=== PATIENT | female | born 1945 | race Caucasian/White ===

== ENCOUNTER 2022-12-07 10:30 | Outpatient (RCR) | payer MEDICARE, BC, SELFPAY ==
--- NOTE | 2022-09-18 11:49 | HP.PTEVAL_ITS ---
Patient's Visit Information BURT FERNANDEZ is a 77 year old F referred to Physical Therapy by Dr. Reggie Vela MD with a diagnosis of L reverse TSA. Date of Evaluation: 09/18/22 Physical Therapist: Rob Cruz PT, ATC - Visit Plan Frequency: 2-3x /Week Duration: 4-6 Weeks Plan: Follow protocol in Chart. PROM for first 3 weeks, then AAROM for weeks 4- 6. Progress to strengthening at week 6 to focus on rotator cuff and scapular strengthening ex's - Subjective DOS: 09/11/22. Pt reports she had a lot of pain with specific movements prior to having a L reverse TSA. Pt reports she was in a mopad injury a couple of years ago and believes this may have been what caused her shoulder to degenerate. Pt reports she has only taken 2 oxicodons since her surgery. Pt is able to manage most of her pain through the use of icing. Pt is R hand dominant. Pt reports no sleep difficulty at this time secondary to pain. Pt denies L UE radiculopathy at this time. Pt reports she likes to quilt and looks forward to being able to do that again. Pt also notes she likes to work in her flower beds. Pt also notes she is unable to perform house cleaning chores which she would like to get back to. 1/10 pain while pt is sitting here in the clinic, 6/10 pain at worst - Pain L shoulder Pain Intensity (Out of 10): 1 Pain Intensity Range: 6 - Objective Neuro: B UE sensation is WNL to light touch. ROM: R shoulder AROM flex= 105, abd= 100, ER= 25, IR WFL; L shoulder PROM flex= 45, scap = 45 degrees. MMT: R shoulder flex= 10, abd= 17, ER= ,12 IR= 13#F; L shoulder not tested this date but rated at 1/5 due to having minimal AROM - Balance/Special Test Scores Quick DASH Score: 34.0900 - Goals Goal 1:: Decrease L shoulder pain x 50% to aid with IADL's Goal Time Frame: 4-6 Weeks Goal 2:: Increase L shoulder flex and abd ROM x 40 degrees to aid with overhead lifting Goal Time Frame: 4-6 Weeks Goal 3:: Increase L shoulder strength to within 90% of R shoulder strength to aid with IADL's Goal Time Frame: 4-6 Weeks Goal 4:: I with HEP Goal Time Frame: 4-6 Weeks - Rehabilitation Potential Physical Therapy Diagnosis: L shoulder pain, weakness, and limited ROM secondary to reverse L TSA Rehabilitation Potential: Good - Anticipated Interventions Patient/Client Instruction: Educate patient on: Condition, Plan of Care For the Purpose of:: To improve self management Therapeutic Exercise to Include: Strength training, Endurance training, Flexibilty training, Passive ROM, Active ROM, Scapular Strength/Stabilization For the Purpose of:: To decrease pain, To increase ROM, To improve muscle performance and motor function Cryotherapy (ice pack, ice massage): Yes For the Purpose of:: To decrease pain Thank you for the opportunity to evaluate your patient. For Medicare and Medicare HMO plans, please review the plan of care and approve it. It will need to be FAXED BACK to us at [phone] for Medicare purposes. For Medicare only, by signing this I certify the plan of care. Please let me know if there are questions or concerns regarding this plan of care. Physician Signature: Date:
--- NOTE | 2022-10-18 07:32 | HP.PTREVAL ---
Dr. Reggie Vela MD, It has been my pleasure to treat BURT FERNANDEZ over the last 9 visits for L reverse TSA 09/11/22. Please see the progress note below for an update on the physical therapy plan of care! Subjective: I feel like I am ready to be done. My pain is the worst at night. Objective/Function: L shoulder pain ranges from 2-4/10. L shoulder ROM: flex= 80, abd= 75 degrees. L shoulder MMT: flex= 5.3, abd= 10, ER= 6.3, IR= 10 #F. Pt is progressing well toward Rx goals Plan Plan: Cont 2 times per week for 2 weeks. Issue and instruct pt on HEP of rotator cuff strengthening Balance/Gait/Functional tests - Balance/Special Test Scores Quick DASH Score: 50.0000 Goals Goal 1:: Decrease L shoulder pain x 50% to aid with IADL's Goal Time Frame: 4-6 Weeks Goal Progress: Progressing Goal 2:: Increase L shoulder flex and abd ROM x 40 degrees to aid with overhead lifting Goal Time Frame: 4-6 Weeks Goal Progress: Progressing Goal 3:: Increase L shoulder strength to within 90% of R shoulder strength to aid with IADL's Goal Time Frame: 4-6 Weeks Goal Progress: Progressing Goal 4:: I with HEP Goal Time Frame: 4-6 Weeks Goal Progress: Progressing Anticipated Interventions Patient/Client Instruction: Educate patient on: Condition, Plan of Care For the Purpose of:: To improve self management Therapeutic Exercise to Include: Strength training, Endurance training, Flexibilty training, Passive ROM, Active ROM, Scapular Strength/Stabilization For the Purpose of:: To decrease pain, To increase ROM, To improve muscle performance and motor function Cryotherapy (ice pack, ice massage): Yes For the Purpose of:: To decrease pain Please do not hesitate to contact me at [phone] by phone or if you have questions or concerns regarding this new plan of care! Sincerely, Rob Cruz, PT, ATC
--- NOTE | 2022-11-08 08:58 | HP.PTREVAL ---
Dr. Reggie Vela MD, It has been my pleasure to treat BURT FERNANDEZ over the last 14 visits for L reverse TSA 09/11/22. Please see the progress note below for an update on the physical therapy plan of care! Subjective: Pt reports she saw the PA yesterday, and they want her to continue with focus on ROM Objective/Function: L shoulder pain 0/10. L shoulder MMT: flex= 8, abd= 15, ER= 8, IR= 13 #F. L shoulder ROM: flex= 90, abd= 75, ER= 10. Pt is progressing well toward Rx goals Plan Plan: Continue with POC with primary focus on ROM and strengthening above shoulder level Balance/Gait/Functional tests - Balance/Special Test Scores Quick DASH Score: 27.2720 Goals Goal 1:: Decrease L shoulder pain x 50% to aid with IADL's Goal Time Frame: 4-6 Weeks Goal Progress: Progressing Goal 2:: Increase L shoulder flex and abd ROM x 40 degrees to aid with overhead lifting Goal Time Frame: 4-6 Weeks Goal Progress: Progressing Goal 3:: Increase L shoulder strength to within 90% of R shoulder strength to aid with IADL's Goal Time Frame: 4-6 Weeks Goal Progress: Progressing Goal 4:: I with HEP Goal Time Frame: 4-6 Weeks Goal Progress: Progressing Anticipated Interventions Patient/Client Instruction: Educate patient on: Condition, Plan of Care For the Purpose of:: To improve self management Therapeutic Exercise to Include: Strength training, Endurance training, Flexibilty training, Passive ROM, Active ROM, Scapular Strength/Stabilization For the Purpose of:: To decrease pain, To increase ROM, To improve muscle performance and motor function Cryotherapy (ice pack, ice massage): Yes For the Purpose of:: To decrease pain Please do not hesitate to contact me at [phone] by phone or if you have questions or concerns regarding this new plan of care! Sincerely, Rob Cruz, PT, ATC
--- NOTE | 2022-12-07 11:05 | HP.PTDCSUM ---
It has been my pleasure to treat BURT FERNANDEZ referred by Dr. Reggie Vela MD, with the diagnosis of L reverse TSA 09/11/22 for a total of 22 visit(s). Discharge Date: Please see the following information for a summary of their discharge status. Subjective: I think I am ready to be done now L shoulder Pain Intensity (Out of 10): 0 % Improvement: 90 Objective/Function: L shoulder pain is 0/10. Pt is I with HEP. MMT: L shoulder flex= 8, abd= 15, ER= 11, IR= 12; R shoulder flex= 7, abd= 16, ER= 12, IR= 12 #F. L shoulder ROM: flex= 95, abd= 90 degrees. Rx goals achieved Goal 1:: Decrease L shoulder pain x 50% to aid with IADL's Goal Progress: Goal Met Goal 2:: Increase L shoulder flex and abd ROM x 40 degrees to aid with overhead lifting Goal Progress: Progressing Goal 3:: Increase L shoulder strength to within 90% of R shoulder strength to aid with IADL's Goal Progress: Progressing Goal 4:: I with HEP Goal Progress: Goal Met Plan: Discharge If there are questions or concerns regarding this patient's physical therapy, please feel free to call me at [phone]. Thank you for the referral of this patient. Sincerely, Rob Cruz, PT, ATC Balance/Gait/Functional tests - Balance/Special Test Scores Quick DASH Score: 20.4547
== END 2022-12-07 12:41 | disposition home or self-care (01) ==
LOC: PT 10:30
PROVIDERS: PCP Internal Medicine; Referring Provider Orthopaedic Surgery; Visit Provider Orthopaedic Surgery
DX: M19.012 Primary osteoarthritis, left shoulder (principal)
CPT/HCPCS: 97110; 97140; 97161; 97164

== ENCOUNTER 2023-07-01 16:56 | Emergency (ER) | payer MEDICARE, BC, SELFPAY ==
[2023-07-01] VITALS (11 sets, daily range): BP systolic 150–227; BP diastolic 8–89; PULSE 61–69; RESP 14–18; TEMP 36.4; O2SAT 95–98; BMI 32.7
--- NOTE | 2023-07-01 17:30 | CT_ITS ---
STUDY: CT BRAIN WITHOUT CONTRAST REASON FOR EXAM: Female, 77 years old. Syncope RADIATION DOSAGE (If Supplied By Facility): CTDIvol = ( 44.99 ) mGy, DLP = ( 829.85 ) mGycm TECHNIQUE: Transaxial CT imaging of the brain was performed without administration of intravenous contrast material. Individualized dose optimization techniques were used for this CT. COMPARISON: No relevant priors. FINDINGS: Normal soft tissue structures. Normal calvarium. There is mild cerebral atrophy with widening of the extra-axial spaces and ventricular dilatation. There are areas of decreased attenuation within the white matter tracts of the supratentorial brain, consistent with microvascular disease changes. There is no intracranial hemorrhage. There are no findings of an acute ischemic infarction. Fluid level in the left maxillary sinus. CT/Brain/Head without Contrast IMPRESSION: Acute left maxillary sinusitis. Mild microvascular ischemic changes. Atrophy. Electronically Signed: Radha Mac MD at 18:39 EDT Reading Location ID and State: [id number] / Tel , Service support ,
[2023-07-01] MEDS: Labetalol (Prefilled) 20 MG/4 ML IV (17:36)
[2023-07-01 17:39] LABS: Bedside Glucose 90 mg/dL (74-106)
--- NOTE | 2023-07-01 17:45 | EKG12_ITS ---
Test Reason : syncope Blood Pressure : / mmHG Vent. Rate : 065 BPM Atrial Rate : 065 BPM P-R Int : 140 ms QRS Dur : 114 ms QT Int : 436 ms P-R-T Axes : 039 -14 098 degrees QTc Int : 453 ms Normal sinus rhythm Incomplete left bundle branch block Left ventricular hypertrophy with repolarization abnormality ( R in aVL , Walker product ) Abnormal ECG Confirmed by TACO MARIE ([id number]), editorial director SHRUTHI HOPKINS ([id number]) on 07/09/2023 2:02:41 PM Referred By: Awa Confirmed By:TACO MARIE
[2023-07-01 17:51] LABS: Absolute Lymphocyte Count 2.27 X10^3/uL (0.83-4.51); Absolute Neutrophil Count 2.7 X10^3/uL (2.0-7.7); Basophil# 0.04 X10^3/uL; Basophil% 0.7 % (0-1); Eosinophil# 0.13 X10^3/uL; Eosinophils% 2.4 % (0-5); Hematocrit 45.8 % (37-47); Hemoglobin 14.8 g/dL (12.0-15.0); Lymphocyte # 2.27 X10^3/ul (0.83-4.51); Lymphocyte % 41.2 % (19-41); Mean Corp Hgb Conc 32.3 g/dL (32-36); Mean Platelet Vol. 10.1 fl (6.2-12.0); Monocyte# 0.39 X10^3/uL; Monocyte% 7.1 % (0-10); NRBC Flagged by Analyzer 0 % (0-5); Neutrophil # 2.67 X10^3/uL (2.7-7.7); Neutrophil % 48.4 % (47-70); Platelet Count 246 K/mm3 (150-450); RBC Distribution Width CV 13.2 % (11.6-14.6); RBC Distribution Width SD 47.1 fl (35.1-43.9); Red Blood Count 4.77 M/mm3 (4.2-5.4); White Blood Count 5.5 K/mm3 (4.4-11.0)
[2023-07-01 17:59] LABS: International Normalized Ratio 0.9; Prothrombin Time (Protime)PT. 12.2 SECONDS (11.7-14.9)
[2023-07-01 18:00] LABS: Partial Thromboplast Time 24.3 Seconds (24.1-36.2)
[2023-07-01 18:15] LABS: Bacteria 0 SEEN /hpf (None Seen); Mucous, Urine 0 SEEN /hpf (<or=2+)
[2023-07-01 18:16] LABS: Color, Urine Yellow (Yellow); Glucose, Dipstick Normal (Normal); Ketone-Dipstick Negative (Negative); Leukocyte Esterase-Dipstick 25 /ul (Negative); Nitrite-Dipstick Negative (Negative); Occult Blood-Urine 50 /ul (Negative); Protein-Dipstick Negative (Negative); Urine Bilirubin Dipstick Negative (Negative); Urine Urobilinogen Normal (Normal)
[2023-07-01 18:17] LABS: Anion Gap 7 (5-15); BUN 20 mg/dL (7-18); BUN/Creat Ratio 24.7 RATIO (10-20); Calcium,Total 9.7 mg/dL (8.5-10.1); Chloride 104 mmol/L (98-107); Creatinine, Serum 0.81 mg/dL (0.55-1.02); EST Glomerular Filtration Rate 72 mL/min (>60); Est Glom Filt Rate - Afr Amer 87 mL/min (>60); Estimated Creatinine Clearance 46.59 ml/min; Glucose 91 mg/dL (74-106); Potassium 4.1 mmol/L (3.5-5.1); Sodium Level 139 mmol/L (136-145); Troponin-I HS (w/2H Reflex) 6 pg/mL (3.0-54.0)
[2023-07-01 18:23] LABS: Red Blood Cells-Urine 0-5 SEEN /hpf (0-5); Squamous Epithelial Cells - UA 0-5 SEEN /hpf (5-10); Urine Clarity Sl Cldy (Clear); White Blood Cells 0-5 SEEN /hpf (0-5)
--- NOTE | 2023-07-01 18:37 | EDS_ITS ---
HPI History of Present Illness Chief Complaint: Syncope Informant: patient Onset/Context/Timing Onset: Today Context: Sudden Onset Timing: Continuous Quality: Lightheaded Location: Generalized Worsened by: Nothing Relieved by: Nothing Narrative Narrative: Patient presents with a near syncopal episode that occurred today. Patient states it came on rather suddenly. Patient states she felt lightheaded while she was washing dishes. Patient states she was able to go and sit down. Patient did not lose consciousness. Patient states she still feels somewhat lightheaded. Patient states nothing makes it worse and nothing makes it better. Patient denies any chest pain or shortness of breath. Patient denies any nausea or vomiting. Patient denies any diaphoresis. Patient is on verapamil for her high blood pressure. Patient states she took that today. [facility] Medical History Hypertension Hyperthyroidism Overactive bladder Home Medications aspirin 81 mg capsule 81 mg PO DAILY 07/01/23 [History Last Taken Unknown] levothyroxine 25 mcg tablet 25 mcg PO DAILY 07/01/23 [History Last Taken Unknown] lisinopril 10 mg tablet 10 mg PO DAILY #30 tabs 07/01/23 [Rx Last Taken Unknown] tolterodine 2 mg tablet 2 mg PO DAILY 07/01/23 [History Last Taken Unknown] verapamil 240 mg tablet,extended release 240 mg PO DAILY 07/01/23 [History Last Taken Unknown] Allergy/AdvReac Type Severity Reaction Status Date / Time Sulfa (Sulfonamide Allergy Unknown PT UNSURE Verified 07/01/23 16:59 Antibiotics) OF REACTION Surgical History H/O shoulder replacement Hx of tonsillectomy Social History Smoking Status: Never smoker ROS ROS ED Constitutional Constitutional ED: Denies chills or fever(s) Eyes Eyes: Denies blurry vision or change in vision ENT ENT ED: Denies rhinorrhea or sore throat Cardiovascular Cardiovascular: Denies chest pain or palpitations Respiratory/Chest Respiratory/Chest: Denies cough or dyspnea Gastrointestinal Gastrointestinal: Denies nausea or vomiting Genitourinary Genitourinary ED: Denies dysuria or hematuria Musculoskeletal Musculoskeletal: Denies back pain or neck pain Integumentary Denies abscess or rash Neurologic Neurologic: Reports weakness; Denies headache(s) Allergic/Immunologic Allergic/Immunologic ED: Denies mouth swelling or urticaria EXAM Physical Exam Const Vital Signs: 07/01/23 16:59 07/01/23 17:06 07/01/23 17:11 Temperature 97.5 F L Temperature Source Temporal Pulse Rate 64 69 Pulse Rate [Lying] Pulse Rate [Sitting (for 1 minute prior to obtaining)] Pulse Rate [Standing (for 1 minute prior to obtaining)] Respiratory Rate 18 17 Respiratory Effort Normal Non-Labored Respiratory Pattern Normal Blood Pressure 197/73 H 227/77 H Blood Pressure [Lying] Blood Pressure [Sitting (for 1 minute prior to obtaining)] Blood Pressure [Standing (for 1 minute prior to obtaining)] Blood Pressure Mean 114 127 Blood Pressure Mean [Lying] Blood Pressure Mean [Sitting (for 1 minute prior to obtaining)] Blood Pressure Mean [Standing (for 1 minute prior to obtaining)] Pulse Ox 97 98 Oxygen Delivery Method Room Air Room Air 07/01/23 17:16 07/01/23 17:30 07/01/23 18:00 Temperature Temperature Source Pulse Rate 61 Pulse Rate [Lying] Pulse Rate [Sitting (for 1 minute prior to obtaining)] Pulse Rate [Standing (for 1 minute prior to obtaining)] Respiratory Rate 16 Respiratory Effort Respiratory Pattern Blood Pressure 204/89 H 192/72 H 166/89 H Blood Pressure [Lying] Blood Pressure [Sitting (for 1 minute prior to obtaining)] Blood Pressure [Standing (for 1 minute prior to obtaining)] Blood Pressure Mean 127 112 114 Blood Pressure Mean [Lying] Blood Pressure Mean [Sitting (for 1 minute prior to obtaining)] Blood Pressure Mean [Standing (for 1 minute prior to obtaining)] Pulse Ox 97 Oxygen Delivery Method Room Air 07/01/23 18:31 07/01/23 18:48 07/01/23 18:48 Temperature Temperature Source Pulse Rate Pulse Rate [Lying] 64 Pulse Rate [Sitting (for 1 minute prior to obtaining)] 64 Pulse Rate [Standing (for 1 minute prior to obtaining)] 63 Respiratory Rate Respiratory Effort Respiratory Pattern Blood Pressure 158/63 H 154/88 H Blood Pressure [Lying] 168/64 H Blood Pressure [Sitting (for 1 minute prior to obtaining)] 170/71 H Blood Pressure [Standing (for 1 minute prior to obtaining)] 180/8 H Blood Pressure Mean 94 110 Blood Pressure Mean [Lying] 98 Blood Pressure Mean [Sitting (for 1 minute prior to obtaining)] 104 Blood Pressure Mean [Standing (for 1 minute prior to obtaining)] 65 Pulse Ox Oxygen Delivery Method 07/01/23 19:00 07/01/23 20:00 Temperature Temperature Source Pulse Rate 63 66 Pulse Rate [Lying] Pulse Rate [Sitting (for 1 minute prior to obtaining)] Pulse Rate [Standing (for 1 minute prior to obtaining)] Respiratory Rate 14 16 Respiratory Effort Respiratory Pattern Blood Pressure 175/67 H 182/74 H Blood Pressure [Lying] Blood Pressure [Sitting (for 1 minute prior to obtaining)] Blood Pressure [Standing (for 1 minute prior to obtaining)] Blood Pressure Mean 103 110 Blood Pressure Mean [Lying] Blood Pressure Mean [Sitting (for 1 minute prior to obtaining)] Blood Pressure Mean [Standing (for 1 minute prior to obtaining)] Pulse Ox 95 95 Oxygen Delivery Method Room Air Room Air Positive well nourished and well developed General Appearance ED: well developed and NAD HEENT Reports moist mucous membranes Neck supple and no JVD Resp normal respiratory effort and clear to auscultation bilaterally Cardio regular rate and regular rhythm GI normal to inspection, nondistended, normoactive bowel sounds and non-tender Palpation: soft Extremity normal to inspection General Extremety ED: Yes edema; Negative for tenderness General Extremity: edema right lower extremity Neuro oriented x3, CN's II-XII intact bilaterally and no sensory deficits noted Sensorium / Orientation: alert Motor Exam: strength 5/5 throughout Psych mental status grossly normal Skin no rashes or lesions noted MDM MDM MDM Narrative Medical decision making narrative: Differential diagnosis includes dehydration, electrolyte abnormality, cardiac dysrhythmia, cardiac ischemia, stroke, hypertensive urgency, urinary tract infection, and hyperthyroidism. CT scan of the brain will be obtained to assess for intracranial bleeding and stroke. EKG will be obtained to assess for cardiac dysrhythmia and cardiac ischemia. CBC will be obtained to assess for leukocytosis and anemia. Basic metabolic profile will be obtained to assess for electrolyte abnormality and renal function. PT with INR and PTT will be obtained to assess for coagulopathy. Urinalysis will be obtained to assess for urinary tract infection and hematuria. High-sensitivity troponin will be obtained to assess for cardiac ischemia. Lab Data Attestation: I reviewed the patient's lab results. Lab results narrative: CBC was reviewed and was within normal limits. PT with INR and PTT were reviewed and were within normal limits. Basic metabolic profile was reviewed and was within normal limits. High-sensitivity troponin was reviewed and was normal at 6. Urinalysis was reviewed. There is no evidence of urinary tract infection or hematuria. 2-hour repeat high-sensitivity troponin was reviewed and was normal at 6. TSH was reviewed and was slightly elevated at 4.84. Labs: Laboratory Results - last 24 hr 07/01/23 07/01/23 07/01/23 17:21 17:39 18:11 WBC 5.5 RBC 4.77 Hgb 14.8 Hct 45.8 MCV 96.0 MCH 31.0 MCHC 32.3 RDW Std Deviation 47.1 H RDW Coeff of Deepika 13.2 Plt Count 246 MPV 10.1 Immature Gran % (Auto) 0.200 Neut % (Auto) 48.4 Lymph % (Auto) 41.2 H [place] % (Auto) 7.1 Eos % (Auto) 2.4 Baso % (Auto) 0.7 Absolute Neuts (auto) 2.7 Absolute Lymphs (auto) 2.27 Nucleated RBC % 0 PT 12.2 INR 0.9 APTT 24.3 Sodium 139 Potassium 4.1 Chloride 104 Carbon Dioxide 28.0 Anion Gap 7 BUN 20 H Creatinine 0.81 Estim Creat Clear Calc 46.59 Est GFR (MDRD) Af Amer 87 Est GFR (MDRD) Non-Af 72 BUN/Creatinine Ratio 24.7 H Glucose 91 Calcium 9.7 Troponin I High Sens 6 TSH Urine Color Yellow Urine Clarity Sl Cldy Urine pH 7.0 Ur Specific [place] 1.010 Urine Protein Negative Urine Glucose (UA) Normal Urine Ketones Negative Urine Occult Blood 50 H Urine Nitrite Negative Urine Bilirubin Negative Urine Urobilinogen Normal Ur Leukocyte Esterase 25 H Urine RBC 0-5 SEEN Urine WBC 0-5 SEEN Ur Squamous Epith Cells 0-5 SEEN Urine Bacteria 0 SEEN Urine Mucus 0 SEEN POC Glucose 90 07/01/23 19:38 WBC RBC Hgb Hct MCV MCH MCHC RDW Std Deviation RDW Coeff of Deepika Plt Count MPV Immature Gran % (Auto) Neut % (Auto) Lymph % (Auto) [place] % (Auto) Eos % (Auto) Baso % (Auto) Absolute Neuts (auto) Absolute Lymphs (auto) Nucleated RBC % PT INR APTT Sodium Potassium Chloride Carbon Dioxide Anion Gap BUN Creatinine Estim Creat Clear Calc Est GFR (MDRD) Af Amer Est GFR (MDRD) Non-Af BUN/Creatinine Ratio Glucose Calcium Troponin I High Sens 6 TSH 4.84 H Urine Color Urine Clarity Urine pH Ur Specific [place] Urine Protein Urine Glucose (UA) Urine Ketones Urine Occult Blood Urine Nitrite Urine Bilirubin Urine Urobilinogen Ur Leukocyte Esterase Urine RBC Urine WBC Ur Squamous Epith Cells Urine Bacteria Urine Mucus POC Glucose Radiography Diagnostic Testing: Clinical Impression(s) from Imaging Studies Brain CT 07/01/23 17:30 IMPRESSION: Acute left maxillary sinusitis. Mild microvascular ischemic changes. Atrophy. Electronically Signed: Radha Mac MD at 18:39 EDT Reading Location ID and State: [id number] / Tel , Service support , CT scan of the brain was obtained. There is no acute intracranial abnormality. This was interpreted by the radiologist and was also independently reviewed by myself. EKG Initial EKG: Attestation: I personally reviewed and interpreted this EKG as follows: Interpretation: Sinus Rhythm (65), No Acute Injury Pattern, LBBB (Incomplete) and Non-Specific ST Changes Comments: EKG was obtained. On my independent interpretation, it showed a normal sinus rhythm with a rate of 65. TN interval, QRS interval, and QTc intervals were all normal. Girard was normal. There is left ventricular hypertrophy noted. There are nonspecific ST-T wave changes. There is an incomplete left bundle branch block pattern noted. Prior EKG tracings: not available for review Prior: No Prior Management Discussion w/another healthcare provider: Supervisor [employer] Treatment and Re-Evaluation :: Patient was given a dose of labetalol for her blood pressure. Patient's blood pressure improved to 158/63. Patient was feeling better after this. Patient was advised of her findings. Case was discussed with Dr. Philip. He recommended starting the patient on lisinopril for her blood pressure. He also stated that the patient may need a 30-day event monitor. Patient was instructed to continue to monitor her blood pressures at home. Patient was instructed to follow-up with her primary care physician in 3 to 5 days for further evaluation. Patient and family understood and were agreeable with the plan. All questions were answered. Discharge Plan Triage Chief Complaint: Syncope ED Provider: Enrique Bedolla Dx/Rx/DC Orders Clinical Impression: Near syncope, Hypertension Instructions: ED Hypertension, Established, ED Near-Fainting, Uncertain Cause Prescriptions: New lisinopril 10 mg tablet 10 mg PO DAILY Qty: 30 0RF No Action verapamil 240 mg tablet extended release 240 mg PO DAILY Patient Comments: TAKE 1 TABLET BY MOUTH EVERY DAY levothyroxine 25 mcg tablet 25 mcg PO DAILY Patient Comments: TAKE 1 TABLET BY MOUTH ONCE DAILY. TAKE ON EMPTY STOMACH. FOR THYROID. aspirin 81 mg capsule 81 mg PO DAILY tolterodine 2 mg tablet 2 mg PO DAILY Primary Care Provider: Heather Desouza Referrals: Heather Desouza MD [Primary Care Provider] - 3-5 Days Disposition Disposition: Home, Self Care
[2023-07-01 19:48] LABS: Reflex Troponin-HS? (from REC) Y
[2023-07-01 20:10] LABS: Thyroid Stim Hormone (TSH) 4.84 uIU/mL (0.358-3.74)
[2023-07-01 20:12] LABS: Troponin-I HS 6 pg/mL (3.0-54.0)
== END 2023-07-01 21:41 | disposition home or self-care (01) ==
PROVIDERS: Emergency Provider Emergency Medicine; PCP Internal Medicine; Visit Provider Emergency Medicine
DX: R55 Syncope and collapse (principal); I10 Essential (primary) hypertension; E05.90 Thyrotoxicosis, unspecified without thyrotoxic crisis or storm; Z79.899 Other long term (current) drug therapy; Z79.82 Long term (current) use of aspirin; Z96.619 Presence of unspecified artificial shoulder joint
CPT/HCPCS: 70450; 80048; 81001; 82962; 84443; 84484; 85025; 85610; 85730; 93005; 96374; 99285; A4216

== ENCOUNTER → 2023-09-05 | Outpatient (CLI) | payer MEDICARE, BC, SELFPAY ==
--- NOTE | 2023-09-05 17:41 | STRESSREP_ITS ---
Stress Test Report Exercise myocardial perfusion stress test. 78-year-old lady with a history of syncope Stress protocol: Resting EKG demonstrates normal sinus rhythm with a rate of 66 bpm resting blood pressure is 162/80 mmHg. The patient exercised according to the regular Gilmer protocol for a total duration of 4 minutes attaining a maximum heart rate of 148 bpm which was 105% of maximum predicted heart rate; the maximum workload was 7 metabolic equivalents. At rest there were no ST or T wave changes noted to suggest ischemia and at peak exercise upsloping ST changes only were noted which did not meet the criteria for ischemia. During recovery there were ST changes noted in lead V1 and V2 only without any reciprocal changes. No clinical angina was noted the test was terminated due to the target heart rate being achieved/fatigue. The patient became mildly presyncopal post exercise. The peak blood pressure was 218/82 mmHg. Rate-pressure product was 28,100. Myocardial perfusion protocol. 12.0 mCi of technetium 99m sestamibi was injected at rest. The patient exercised according to regular Gilmer protocol for total duration of 4 minutes an d at peak exercise 34.7 mCi of technetium 99m sestamibi was injected stress images were obtained stress and rest images were reconstructed in comparing the short axis vertical long and horizontal long axis. Gated images were also obtained. Perfusion SPECT analysis: Review of the stress images demonstrate normal uptake of tracer noted in all areas of the myocardium. The resting images similarly demonstrate normal uptake of tracer noted in all areas of the myocardium. No areas of reversibility are noted to suggest ischemia no previous infarct was noted. Gated SPECT analysis: The gated ejection fraction is 60%. Conclusion: Normal exercise myocardial perfusion stress test at a moderate workload EKG changes noted in lead V1 and V2 concerning for ischemia Preserved ejection fraction.
== END | disposition home or self-care (01) ==
LOC: CVS 07:07
PROVIDERS: PCP Internal Medicine; Referring Provider Internal Medicine Cardiovascular Disease; Visit Provider Internal Medicine Cardiovascular Disease
DX: R94.31 Abnormal electrocardiogram [ECG] [EKG] (principal)
CPT/HCPCS: 78452; 93017; A9500; A4216

== ENCOUNTER 2023-09-14 06:47 | Day surgery (SDC) | payer MEDICARE, BC, SELFPAY ==
--- NOTE | 2023-09-11 07:06 | RAD_ITS ---
STUDY: X-RAY CHEST REASON FOR EXAM: Female, 78 years old. pre-operative: [facility] -- -- no current chest complaints per pt, pre heart cath TECHNIQUE: PA and lateral views of the chest. COMPARISON: None. FINDINGS: The lungs are clear and expanded. There is no demonstrated pleural abnormality. Normal size heart. Normal mediastinum and chayito. Normal visualized pulmonary arteries. Normal visualized aortic arch and descending thoracic aorta. Normal visualized thoracic spine. Status post left shoulder reverse arthroplasty. There is no demonstrated abnormality of the visualized soft tissue structures of the upper abdomen. RAD/Chest PA and Lateral IMPRESSION: No active disease. Electronically Signed: Colin Denson MD at 18:13 EDT ,
[2023-09-11 07:31] LABS: Absolute Lymphocyte Count 1.64 X10^3/uL (0.83-4.51); Absolute Neutrophil Count 1.9 X10^3/uL (2.0-7.7); Basophil# 0.03 X10^3/uL; Basophil% 0.7 % (0-1); Eosinophil# 0.16 X10^3/uL; Eosinophils% 3.9 % (0-5); Hematocrit 43.4 % (37-47); Hemoglobin 14.2 g/dL (12.0-15.0); Lymphocyte # 1.64 X10^3/ul (0.83-4.51); Lymphocyte % 40.4 % (19-41); Mean Corp Hgb Conc 32.7 g/dL (32-36); Mean Corpuscular Hgb 31.6 pg (27.0-32.0); Mean Corpuscular Volume 96.7 fL (81-99); Mean Platelet Vol. 9.9 fl (6.2-12.0); Monocyte# 0.37 X10^3/uL; Monocyte% 9.1 % (0-10); NRBC Flagged by Analyzer 0 % (0-5); Neutrophil # 1.85 X10^3/uL (2.7-7.7); Neutrophil % 45.7 % (47-70); Platelet Count 261 K/mm3 (150-450); RBC Distribution Width CV 13.2 % (11.6-14.6); RBC Distribution Width SD 47.1 fl (35.1-43.9); Red Blood Count 4.49 M/mm3 (4.2-5.4); White Blood Count 4.1 K/mm3 (4.4-11.0)
[2023-09-11 07:42] LABS: International Normalized Ratio 0.9; Partial Thromboplast Time 27.7 Seconds (24.1-36.2); Prothrombin Time (Protime)PT. 12.6 SECONDS (11.7-14.9)
[2023-09-11 08:26] LABS: Anion Gap 3 (5-15); BUN 20 mg/dL (7-18); BUN/Creat Ratio 23.4 RATIO (10-20); Calcium,Total 9.1 mg/dL (8.5-10.1); Chloride 108 mmol/L (98-107); Creatinine, Serum 0.86 mg/dL (0.55-1.02); EST Glomerular Filtration Rate 68 mL/min (>60); Est Glom Filt Rate - Afr Amer 82 mL/min (>60); Glucose 98 mg/dL (74-106); Potassium 4.3 mmol/L (3.5-5.1); Sodium Level 141 mmol/L (136-145)
--- NOTE | 2023-09-11 08:56 | PCM.HP.BLA ---
History and Physical Date of Admission: 09/14/23 This is a pleasant 78-year-old lady who presents for a cardiac catheterization, following an abnormal stress test. She is an active lady who presented to the office for evaluation of syncope. She did have a previous cardiac evaluation here in 2008 with an angiogram which demonstrated no obstructive coronary disease. She subsequently moved to [place] in [place]. She came back recently. Interestingly while she was in [place] in 2010 she had presented with a presyncopal episode was worked up with a stress test and there was no evidence of ischemia. Her ejection fraction was noted to be normal. She has maintained a normal sinus rhythm with an incomplete left bundle branch block. During her recent visit to the emergency room in June of this year blood work was noted to be normal EKG was unremarkable and blood pressure was elevated. An echocardiogram was performed post admission which demonstrated preserved left ventricular systolic function with an estimated ejection fraction of 56%. No wall motion abnormalities were noted. She tells me that she is doing quite well. Her physical exam here today is unremarkable. Intake Vital Signs See EMR Allergies See EMR Medications See EMR REPLACED BY [facility] Medical History Diverticulosis Essential hypertension Hypothyroidism Migraine Obesity Osteoarthritis Overactive bladder SCC (squamous cell carcinoma) Syncope Surgical History H/O shoulder replacement History of colonoscopy History of left heart catheterization (04/05/09) History of tubal ligation Hx of tonsillectomy Family History Sister CAD (coronary artery disease) Diabetes Brain tumorBrother Diabetes Heart diseaseMother Diabetes Heart diseaseFather Heart disease Social History Smoking Status: Never smoker alcohol intake: never substance use type: does not use caffeine: Yes Type: carbonated beverages ROS Const Const: Negative for fatigue, weakness, headache(s), daytime sleepiness or difficulty sleeping Eyes Eyes: Negative for change in vision ENT ENT: Negative for headache(s), dizziness or Nosebleed/epistaxis Cardio Chest Pain: No Palpitations: No Edema: Bilateral (trace) Resp Respiratory: Negative for SOB with activity, SOB at rest, SOB orthopnea\SOB lying down or Cough GI GI: Negative nausea, vomiting or heartburn Neuro Neuro: Negative for dizziness, lightheadedness, near syncope, headache(s) or weakness Endo Endo: Negative for fatigue Cardiology Exam Const Appearance: cooperative, healthy appearing, no acute distress, well developed and well groomed Nutritional Appearance: average body habitus and well nourished Orientation: alert, awake and oriented x3 Head Head: normal to inspection, normocephalic and atraumatic Ears: hearing grossly normal bilaterally and external ears normal Nose: external nose normal, nares normal, nasal mucous membranes and turbinates normal, septum normal and no nasal discharge Face and Sinus: face symmetric Mouth: oral mucosae normal, tongue normal, oropharynx normal and moist mucous membranes Teeth and gingiva: dentition normal Throat: posterior oropharynx normal, tonsils normal and uvula midline Eyes General: appearance normal, both eyes and all related structures Eyelids: eyelids normal Conjunctivae: conjunctivae normal Pupils: PERRL, normal by confrontation and accommodation normal EOM: EOM intact bilaterally Neck Neck: normal visual inspection, trachea midline and no JVD JVD: +5 Carotids: normal carotid upstroke and bounding pulses Chest Chest inspection: normal inspection of the chest, symmetric chest movement and normal respiratory effort Auscultation: Bilateral: Clear to Auscultation Cardio Palpation: normal PMI Rate: regular rate Rhythm: regular rhythm Heart sounds: S1 normal, S2 normal and normal, physiologic split S2; Negative rub, gallop or murmur GI GI: normal to inspection, soft, no hepatosplenomegaly and bowel sounds present Neuro General: patient alert, patient awake, patient oriented x3, gait normal, moves all extremities and no focal sensory deficit Skin Skin: no rashes or lesions noted Extremities Pulses: Normal: Right Femoral Pulse, Left Femoral Pulse, Right Dorsalis Pedis Pulse, Left Dorsalis Pedis Pulse, Right Posterior Tibial Pulse, Left Posterior Tibial Pulse, Right Radial Pulse and Left Radial Pulse Lower Extremity Edema: None: Bilateral Musculoskel Musculoskeletal: No joint tenderness Psych Psychological: normal affect Supplemental Info Supplemental Information Echocardiogram 07/06/2023 CONCLUSIONS: - Technically difficult exam due to body habitus. - Exam indication: Syncope - The left ventricle is normal in size. There is mild concentric left ventricular hypertrophy. Left ventricular systolic function is normal. EF = 56 ? 5% (2D 4-ch.) ?Indeterminate left ventricular diastolic dysfunction. - The right ventricle is normal in size. Right ventricular systolic function is normal. - The patient has not had a prior CC echocardiographic exam for comparison. Stress Test 08/13/2011 Interpretation Summary Normal nuclear stress test 1. No evidence for infarct or ischemia. 2. Normal systolic function, EF 73%. Stress test 09/05/2023: Exercise myocardial perfusion stress test. 78-year-old lady with a history of syncope Stress protocol: Resting EKG demonstrates normal sinus rhythm with a rate of 66 bpm resting blood pressure is 162/80 mmHg. The patient exercised according to the regular Gilmer protocol for a total duration of 4 minutes attaining a maximum heart rate of 148 bpm which was 105% of maximum predicted heart rate; the maximum workload was 7 metabolic equivalents. At rest there were no ST or T wave changes noted to suggest ischemia and at peak exercise upsloping ST changes only were noted which did not meet the criteria for ischemia. During recovery there were ST changes noted in lead V1 and V2 only without any reciprocal changes. No clinical angina was noted the test was terminated due to the target heart rate being achieved/fatigue. The patient became mildly presyncopal post exercise. The peak blood pressure was 218/82 mmHg. Rate-pressure product was 28,100. Myocardial perfusion protocol. 12.0 mCi of technetium 99m sestamibi was injected at rest. The patient exercised according to regular Gilmer protocol for total duration of 4 minutes and at peak exercise 34.7 mCi of technetium 99m sestamibi was injected stress images were obtained stress and rest images were reconstructed in comparing the short axis vertical long and horizontal long axis. Gated images were also obtained. Perfusion SPECT analysis: Review of the stress images demonstrate normal uptake of tracer noted in all areas of the myocardium. The resting images similarly demonstrate normal uptake of tracer noted in all areas of the myocardium. No areas of reversibility are noted to suggest ischemia no previous infarct was noted. Gated SPECT analysis: The gated ejection fraction is 60%. Conclusion: Normal exercise myocardial perfusion stress test at a moderate workload EKG changes noted in lead V1 and V2 concerning for ischemia Preserved ejection fraction. Assessment and Plan Assessment and Plan (1) Syncope: Status: Acute Qualifiers: Syncope type: unspecified Qualified Code(s): R55 - Syncope and collapse Plan: Resented to the emergency room with a near syncopal episode. The etiology was not apparent. Her stress test from 09/05/2023 demonstrated a normal exercise myocardial perfusion stress test at a moderate workload with EKG changes noted in lead V1 and V2 concerning for ischemia. Will proceed with a cardiac catheterization to further assess this. Depending on results, further recommendations will be made. (2) Abnormal Stress Test Patients stress test from 09/05/2023 demonstrated a normal exercise myocardial perfusion stress test at a moderate workload with EKG changes noted in lead V1 and V2 concerning for ischemia. Will proceed with a cardiac catheterization to further assess this. Depending on results, further recommendations will be made.
--- NOTE | 2023-09-14 09:22 | CL.D_ITS ---
Patient Name: BURT FERNANDEZ Study Date: 09/14/2023 Performing: Rich Thapa MD Ht: 63 inches 160.02 cm : 1945 Wt: lbs kg Age: 78 Gender: female BSA: PROCEDURE(S) PERFORMED DC02-([id number])LHC/COR CLINICAL PROFILE AND INDICATIONS Heart Failure: None CONCLUSIONS Non obstructive coronary arteries Normal LV size, wall motion,and systolic function RECOMMENDATIONS Medical therapy DESCRIPTION OF PROCEDURE The patient arrived to the procedure lab. The risks and benefits of the procedure as well as a full description of our services here and current unavailability of surgical backup were fully explained to the patient and/or their significant other prior to the catheterization. The Timeout was completed, verifying the correct patient and procedure. The patient's procedural site was prepped and draped in the usual fashion. Local anesthetic was given subcutaneously to right radial region with Lidocaine 2%. Using a modified Seldinger technique, arterial access was obtained via the right radial artery, a 6Fr sheath was inserted. Left Coronary Artery selective angiography was performed in multiple views using a 5 Fr. 4.0 [place] catheter. Right Coronary Artery selective angiography was then performed in multiple views using a 5 Fr. JR 5 catheter.The arterial sheath was pulled and a TR Band was applied for hemostasis CORONARY ANGIOGRAPHY DOMINANCE: Right Dominant LEFT HEART ASSESSMENT Left Ventricular Ejection Fraction: by LV Gram 56 % Normal LV wall motion Normal Left Ventricular systolic function LEFT MAIN: Angiographically normal LEFT ANTERIOR DESCENDING ARTERY: No significant disease noted CIRCUMFLEX ARTERY: Mild luminal irregularities OM 1: Proximal - Moderate luminal irregularities up to 50% RIGHT CORONARY ARTERY: No significant disease noted COMPLICATIONS No Complications PROCEDURE MEDICATIONS Fentanyl 50 mcg IV Versed 1 mg IV Versed 1 mg IV Oxygen: 2 L/min via nasal cannula Heparin given IA 09/14/2023 08:58:44 Verapamil 2.5mg, Ntg 100mcgs, 3000 units of Heparin given IA 09/14/2023 08:58:44 SUMMARY OF HEMODYNAMIC DATA Time AIR REST ECG 07:16:13 AO 128/57 (84) SA 09:00:21 AO 131/61 (88) 09:01:59 Signed By Rich Thapa MD On 09/14/2023 09:21:47 Rich Thapa MD
== END 2023-09-14 10:45 | disposition home or self-care (01) ==
LOC: CLSP 06:48
PROVIDERS: Nurse Practitioner Family; PCP Internal Medicine; Referring Provider Internal Medicine Cardiovascular Disease; Visit Provider Internal Medicine Cardiovascular Disease
DX: R94.39 Abnormal result of other cardiovascular function study (principal); R55 Syncope and collapse; I10 Essential (primary) hypertension; Z82.49 Family history of ischemic heart disease and other diseases of the circulatory system; E03.9 Hypothyroidism, unspecified
CPT/HCPCS: 36415; 71046; 80048; 85025; 85610; 85730; 93454; 99152; 99153; J7040; Q9967; C1769; C1894

== ENCOUNTER 2024-12-03 01:54 | Observation (INO) | payer MEDICARE, BC, SELFPAY ==
[2024-12-03] VITALS (12 sets, daily range): BP systolic 146–207; BP diastolic 64–98; PULSE 67–90; RESP 14–20; TEMP 36.4–37; O2SAT 92–100; BMI 34.5; BMI 32.4
--- NOTE | 2024-12-03 02:13 | CT_ITS ---
INDICATION: dizziness dizziness thats not getting better, started tonight, hx of same EXAMINATION: CT BRAIN - CT Head or Brain W/O Contrast Injection TECHNIQUE: Multiple axial images were obtained of the head without intravenous contrast. The protocol utilizes one or more of the following dose reduction techniques: automated exposure control, adjustment of mA and/or kV according to patient size,and/or use of iterative reconstruction technique. IV Contrast dosage and agent: None. RADIATION DOSAGE (If Supplied By Facility): CTDIvol = ( 44.99 ) mGy, DLP = ( 880.47 ) mGycm COMPARISON: Prior study dated: 07/01/2023 FINDINGS: BRAIN: No acute bleed. No edema. Mild decreased attenuation in the periventricular white matter bilaterally. Zamora-white matter differentiation is maintained. Arterial calcifications. VENTRICLES AND SULCI: The ventricles are not dilated. The sulci are prominent. EXTRA-AXIAL: No hemorrhage, fluid collection, or mass. CALVARIUM / SKULL BASE: Unremarkable. FACE/SINUSES: Minimal mucosal thickening in the left maxillary sinus. SOFT TISSUES: Unremarkable. CT/Brain/Head without Contrast IMPRESSION: No acute abnormality. Mild chronic microvascular ischemic disease. CT angiogram and/or MRI may be helpful to evaluate for acute infarct as clinically indicated. Electronically Signed: Dayna Rodriguez MD at 4:03 EST ,
--- NOTE | 2024-12-03 02:24 | EDS_ITS ---
HPI History of Present Illness Chief Complaint: Dizziness Informant: patient, spouse/S.O. and EMS Narrative Narrative: Patient is an 79-year-old female with past medical history of hypertension and hypothyroidism. She states she went to bed normally and then awoke roughly an hour prior to arrival to use the restroom. She states when she stood up to go to the bathroom she felt dizzy which she described as a lightheaded near syncopal event. She states that she rested and it seemed to improve when she sat up the same symptoms occurred and therefore EMS was called to bring her in for evaluation. [facility] Medical History Hypothyroidism Syncope Diverticulosis SCC (squamous cell carcinoma) Osteoarthritis Obesity Migraine Essential hypertension Overactive bladder Home Medications ?Medication ?Instructions ?Recorded ?Last Taken ?Type levothyroxine 25 mcg tablet 25 mcg PO DAILY 07/01/23 09/14/23 History lisinopril 10 mg tablet 10 mg PO DAILY #30 tabs 07/01/23 09/14/23 Rx tolterodine 2 mg tablet 2 mg PO DAILY 07/01/23 Unknown History verapamil 240 mg tablet,extended 240 mg PO DAILY 07/01/23 09/14/23 History release aspirin 81 mg tablet,delayed 81 mg PO DAILY 07/17/23 09/14/23 History release (Adult Low Dose Aspirin) cholecalciferol (vitamin D3) 50 4,000 unit PO DAILY 07/17/23 Unknown History mcg (2,000 unit) tablet cranberry 400 mg capsule 400 mg PO DAILY 07/17/23 Unknown History atorvastatin 20 mg tablet (Lipitor) 20 mg PO .daily #90 tabs 09/14/23 Unknown Rx Allergy/AdvReac Type Severity Reaction Status Date / Time omeprazole Allergy Unknown unknown Verified 12/03/24 01:59 Sulfa (Sulfonamide Allergy Unknown PT UNSURE Verified 12/03/24 01:59 Antibiotics) OF REACTION Family History Sister CAD (coronary artery disease) Diabetes Brain tumor Brother Diabetes Heart disease Mother Diabetes Heart disease Father Heart disease Surgical History H/O shoulder replacement History of colonoscopy History of left heart catheterization (04/05/09) History of tubal ligation Hx of tonsillectomy Social History Smoking Status: Never smoker alcohol intake: never substance use type: does not use caffeine: Yes Type: carbonated beverages ROS ROS ED Constitutional Constitutional ED: Denies chills or fever(s) Eyes Eyes: Denies blurry vision or change in vision ENT ENT ED: Denies sore throat Cardiovascular Cardiovascular: Denies chest pain, palpitations or racing heartbeat Respiratory/Chest Respiratory/Chest: Denies cough or dyspnea Gastrointestinal Gastrointestinal: Reports nausea; Denies abdominal pain, diarrhea or vomiting Genitourinary Genitourinary ED: Denies dysuria Musculoskeletal Musculoskeletal: Denies myalgias Integumentary Denies rash Neurologic Neurologic: Reports other Details: Positive dizziness ; Denies headache(s) Hematologic/Lymphatic Hematologic/Lymphatic: Denies easy bleeding or easy bruising EXAM Physical Exam Const Vital Signs: 12/03/24 01:55 12/03/24 01:58 12/03/24 02:13 Temperature 97.9 F 97.9 F Temperature Source Oral Oral Pulse Rate 84 85 Pulse Rate [Lying] 76 Pulse Rate [Sitting (for 1 minute prior to obtaining)] 71 Respiratory Rate 19 H 14 Blood Pressure 185/77 H 185/77 H Blood Pressure [Lying] 169/71 H Blood Pressure [Sitting (for 1 minute prior to obtaining)] 176/91 H Blood Pressure Mean 113 113 Blood Pressure Mean [Lying] 103 Blood Pressure Mean [Sitting (for 1 minute prior to obtaining)] 119 Pulse Ox 99 98 Oxygen Delivery Method Room Air Room Air 12/03/24 03:55 12/03/24 05:00 12/03/24 07:00 Temperature Temperature Source Pulse Rate 82 90 75 Pulse Rate [Lying] Pulse Rate [Sitting (for 1 minute prior to obtaining)] Respiratory Rate 18 18 20 H Blood Pressure 164/89 H 196/98 H Blood Pressure [Lying] Blood Pressure [Sitting (for 1 minute prior to obtaining)] Blood Pressure Mean 114 130 Blood Pressure Mean [Lying] Blood Pressure Mean [Sitting (for 1 minute prior to obtaining)] Pulse Ox 92 95 98 Oxygen Delivery Method Room Air Room Air Room Air 12/03/24 07:11 Temperature Temperature Source Pulse Rate 89 Pulse Rate [Lying] Pulse Rate [Sitting (for 1 minute prior to obtaining)] Respiratory Rate 18 Blood Pressure 168/66 H Blood Pressure [Lying] Blood Pressure [Sitting (for 1 minute prior to obtaining)] Blood Pressure Mean 100 Blood Pressure Mean [Lying] Blood Pressure Mean [Sitting (for 1 minute prior to obtaining)] Pulse Ox 95 Oxygen Delivery Method Room Air Positive well nourished and well developed General Appearance ED: well developed; Negative for pallor HEENT Reports dry mucous membranes HEENT Narrative: Mucous membranes are dry and tacky No tongue or lip swelling no oral lesions no airway edema or compromise Mouth ED: Yes dry mucous membranes Mouth: dry mucous membranes Eyes PERRL and EOMs intact bilaterally General Eye ED: Negative for scleral icterus Neck supple Neck Narrative: No nuchal rigidity or meningeal signs Resp normal respiratory effort and clear to auscultation bilaterally Cardio regular rate and regular rhythm Rate: other Other Details: Heart is regular rate and rhythm with a grade 3 out of 6 systolic murmur There is an occasional ectopic beat noted GI normal to inspection, nondistended, normoactive bowel sounds, non-tender, non- distended and no masses GI Narrative: No voluntary guarding or rigidity or pulsatile mass Auscultation: normoactive bowel sounds Palpation: soft Extremity normal to inspection Neuro oriented x3, CN's II-XII intact bilaterally and no sensory deficits noted Neuro Narrative: Cranial nerves II through XII are grossly intact without focal neurologic deficit No pronator drift no dysmetria no truncal ataxia There is slight/mild horizontal nystagmus noted. Positive Hallpike Grace exam Sensorium / Orientation: alert Motor Exam: strength 5/5 throughout Psych mental status grossly normal Skin no rashes or lesions noted and No skin turgor normal Skin Narrative: Skin turgor is increased General Skin Exam: Negative for jaundice or pallor MDM MDM MDM Narrative Medical decision making narrative: Patient arrived to the ER hypertensive but has a past medical history of this and otherwise vitals are stable. She reported dizziness more as a lightheaded/near syncopal event but states it only occurred when she sat up or had change in position. History and exam is most consistent with benign paroxysmal positional vertigo versus orthostasis. However there is potential that patient could have a brain bleed or mass as her cause. There is also potential for UTI causing the lightheaded sensation acute blood loss anemia acute kidney injury or severe electrolyte abnormality. The patient's noncontrast head CT revealed no bleed or mass. Lab work showed no clinically significant findings going against acute anemia GLEN or electrolyte problems. The patient was given 1 L of fluid to correct her dehydration by physical exam and was also given 2 mg of oral Valium as symptoms were most consistent with vertigo. Despite the IV rehydration and oral vertigo when patient sat up she had return of dizziness and therefore in order to ensure she does not have a posterior circulation issue/vertebral basilar insufficiency a CTA of the head and neck was obtained. While this was pending the patient was given further treatment with another dose of Valium and a scopolamine patch. While awaiting for the results of the CTA the patient began complaining of abdominal pain. I reevaluated the patient at this time and on physical exam there is now organomegaly/a mass in the lower mid abdomen/suprapubic region consistent with a distended bladder. Therefore a Ryder catheter was placed and the bladder was drained. On reevaluation the patient's pain has resolved and the organomegaly/mass has resolved as well indicating resolution of her urinary retention After decompressing the patient's bladder she reported feeling better overall and even reported improvement of her dizziness. The CTA revealed no signs of posterior circulation occlusion. We therefore attempted to ambulate the patient in the ER and despite bladder decompression scopolamine patch and 2 doses of Valium the patient still reported dizziness with ambulation and could not do so. Therefore the hospitalist was contacted and they agreed accept the patient for further monitoring History & Record Review Discussion w/independent historian: EMS personnel, Patient and Significant other Lab Data Attestation: I reviewed the patient's lab results. Labs: Laboratory Results - last 24 hr 12/03/24 12/03/24 01:40 05:02 WBC 7.8 RBC 4.43 Hgb 13.9 Hct 41.4 MCV 93.5 MCH 31.4 MCHC 33.6 RDW Std Deviation 45.1 H RDW Coeff of Deepika 13.2 Plt Count 252 MPV 10.0 Immature Gran % (Auto) 0.100 Neut % (Auto) 36.1 L Lymph % (Auto) 54.0 H [place] % (Auto) 6.9 Eos % (Auto) 2.4 Baso % (Auto) 0.5 Absolute Neuts (auto) 2.8 Absolute Lymphs (auto) 4.22 Nucleated RBC % 0 Sodium 140 Potassium 4.0 Chloride 106 Carbon Dioxide 28.0 Anion Gap 6 BUN 22 H Creatinine 0.96 Estim Creat Clear Calc 48.50 Est GFR (MDRD) Af Amer 71 Est GFR (MDRD) Non-Af 59 L BUN/Creatinine Ratio 22.8 H Glucose 138 H Calcium 9.3 Magnesium 2.1 Urine Color Yellow Urine Clarity Clear Urine pH 7.0 Ur Specific [place] 1.010 Urine Protein Negative Urine Glucose (UA) Normal Urine Ketones Negative Urine Occult Blood 50 H Urine Nitrite Negative Urine Bilirubin Negative Urine Urobilinogen Normal Ur Leukocyte Esterase Negative Urine RBC 0-5 SEEN Urine WBC 0 SEEN Ur Squamous Epith Cells 0 SEEN Urine Bacteria 0 SEEN Urine Mucus 0 SEEN Radiography Diagnostic Testing: Clinical Impression(s) from Imaging Studies Brain CT 12/03/24 02:13 IMPRESSION: No acute abnormality. Mild chronic microvascular ischemic disease. CT angiogram and/or MRI may be helpful to evaluate for acute infarct as clinically indicated. Electronically Signed: Dayna Rodriguez MD at 4:03 EST , Head/Neck CTA 12/03/24 03:45 IMPRESSION: Mild to moderate atherosclerosis with 50% stenosis at the origin of the left ICA and right vertebral artery. No significant stenosis of the right carotid or left vertebral arteries. Negative CT Brain, and CTA Brain. Electronically Signed: Ari Torres MD at 6:13 EST , Management Discussion w/another healthcare provider: Hospitalist Discharge Plan Dx/Rx/DC Orders Clinical Impression: Acute urinary retention, Vertigo, Essential hypertension, Hypothyroidism Disposition Disposition: [facility]
[2024-12-03 02:30] LABS: Absolute Lymphocyte Count 4.22 X10^3/uL (0.83-4.51); Absolute Neutrophil Count 2.8 X10^3/uL (2.0-7.7); Basophil# 0.04 X10^3/uL; Basophil% 0.5 % (0-1); Eosinophil# 0.19 X10^3/uL; Eosinophils% 2.4 % (0-5); Hematocrit 41.4 % (37-47); Hemoglobin 13.9 g/dL (12.0-15.0); Lymphocyte # 4.22 X10^3/ul (0.83-4.51); Mean Corp Hgb Conc 33.6 g/dL (32-36); Mean Corpuscular Hgb 31.4 pg (27.0-32.0); Mean Corpuscular Volume 93.5 fL (81-99); Monocyte# 0.54 X10^3/uL; Monocyte% 6.9 % (0-10); NRBC Flagged by Analyzer 0 % (0-5); Neutrophil # 2.81 X10^3/uL (2.7-7.7); Neutrophil % 36.1 % (47-70); Platelet Count 252 K/mm3 (150-450); RBC Distribution Width CV 13.2 % (11.6-14.6); RBC Distribution Width SD 45.1 fl (35.1-43.9); Red Blood Count 4.43 M/mm3 (4.2-5.4); White Blood Count 7.8 K/mm3 (4.4-11.0)
[2024-12-03] MEDS: Ondansetron 4 MG/2 ML Vial IV (02:33)
[2024-12-03] MEDS: diazePAM 2 MG Tablet PO ×2 (02:33→04:05)
[2024-12-03] MEDS: 0.9% Normal Saline (1000mL) 1,000 ML 999 ML IV (02:33)
[2024-12-03 02:47] LABS: Anion Gap 6 (5-15); BUN 22 mg/dL (7-18); BUN/Creat Ratio 22.8 RATIO (10-20); Calcium,Total 9.3 mg/dL (8.5-10.1); Chloride 106 mmol/L (98-107); Creatinine, Serum 0.96 mg/dL (0.55-1.02); EST Glomerular Filtration Rate 59 mL/min (>60); Est Glom Filt Rate - Afr Amer 71 mL/min (>60); Glucose 138 mg/dL (74-106); Magnesium 2.1 mg/dL (1.6-2.6); Sodium Level 140 mmol/L (136-145)
--- NOTE | 2024-12-03 03:45 | CT_ITS ---
INDICATION: Intractable dizziness EXAMINATION: CT BRAIN WITHOUT CONTRAST, CTA HEAD, AND CTA NECK TECHNIQUE: Noncontrast axial images were obtained of the brain. Subsequently, routine carotid CT angiogram protocol was performed without and with IV contrast. In addition, images were obtained of the [place]. NASCET criteria using the distal ICAs for comparison were used for evaluation of stenoses. 3D reconstructions were reviewed. The protocol utilizes one or more of the following dose reduction techniques: automated exposure control, adjustment of mA and/or kV according to patient size,and/or use of iterative reconstruction technique. IV Contrast dosage and agent: IV 100mL [id number] COMPARISON: No relevant prior comparison study available FINDINGS: --CT BRAIN WITHOUT CONTRAST: BRAIN PARENCHYMA: No intra- or extra-axial hemorrhage. No evidence of acute infarct. No intracranial mass or mass effect. There is preservation of the lombardi/white matter interface. Posterior fossa structures are unremarkable. CSF SPACES: Appropriate for age. No hydrocephalus. Basal cisterns are patent. CALVARIUM, SKULL BASE, PARANASAL SINUSES AND MASTOID AIR CELLS: Clear. No discrete lytic or blastic abnormalities. ASPECTS Score for Acute Strokes: 10 --CTA NECK: AORTIC ARCH AND BRANCHES: Normal anatomy, patent. RIGHT CCA: No occlusion, significant stenosis or dissection. RIGHT ICA: Moderate atherosclerosis of the carotid bulb. 20% stenosis at the origin of the right ICA. LEFT CCA: No occlusion, significant stenosis or dissection. LEFT ICA: Moderate atherosclerosis of the carotid bulb. 50% stenosis at the origin of the right ICA. RIGHT VERTEBRAL ARTERY: Mild atherosclerosis at the origin of the right vertebral artery with 50% stenosis at the origin. LEFT VERTEBRAL ARTERY: Mild atherosclerosis at the origin of the left vertebral artery without significant stenosis or dissection. NECK SOFT TISSUES: Unremarkable. --CTA HEAD: --Anterior circulation: ICAs: No significant stenosis at the intracranial/visualized segments. ACAs: No significant stenosis at the visualized segments. ACOM: Present. MCAs: No significant stenosis at the visualized segments. --Posterior circulation: waitangi tribunal member: No significant stenosis at the visualized segments. BASILAR ARTERY: No significant stenosis. VERTEBRAL ARTERIES: No significant stenosis at the intradural/visualized segments. No evidence of intracranial aneurysm or vascular malformation. CT/CTA Head AND Neck W/ Contrast IMPRESSION: Mild to moderate atherosclerosis with 50% stenosis at the origin of the left ICA and right vertebral artery. No significant stenosis of the right carotid or left vertebral arteries. Negative CT Brain, and CTA Brain. Electronically Signed: Ari Torres MD at 6:13 EST ,
[2024-12-03] MEDS: Scopolamine 1mg/72hr Patch 1 PATCH TD (04:05)
[2024-12-03] MEDS: Ketorolac 15 MG/ML Vial IV (04:40)
[2024-12-03 05:12] LABS: Bacteria 0 SEEN /hpf (None Seen); Mucous, Urine 0 SEEN /hpf (<or=2+); Squamous Epithelial Cells - UA 0 SEEN /hpf (5-10); White Blood Cells 0 SEEN /hpf (0-5)
[2024-12-03 05:15] LABS: Color, Urine Yellow (Yellow); Glucose, Dipstick Normal (Normal); Ketone-Dipstick Negative (Negative); Leukocyte Esterase-Dipstick Negative /ul (Negative); Nitrite-Dipstick Negative (Negative); Occult Blood-Urine 50 /ul (Negative); Protein-Dipstick Negative (Negative); Urine Bilirubin Dipstick Negative (Negative); Urine Clarity Clear (Clear); Urine Urobilinogen Normal (Normal)
[2024-12-03 05:26] LABS: Red Blood Cells-Urine 0-5 SEEN /hpf (0-5)
--- NOTE | 2024-12-03 08:08 | MRI_ITS ---
STUDY: MRI BRAIN WITHOUT CONTRAST REASON FOR EXAM: Female, 79 years old. dizziness TECHNIQUE: Standardized multiplanar fat and water weighted pulse sequences were obtained. COMPARISON: Head CT dated December 03, 2024. FINDINGS: Normal size of the ventricles and extra-axial spaces for the patient''s age. There are multiple white matter hyperintensities, distributed throughout the deep white matter tracts of the cerebral hemispheres, consistent with moderate chronic white matter ischemic changes. There is no evidence for recent intracranial ischemia or other cause of cytotoxic edema on diffusion weighted imaging (DWI). Normal T2* images of the brain without demonstrated susceptibility artifact. There is no demonstrated hemosiderin stain. There are no demyelinating plagues of the supratentorial brain, brainstem or cerebellum. There are no findings suspicious for multiple sclerosis (MS). Normal bilateral basal ganglia. Normal thalami. There is no extra-axial fluid accumulation. Normal flow voids within the major intracranial circulation suggesting patency by spin echo criteria. Normal sella turcica, pituitary gland, infundibular stalk, optic chiasm and hypothalamus. Normal tectal plate and pineal gland. Normal midbrain, maryse and medulla. Normal cerebellum. Normal basal cisterns. Normal bilateral temporal bones. Normal bilateral internal auditory canals. No demonstrated orbital abnormality, within the constraints of a routine brain study. Normal visualized paranasal sinuses. Normal calvarium and skull base. Normal visualized soft tissue structures. Normal visualized upper cervical spine. MRI/Brain without Contrast IMPRESSION: 1. Involutional changes of the brain, as described above. Electronically Signed: Rayo Nixon MD at 15:32 EST ,
[2024-12-03] MEDS: 0.9% Normal Saline (1000mL) 1,000 ML 100 ML IV (09:35)
[2024-12-03] MEDS: Verapamil SR 240 MG Tablet PO (09:52)
[2024-12-03] MEDS: Levothyroxine 25 MCG TABLET PO (09:52)
[2024-12-03] MEDS: Lisinopril 10 MG Tablet PO (09:52)
[2024-12-03] MEDS: Aspirin E.C. 81 MG Tablet PO (09:52)
--- NOTE | 2024-12-03 19:20 | HP.PCM.HOS_ITS ---
HPI - General General Date of Admission: 12/03/24 HPI Narrative BURT FERNANDEZ, is a 79 F who presents to the hospital with dizziness and vertigo. She has had episodes in the past of near syncope and syncope usually whenever she gets hot. Today she woke up at around 1 AM and had significant dizziness and trouble walking. She presented to the hospital and was felt to be vertigo but she had difficulty ambulating on her own and did not feel safe going home so she was admitted. MRI did not demonstrate a stroke or tumor and she denies any upper respiratory infections to indicate M?ni?re's or labyrinthitis. She does not have a visual nystagmus but she also had an episode of urinary retention that while in the ER led to abdominal pain and necessitating a Ryder being placed. She is on few medications but one of the medications she is on is tolterodine which can lead to urinary retention as well as dizziness and vertigo given its anticholinergic effects, she also has a head tremor which started around the time of this medication being prescribed therefore I discussed with family present this will be discontinued on discharge. At the time of my evaluation she feels that her dizziness is much improved and almost resolved however she did not feel comfortable going home after admission so we will evaluate overnight. [facility] Medical History Hypothyroidism Syncope Diverticulosis SCC (squamous cell carcinoma) Osteoarthritis Obesity Migraine Essential hypertension Overactive bladder Home Medications ?Medication ?Instructions ?Recorded ?Last Taken ?Type levothyroxine 25 mcg tablet 25 mcg PO DAILY 07/01/23 12/02/24 History lisinopril 10 mg tablet 10 mg PO DAILY #30 tabs 07/01/23 12/02/24 Rx tolterodine 2 mg tablet 2 mg PO DAILY 07/01/23 Unknown History verapamil 240 mg tablet,extended 240 mg PO DAILY 07/01/23 12/02/24 History release aspirin 81 mg tablet,delayed 81 mg PO DAILY 07/17/23 12/02/24 History release (Adult Low Dose Aspirin) cholecalciferol (vitamin D3) 50 4,000 unit PO DAILY 07/17/23 12/02/24 History mcg (2,000 unit) tablet cranberry 400 mg capsule 400 mg PO DAILY 07/17/23 12/02/24 History atorvastatin 20 mg tablet (Lipitor) 20 mg PO .daily #90 tabs 09/14/23 12/02/24 Rx Allergy/AdvReac Type Severity Reaction Status Date / Time omeprazole Allergy Unknown unknown Verified 12/03/24 01:59 Sulfa (Sulfonamide Allergy Unknown PT UNSURE Verified 12/03/24 01:59 Antibiotics) OF REACTION Family History Sister CAD (coronary artery disease) Diabetes Brain tumor Brother Diabetes Heart disease Mother Diabetes Heart disease Father Heart disease Surgical History H/O shoulder replacement History of colonoscopy History of left heart catheterization (04/05/09) History of tubal ligation Hx of tonsillectomy Social History Smoking Status: Never smoker alcohol intake: never substance use type: does not use caffeine: Yes Type: carbonated beverages ROS Constitutional Constitutional: Denies chills, fatigue, fever(s) or malaise Eyes Eyes: Denies blurry vision ENT HEENT: Denies headache(s) or nasal discharge Cardiovascular Cardiovascular: Denies chest pain, dyspnea on exertion or syncope Respiratory/Chest Respiratory/Chest: Denies cough, shortness of breath at rest or shortness of breath with exertion Gastrointestinal Gastrointestinal: Denies constipation, diarrhea, nausea or vomiting Genitourinary Genitourinary: Denies dysuria Neurologic Neurologic: Reports disequilibrium, dizziness, vertigo and other Details: Head tremor ; Denies focal weakness, numbness or tremor(s) Psychiatric Psychiatric: Denies anxiety or depression Vital Signs Vital Signs Vital Signs: 12/03/24 01:55 12/03/24 01:58 12/03/24 02:13 Temperature 97.9 F 97.9 F Temperature Source Oral Oral Pulse Rate 84 85 Pulse Rate [Lying] 76 Pulse Rate [Sitting (for 1 minute prior to obtaining)] 71 Pulse Strength Respiratory Rate 19 H 14 Blood Pressure 185/77 H 185/77 H Blood Pressure [Lying] 169/71 H Blood Pressure [Sitting (for 1 minute prior to obtaining)] 176/91 H Blood Pressure Mean 113 113 Blood Pressure Mean [Lying] 103 Blood Pressure Mean [Sitting (for 1 minute prior to obtaining)] 119 Blood Pressure Source Blood Pressure Position Blood Pressure Location Pulse Ox 99 98 Oxygen Delivery Method Room Air Room Air 12/03/24 03:55 12/03/24 05:00 12/03/24 07:00 Temperature Temperature Source Pulse Rate 82 90 75 Pulse Rate [Lying] Pulse Rate [Sitting (for 1 minute prior to obtaining)] Pulse Strength Respiratory Rate 18 18 20 H Blood Pressure 164/89 H 196/98 H Blood Pressure [Lying] Blood Pressure [Sitting (for 1 minute prior to obtaining)] Blood Pressure Mean 114 130 Blood Pressure Mean [Lying] Blood Pressure Mean [Sitting (for 1 minute prior to obtaining)] Blood Pressure Source Blood Pressure Position Blood Pressure Location Pulse Ox 92 95 98 Oxygen Delivery Method Room Air Room Air Room Air 12/03/24 07:11 12/03/24 08:19 12/03/24 09:32 Temperature 98.0 F 97.6 F L Temperature Source Oral Pulse Rate 89 79 81 Pulse Rate [Lying] Pulse Rate [Sitting (for 1 minute prior to obtaining)] Pulse Strength Respiratory Rate 18 16 18 Blood Pressure 168/66 H 168/66 H 207/79 H Blood Pressure [Lying] Blood Pressure [Sitting (for 1 minute prior to obtaining)] Blood Pressure Mean 100 100 121 Blood Pressure Mean [Lying] Blood Pressure Mean [Sitting (for 1 minute prior to obtaining)] Blood Pressure Source Monitor Blood Pressure Position Semi-Fowlers Blood Pressure Location Left Arm Pulse Ox 95 100 98 Oxygen Delivery Method Room Air Room Air 12/03/24 09:45 12/03/24 10:00 12/03/24 11:03 Temperature Temperature Source Pulse Rate 83 Pulse Rate [Lying] Pulse Rate [Sitting (for 1 minute prior to obtaining)] Pulse Strength Normal (2+) Respiratory Rate Blood Pressure 183/76 H Blood Pressure [Lying] Blood Pressure [Sitting (for 1 minute prior to obtaining)] Blood Pressure Mean 111 Blood Pressure Mean [Lying] Blood Pressure Mean [Sitting (for 1 minute prior to obtaining)] Blood Pressure Source Monitor Blood Pressure Position Semi-Fowlers Blood Pressure Location Right Arm Pulse Ox Oxygen Delivery Method Room Air 12/03/24 15:25 Temperature 98.6 F Temperature Source Oral Pulse Rate 75 Pulse Rate [Lying] Pulse Rate [Sitting (for 1 minute prior to obtaining)] Pulse Strength Respiratory Rate 18 Blood Pressure 148/70 H Blood Pressure [Lying] Blood Pressure [Sitting (for 1 minute prior to obtaining)] Blood Pressure Mean 96 Blood Pressure Mean [Lying] Blood Pressure Mean [Sitting (for 1 minute prior to obtaining)] Blood Pressure Source Monitor Blood Pressure Position Semi-Fowlers Blood Pressure Location Left Arm Pulse Ox 95 Oxygen Delivery Method Room Air Weight Weight: 182 lb 15.739 oz Body Mass Index (BMI) 32.4 Physical Exam Narrative General: Alert, Oriented x3, Cooperative, No apparent distress HEENT: Atraumatic, PERRLA, EOMI, Normocephalic, no nystagmus Oral: Moist Mucosa Neck: Supple, No JVD Lungs: Diminished, Normal air movement, No rhonchi, No wheeze, No rales Cardiovascular: Regular rate, Regular Rhythm, Normal S1, Normal S2, No murmurs Abdomen: Soft, Non Tender, Non-Distended, No Hepato-splenomegaly Extremities: No edema, Capillary Refill Less than 3 Seconds Skin: No rashes, No breakdown Musculoskeletal: No Tenderness to Palpation of Joints or Extremities Neurological: No focal neurological deficits, Motor Exam 5/5 strength throughout, Sensory exam intact to light touch and pain, no ataxia Psych/Mental Status: Normal Affect, Appropriate Results Lab / Micro Data 12/03/24 01:40 12/03/24 01:40 Labs: Laboratory Results - last 24 hr 12/03/24 01:40: WBC 7.8, RBC 4.43, Hgb 13.9, Hct 41.4, MCV 93.5, MCH 31.4, MCHC 33.6, RDW Std Deviation 45.1 H, RDW Coeff of Deepika 13.2, Plt Count 252, MPV 10.0, Immature Gran % (Auto) 0.100, Neut % (Auto) 36.1 L, Lymph % (Auto) 54.0 H, [place] % (Auto) 6.9, Eos % (Auto) 2.4, Baso % (Auto) 0.5, Absolute Neuts (auto) 2.8, Absolute Lymphs (auto) 4.22, Nucleated RBC % 0, Sodium 140, Potassium 4.0, Chloride 106, Carbon Dioxide 28.0, Anion Gap 6, BUN 22 H, Creatinine 0.96, Estim Creat Clear Calc 48.50, Est GFR (MDRD) Af Amer 71, Est GFR (MDRD) Non-Af 59 L, B UN/Creatinine Ratio 22.8 H, Glucose 138 H, Calcium 9.3, Magnesium 2.1 12/03/24 05:02: Urine Color Yellow, Urine Clarity Clear, Urine pH 7.0, Ur Specific [place] 1.010, Urine Protein Negative, Urine Glucose (UA) Normal, Urine Ketones Negative, Urine Occult Blood 50 H, Urine Nitrite Negative, Urine Bilirubin Negative, Urine Urobilinogen Normal, Ur Leukocyte Esterase Negative, Urine RBC 0-5 SEEN, Urine WBC 0 SEEN, Ur Squamous Epith Cells 0 SEEN, Urine Bacteria 0 SEEN, Urine Mucus 0 SEEN Imaging Radiology Impression Brain CT 12/03/24 02:13 IMPRESSION: No acute abnormality. Mild chronic microvascular ischemic disease. CT angiogram and/or MRI may be helpful to evaluate for acute infarct as clinically indicated. Electronically Signed: Dayna Rodriguez MD at 4:03 EST , Head/Neck CTA 12/03/24 03:45 IMPRESSION: Mild to moderate atherosclerosis with 50% stenosis at the origin of the left ICA and right vertebral artery. No significant stenosis of the right carotid or left vertebral arteries. Negative CT Brain, and CTA Brain. Electronically Signed: Ari Torres MD at 6:13 EST , Brain MRI 12/03/24 08:08 IMPRESSION: 1. Involutional changes of the brain, as described above. Electronically Signed: Rayo Nixon MD at 15:32 EST , Assessment & Plan Assessment/Plan (1) Vertigo: (2) Acute urinary retention: PLAN: Plan 1. Dizziness/vertigo ? Discontinue her tolterodine ? Will monitor and evaluate for discharge in the morning ? Will remove the Ryder in the morning and see if she is able to urinate on her own with no significant postvoid residual otherwise we will have to reinsert the Ryder and potentially have her follow-up with urology on discharge ? Can resume her other medications ? Continue with IV fluids ? She did receive multiple doses of Valium in the ER which we will discontinue on admission ? UA is negative for UTI 2. Essential HTN ? Will resume her home blood pressure medications ? Will monitor make adjustments as necessary 3. Hypothyroidism ? Stable ? Will recheck a TSH ? Will resume her Synthroid DVT: Ambulation 75 minutes was spent on direct patient care, including documentation as well as chart review and collaboration with colleagues Charges/Coding Visit Charges Inpatient E&M: 02135 Init Hosp L3
[2024-12-03] MEDS: Atorvastatin Calcium 20 MG Tablet PO (20:17)
[2024-12-04 02:20] VITALS: BP 106/71; PULSE 69; RESP 16; TEMP 36.6; O2SAT 94
[2024-12-04] MEDS: Levothyroxine 25 MCG TABLET PO (06:29)
[2024-12-04 08:01] VITALS: BP 187/72; PULSE 72; RESP 11; TEMP 36.6; O2SAT 95
[2024-12-04] MEDS: Verapamil SR 240 MG Tablet PO (08:05)
[2024-12-04] MEDS: Aspirin E.C. 81 MG Tablet PO (08:05)
[2024-12-04] MEDS: Lisinopril 10 MG Tablet PO (08:05)
--- NOTE | 2024-12-04 09:43 | CASEMGMT ---
Met with patient and her to complete VICENTE form. VICENTE form explained to both who voiced understanding and signed form. Original form placed in pt?s chart and copy provided to patient. Marisabel Hicks, Discharge Planning Asst
--- NOTE | 2024-12-04 11:13 | PCM.DC ---
Discharge Instructions Diet Discharge Diet: Low fat / Low cholesterol DC O2, CPAP, BIPAP needs Home O2 Discharge instructions: No Dressing / Incision Discharge Activity: Return to Normal Activity Dressing / Incision Call your doctor if you observe: Fever of 101 or Higher, Shortness of breath, Dizziness, Fainting spells, Swelling in the ankles, Chest pain and Increased palpitations (irregular heartbeat) Follow Up Care Test Results: Test results from this visit will be discussed in further detail at your follow-up appointment, if applicable. Discharge Plan Admission Admit Date/Time: 12/03/24 08:09 Attending Provider: Armin Georges Primary Care Provider: Heather Desouza Instructions Patient Instructions: ED Ryder Catheter, Care, ED Urinary Retention, Female, ED Vertigo, Unspecified Additional Instructions / Restrictions: If you develop abdominal pain from urinary retention please return to the ER to have a Ryder placed, you would not need to be readmitted to the hospital. Discharge Orders/Prescriptions Prescriptions: Continued aspirin [Adult Low Dose Aspirin] 81 mg tablet,delayed release (DR/EC) 81 mg PO DAILY cholecalciferol (vitamin D3) 50 mcg (2,000 unit) tablet 4,000 unit PO DAILY cranberry 400 mg capsule 400 mg PO DAILY Rx Instructions: administer with a meal verapamil 240 mg tablet extended release 240 mg PO DAILY Patient Comments: TAKE 1 TABLET BY MOUTH EVERY DAY levothyroxine 25 mcg tablet 25 mcg PO DAILY Patient Comments: TAKE 1 TABLET BY MOUTH ONCE DAILY. TAKE ON EMPTY STOMACH. FOR THYROID. lisinopril 10 mg tablet 10 mg PO DAILY Qty: 30 0RF atorvastatin [Lipitor] 20 mg tablet 20 mg PO .daily Qty: 90 3RF Discontinued tolterodine 2 mg tablet 2 mg PO DAILY Referrals / Follow Up: Wan Malagon MD [Med Staff - Active Staff] - Heather Desouza MD [Primary Care Provider] - Disposition Disposition (needs filled in before D/C Order can be placed): Home, Self Care
--- NOTE | 2024-12-04 11:56 | PCM.DC.SUM ---
Providers Date of Admission: 12/03/24 Primary Care Physician: Dr. Heather Desouza MD Reason For Visit: VERTIGO Diagnosis Discharge Diagnosis (1) Vertigo: Status: Acute Code(s): R42 - Dizziness and giddiness (2) Acute urinary retention: Status: Acute Code(s): R33.8 - Other retention of urine Medications at Discharge Home Medications levothyroxine 25 mcg tablet 25 mcg PO DAILY 07/01/23 lisinopril 10 mg tablet 10 mg PO DAILY #30 tabs 07/01/23 verapamil 240 mg tablet,extended release 240 mg PO DAILY 07/01/23 aspirin 81 mg tablet,delayed release (Adult Low Dose Aspirin) 81 mg PO DAILY 07/17/23 cholecalciferol (vitamin D3) 50 mcg (2,000 unit) tablet 4,000 unit PO DAILY 07/17/23 cranberry 400 mg capsule 400 mg PO DAILY 07/17/23 atorvastatin 20 mg tablet (Lipitor) 20 mg PO .daily #90 tabs 09/14/23 Hospital Course Operations None Procedures None Summary of Care Provided Minutes Spent on Discharge: 33 Hospital Course: Per HPI: BURT FERNANDEZ, is a 79 F who presents to the hospital with dizziness and vertigo. She has had episodes in the past of near syncope and syncope usually whenever she gets hot. Today she woke up at around 1 AM and had significant dizziness and trouble walking. She presented to the hospital and was felt to be vertigo but she had difficulty ambulating on her own and did not feel safe going home so she was admitted. MRI did not demonstrate a stroke or tumor and she denies any upper respiratory infections to indicate M?ni?re's or labyrinthitis. She does not have a visual nystagmus but she also had an episode of urinary retention that while in the ER led to abdominal pain and necessitating a Ryder being placed. She is on few medications but one of the medications she is on is tolterodine which can lead to urinary retention as well as dizziness and vertigo given its anticholinergic effects, she also has a head tremor which started around the time of this medication being prescribed therefore I discussed with family present this will be discontinued on discharge. At the time of my evaluation she feels that her dizziness is much improved and almost resolved however she did not feel comfortable going home after admission so we will evaluate overnight. Hospital Course: 1. Dizziness/vertigo with urinary retention due to medication?79-year-old female present to the hospital with episodes of dizziness and vertigo. She was found to have urinary retention in the ER and had a Ryder placed. MRI and CT of the head and neck were unremarkable, no signs of stroke or significant carotid occlusions. In 2022 she had a cardiac catheterization that was unremarkable and she denies any chest pain. During her stay her dizziness has improved, I discontinued her Ryder and she was able to urinate however she did have some retention with postvoid residuals around 300 cc, I discussed with her the possibility of needing to have the Ryder replaced she would prefer to go home without the Ryder and see if withdrawal of tolterodine would allow her to start urinating in the next 24 to 48 hours more consistently. I discussed with her the need to return to the hospital if she develops significant abdominal pain and difficulty urinating, she would not need to be admitted she would just need to have a Ryder placed, this was expressed to her and her who understand that if she does not have a Ryder placed they can go home after. I discussed with her and her the plan for discharge today they expressed understanding of the risk benefits going home and would like to go home today. I did not make any changes to her medications other than discontinuation of tolterodine. 2. Essential hypertension, hyperlipidemia, hypothyroidism are all chronic medical conditions which complicate her care. Her home medications were continued where appropriate Physical Exam Narrative General: Alert, Oriented x3, Cooperative, No apparent distress HEENT: Atraumatic, PERRLA, EOMI, Normocephalic, no nystagmus Oral: Moist Mucosa Neck: Supple, No JVD Lungs: Diminished, Normal air movement, No rhonchi, No wheeze, No rales Cardiovascular: Regular rate, Regular Rhythm, Normal S1, Normal S2, No murmurs Abdomen: Soft, Non Tender, Non-Distended, No Hepato-splenomegaly Extremities: No edema, Capillary Refill Less than 3 Seconds Skin: No rashes, No breakdown Musculoskeletal: No Tenderness to Palpation of Joints or Extremities Neurological: No focal neurological deficits, Motor Exam 5/5 strength throughout, Sensory exam intact to light touch and pain, no ataxia Psych/Mental Status: Normal Affect, Appropriate Weight / BMI Weight Weight: 182 lb 15.739 oz Body Mass Index (BMI) 32.4 ABG / Lab / Microbiology Data 12/03/24 01:40 12/03/24 01:40 Laboratory: Laboratory Results - last 24 hr 12/03/24 01:40: TSH 7.420 H Radiography Diagnostic Testing: Radiology Impression Brain MRI 12/03/24 08:08 IMPRESSION: 1. Involutional changes of the brain, as described above. Electronically Signed: Rayo Nixon MD at 15:32 EST Reading Location ID and State: [facility] / [place] , Service support , D/C Instructions Discharge Diet: Low fat / Low cholesterol Call your doctor if you observe: Fever of 101 or Higher, Shortness of breath, Dizziness, Fainting spells, Swelling in the ankles, Chest pain and Increased palpitations (irregular heartbeat) DC O2, CPAP, BIPAP Needs Home O2 Discharge instructions: No Meaningful Use Info Meaningful Use Meaningful Use Diagnoses (Choose all that apply): None applicable Ischemic Stroke Statin Dosing Therapy Reference: STATIN DOSE THERAPY REFERENCE: * Patients > 75 years receive moderate or high dose statin therapy. * Patients 75 years or YOUNGER should receive HIGH intensity statin dose unless contraindicated. You will be required to document reason for non-treatment if statin daily dose does not meet guidelines. HIGH DOSE STATIN THERAPY DAILY Atorvastatin > than or = to 40 mg Rosuvastatin > than or = to 20 mg Amlodipine + Atorvastatin > than or = to 2.5/40 mg Ezetimibe + Simvastatin 10/80 mg Simvastatin 80mg Discharge Plan Admission Admit Date/Time: 12/03/24 08:09 Attending Provider: Armin Georges Primary Care Provider: Heather Desouza Instructions Patient Instructions: ED Ryder Catheter, Care, ED Urinary Retention, Female, ED Vertigo, Unspecified Additional Instructions / Restrictions: If you develop abdominal pain from urinary retention please return to the ER to have a Ryder placed, you would not need to be readmitted to the hospital. Discharge Orders/Prescriptions Prescriptions: Continued aspirin [Adult Low Dose Aspirin] 81 mg tablet,delayed release (DR/EC) 81 mg PO DAILY cholecalciferol (vitamin D3) 50 mcg (2,000 unit) tablet 4,000 unit PO DAILY cranberry 400 mg capsule 400 mg PO DAILY Rx Instructions: administer with a meal verapamil 240 mg tablet extended release 240 mg PO DAILY Patient Comments: TAKE 1 TABLET BY MOUTH EVERY DAY levothyroxine 25 mcg tablet 25 mcg PO DAILY Patient Comments: TAKE 1 TABLET BY MOUTH ONCE DAILY. TAKE ON EMPTY STOMACH. FOR THYROID. lisinopril 10 mg tablet 10 mg PO DAILY Qty: 30 0RF atorvastatin [Lipitor] 20 mg tablet 20 mg PO .daily Qty: 90 3RF Discontinued tolterodine 2 mg tablet 2 mg PO DAILY Referrals / Follow Up: Wan Malagon MD [Med Staff - Active Staff] - Heather Desouza MD [Primary Care Provider] - Disposition Disposition (needs filled in before D/C Order can be placed): Home, Self Care Charges/Coding Visit Charges Inpatient E&M: 02952 Disch Hosp >30min
--- NOTE | 2024-12-04 13:10 | CASEMGMT ---
FELICITA YIP NOTE: Pt being discharged home. Pt only able to ambulate 3 ft yesterday w/use of walker and vestibular therapy recommended. RN PHI asked for therapy to work w/pt again today to ensure pt is safe to discharge home. Per therapy, pt did much better today and vestibular therapy is no longer recommended, but they do still recommend OP PT (just not vestibular therapy specifically). RN CM to room. Pt sitting up in chair in room. @ bedside. Pt states she lives w/her in one-story home, independent @ baseline, manages her own medications, and drives. also drives. Pt's PCP is Dr Desouza. Discussed discharge w/pt and . Pt would like to discharge home and states she would like a walker, prefers [employer]. Pt goes to [employer] [facility] 3 x'/week on her own. Made aware of therapy's recommendations for therapy, and states would like a script to work w/a therapist. She and pt deny needing assistance w/scheduling appt, stating they will take care of it. Script obtained from Dr Georges and provided to them. They are aware they can take to any location of choice. A script for walker has also been obtained and sent to [facility] via [facility]. Per Wes, he will be delivering this to pt's room shortly. RN aware. Pt and deny having further discharge needs/concerns. Olga Lidia FREEMAN RN, CM
[2024-12-04 13:50] VITALS: BP 150/70; PULSE 75; TEMP 36.6; O2SAT 96
== END 2024-12-04 14:20 | disposition home or self-care (01) ==
LOC: ED 08:12 → PCU 08:39
PROVIDERS: Admitting Provider Family Medicine; Emergency Provider Emergency Medicine; PCP Internal Medicine; Visit Provider Family Medicine
DX: R42 Dizziness and giddiness (principal); E03.9 Hypothyroidism, unspecified; R10.9 Unspecified abdominal pain; E78.5 Hyperlipidemia, unspecified; Z79.82 Long term (current) use of aspirin; R33.9 Retention of urine, unspecified; I10 Essential (primary) hypertension; R55 Syncope and collapse; Z79.899 Other long term (current) drug therapy; Z79.890 Hormone replacement therapy

== ENCOUNTER 2024-12-10 08:50 | Outpatient (RCR) | payer MEDICARE, BC, SELFPAY | END 2024-12-10 19:00 | disposition home or self-care (01) | LOC: PT 08:50 | PROVIDERS: PCP Internal Medicine; Referring Provider Family Medicine; Visit Provider Family Medicine | DX: R26.89 Other abnormalities of gait and mobility (principal) ==

== ENCOUNTER 2025-10-15 17:42 | Emergency (ER) | payer MEDICARE, BC, SELFPAY ==
[2025-10-15 17:42] VITALS: BP 188/90; PULSE 65; RESP 15; TEMP 36.4; O2SAT 96; BMI 32.8
--- OUTSIDE RECORDS SUMMARY | 2025-10-15 18:20 | XMS RPT_ITS | CCD ---
Author Organization [facility] Care Team Providers Care Band Tacker Name Role Phone Gorge HARRIS Demetria Unavailable Carmela Wisdom MD Primary Care Provider Carmela Wisdom MD Primary Care Provider Carmela Wisdom MD Primary Care Provider Dr. Carmela Wisdom Primary Care Provider Dr. Carmela Wisdom Referring Provider Dr. Rich Thapa Attending Provider Dr. Rich Thapa Referring Provider Dr. Rich Thapa Other Provider Roof OXYGEN EQUIPMENT PREPARER, OXYGEN EQUIPMENT PREPARER-Nicci Chou Attending Provider Roof OXYGEN EQUIPMENT PREPARER, OXYGEN EQUIPMENT PREPARER-C Marino Chou Other Provider Carmela Wisdom MD Primary Care Provider Shah DEDENTER.STEM LEAD FORMER, Patricia Unavailable Larry DEDENTER.PASSENGER ELEVATOR OPERATOR, Ginger Unavailable Larry DEDENTER.PASSENGER ELEVATOR OPERATOR, Ginger Unavailable Dr. Carmela Wisdom MD Primary Care Provider Dr. Irvin Frank DO Emergency Provider José Manuel ARCINIEGA, Dr. Armin Gonzalez Admit Provider José Manuel ARCINIEGA, Dr. Armin Gonzalez Attending Provider Dr. Armin Georges MD Other Provider [phone] José Manuel ARCINIEGA, Dr. Armin Gonzalez Referring Provider Armin Georges Attending Unavailable Armin Geroges Admitting Unavailable Talampas, Carmela D Primary Care Unavailable Armin Georges Consulting Unavailable Armin Georges Attending Unavailable Armin Georges Referring Unavailable Talampas, Carmela D Primary Care Unavailable Armin Georges Attending Unavailable Armin Georges Admitting Unavailable Talampas, Carmela D Primary Care Unavailable TALAMPAS, CARMELA D Primary Care Unavailable KADEEM GOODRICH Attending Unavailable TALAMPAS, CARMELA D Primary Care Unavailable TALAMPAS, CARMELA D Attending Unavailable TALAMPAS, CARMELA D Primary Care Unavailable TALAMPAS, CARMELA D Referring Unavailable TALAMPAS, CARMELA D Primary Care Unavailable PATRICIA SHAH Attending Unavailable TALAMPAS, CARMELA D Attending Unavailable TALAMPAS, CARMELA D Primary Care Unavailable Shah DEDENTER.STEM LEAD FORMER, Patricia Unavailable Allergies Allergy Classification Reported Allergen(s) Allergy Type Date of Onset Reaction(s) Facility (1 source) Omeprazole Drug Allergy 03-06-20 22 [facility] Work Phone: (1 source) Sulfacetamide Drug Allergy 03-06-20 22 [facility] Work Phone: (20 sources) Omeprazole; Translations: [OMEPRAZOLE] Drug Allergy 12-08-19 12 Other: See Comments [facility] Work Phone: (18 sources) Sulfonamides (Antibiotic); Translations: [SULFA (SULFONAMIDE ANTIBIOTICS)] Propensity to adverse reactions 03-14-19 99 Other: See Comments [facility] (4 sources) Sulfonamides (Antibiotic) Allergy to substance 07-01-20 23 PT UNSURE OF REACTION [facility] (4 sources) tolterodine; Translations: [TOLTERODINE] Drug Allergy 12-09-19 25 Intolerance [facility] (1 source) Omeprazole Drug Allergy 12-03-[address] [facility] (1 source) Sulfonamides (Antibiotic) Drug allergy (disorder) 12-03-[address] [facility] Rep[facility] Medications Current Medications Medication Drug Class(es) Dates Sig (Normalized) Sig (Original) aspirin 81 mg delayed release oral tablet (20 sources) Platelet Aggregation Inhibitor, Nonsteroidal Anti-inflammatory Drug Start: 07-17-2023 Aspirin (Adult Low Dose Aspirin) 81 mg tablet,delayed release (DR/EC) Active 81 mg PO DAILY July 17, 2023 12:00am Start: 07-01-2023 End: 07-17-2023 take 1 capsule by mouth once daily Aspirin 81 mg capsule Discontinued 81 mg PO DAILY July 01, 2023 12:00am July 17, 2023 2:05pm Start: 08-07-2005 ASPIRIN 81 MG ORAL TAB Take 81 mg by mouth. Two tablets daily for 30 days post op, surgery 09/11 0 08/07/2005 Active Start: 08-07-2005 take 1 tablet by inna th once daily ASPIRIN 81 MG ORAL TAB Take one (1) tablet daily . 0 08/07/2005 Active take 1 tablet by inna th once daily ELEANOR ASPIRIN EC LOW DOSE 81 MG TBEC 1 tablet by mouth once a day aspirin [id number] Catherine Hickman Comment on above: Take one (1) tablet daily . Take 81 mg by mouth. Two tablets daily for 30 days post op, surgery 09/11 atorvastatin 20 mg oral tablet (13 sources) HMG-CoA Reductase Inhibitor Start: 2022 End: 2024 take 1 tablet by mouth once daily in the morning for hyperlipidemia atorvastatin (LIPITOR) 20 mg tablet Take 1 tablet by mouth every morning. For cholesterol. 90 tablet 3 04/08/2025 Active Comment on above: Take 1 tablet by inna th every morning. For cholesterol. benzonatate 100 mg oral capsule (1 source) Non-narcotic Antitussive Start: 2024 End: 2024 take 1 capsule by mouth every eight hours as needed benzonatate (TESSALON PERLE) 100 mg capsule Take 1 capsule by mouth three times a day as needed for cough for up to 7 days. 21 capsule 03/17/2025 03/24/2025 Active cholecalciferol 0.05 mg oral tablet (20 sources) Vitamin D Start: 2022 take 1 tablet by mouth once daily Cholecalciferol (Vitamin D3) 50 mcg (2,000 unit) tablet Active 4000 U PO DAILY July 17, 2023 12:00am Start: 2014 [address] [facility] once daily Cholecalciferol, Vitamin D3, 2,000 unit cap Indications: Vitamin D deficiency Take 2 tablets by mouth once daily. 2014 Active take 2 tablets by mo [facility] once daily VITAMIN D3 50 MCG (2000 UT) TABS 2 tablet by mouth once a day cholecalciferol (vitamin d3) [id number] Catherine Hickman Comment on above: Take [address] [facility] once daily. Cranberry Fruit (20 sources) Non-Standardized Food Allergenic Extract, Non-Standardized Plant Allergenic Extract Start: 07-17-2023 take 1 capsule by mouth once daily Cranberry Fruit 400 mg capsule Active 400 mg PO DAILY July 17, 2023 12:00am administer with a meal Start: 07-17-2023 take 400 mg by mouth once sergio y Cranberry Active 400 MG PO DAILY July 17, 2023 12:00am administer with a meal CRANBERRY EXTRAC T (CRANBERRY CONCENTRATE ORAL) Take by mouth. Active CRANBERRY EXTRAC T (CRANBERRY CONCENTRATE ORAL) Take by mouth. 0 Active take [address] [facility] once daily Cranberry Concentrate 1 capsule by mouth once a day cranberry extract Catherine Hickman Comment on above: Take by mouth. doxycycline hyclate 100 mg oral tablet (1 source) Tetracycline-class Drug Start: 025 End: take 1 tablet by mouth twice daily doxycycline (VIBRA-TABS) 100 mg tablet Take 1 tablet by mouth two times a day for 5 days. 10 tablet 03/17/2025 03/22/2025 Active levothyroxine sodium 0.025 mg oral tablet (20 sources) l-Thyroxine Start: 022 End: 024 take 1 tablet by mouth once daily for thyroid dysfunction levothyroxine (SYNTHROID) 25 mcg tablet Take 1 tablet by mouth once daily. Take on empty stomach. For thyroid. 90 tablet 3 10/06/2024 Active Comment on above: TAKE [address] [facility] ONCE DAILY. TAKE ON EMPTY STOMACH. FOR THYROID. lisinopril 10 mg oral tablet (18 sources) Angiotensin Converting Enzyme Inhibitor Start: End: take 1 tablet by mouth once daily lisinopril (ZESTRIL) 10 mg tablet Take 1 tablet by mouth once daily. 90 tablet 3 10/06/2024 10/06/2025 Active Comment on above: Take 1 tablet by inna th once daily. Take by mouth. perflutren lipid microspheres 1.3 mL in NaCl (PF) 0.9% 10 mL injection (DEFINITY) (7 sources) Start: End: perflutren lipid microspheres 1.3 mL in NaCl (PF) 0.9% 10 mL injection (DEFINITY) 125 ml sodium chloride 9 mg/ml prefilled syringe (7 sources) Start: End: sodium chloride 0.9 % (flush) 10 mL (BD POSIFLUSH) verapamil hydrochloride 240 mg extended release oral tablet (20 sources) Calcium Channel Em Start: End: take 1 tablet by mouth once daily verapamil SR (CALAN SR) 240 mg CR tablet Indications: Essential hypertension Take 1 tablet by mouth once daily. 90 tablet 3 10/06/2024 Active Comment on above: Take 1 tablet by inna th once daily. Completed/Discontinued Medications Medication Drug Class(es) Dates Sig (Normalized) Sig (Original) nitrofurantoin, macrocrystals 25 mg / nitrofurantoin, monohydrate 75 mg oral capsule (1 source) Nitrofuran Antibacterial Start: 04-08-2025 End: 04-13-2025 take 1 capsule by mouth twice daily nitrofurantoin monohydrate and macrocrystal (MACROBID) 100 mg capsule Take 1 capsule by mouth two times a day for 5 days. 10 capsule 04/08/2025 04/13/2025 tolterodine tartrate 2 mg oral tablet (20 sources) Cholinergic Muscarinic Antagonist Start: 04-04-2021 End: 12-09-2024 take 1 tablet by mouth once daily Tolterodine 2 mg tablet Discontinued 2 mg PO DAILY July 01, 2023 12:00am December 04, 2024 12:14pm take 1 capsule by mouth once jamshid ly DETROL LA 2 MG [id number] 1 capsule by mouth once a day tolterodine [id number] Catherine Hickman Comment on above: Take 1 tablet by inna once daily. Problems Active Problems Problem Classification Problem Date Documented Date Episodic/Chronic Chronic obstructive pulmonary disease and bronchiectasis (1 source) Bronchitis, not specified as acute or chronic; Translations: [Sinobronchitis] Onset: 03-17-2025 Episodic Diverticulosis and diverticulitis (17 sources) Diverticulosis of large intestine; Translations: [Diverticulosis of large intestine without perforation or abscess without bleeding] 05-14-2017 Chronic Essential hypertension (20 sources) Essential hypertension; Translations: [Essential (primary) hypertension] Onset: 07-26-2006 Chronic Genitourinary symptoms and ill-defined conditions (2 sources) Incontinence without sensory awareness; Translations: [Incontinence without sensory awareness] Onset: 04-08-2025 04-08-2025 Chronic Genitourinary symptoms and ill-defined conditions (9 sources) Retention of urine; Translations: [Retention of urine, unspecified] Onset: 12-08-2024 12-09-2024 Episodic Hemorrhoids (17 sources) Internal hemorrhoids; Translations: [Other hemorrhoids] 07-26-2006 Episodic Nutritional deficiencies (20 sources) Vitamin D deficiency; Translations: [Vitamin D deficiency, unspecified] Onset: 02-13-2021 Chronic Osteoarthritis (18 sources) Primary osteoarthritis, left shoulder; Translations: [Osteoarthrosis, localized, primary, shoulder region] Onset: 06-15-2009 03-08-2022 Chronic Other aftercare (5 sources) Patient encounter status; Translations: [Other intermediate (current) drug therapy] Episodic Other non-traumatic joint disorders (1 source) Chronic pain of left upper limb; Translations: [Pain in left shoulder] Episodic Other non-traumatic joint disorders (2 sources) Pain in right knee; Translations: [Pain in joint, lower leg] Onset: 04-08-2025 04-08-2025 Episodic Other nutritional; endocrine; and metabolic disorders (17 sources) Obesity; Translations: [Obesity, unspecified] Onset: 08-07-2005 07-26-2006 Chronic Other nutritional; endocrine; and metabolic disorders (17 sources) Obese class I; Translations: [Obesity, unspecified] Onset: 06-17-2019 06-17-2019 Chronic Other upper respiratory infections (2 sources) Chronic sinusitis; Translations: [Chronic sinusitis, unspecified] Onset: 03-17-2025 03-17-2025 Chronic Other upper respiratory infections (1 source) Sore throat symptom; Translations: [Acute pharyngitis, unspecified] 03-22-2024 Episodic Residual codes; unclassified (1 source) Bilateral lower limb edema; Translations: [Localized edema] 10-06-2024 Episodic Screening and history of mental health and substance abuse codes (2 sources) Encounter for screening for depression; Translations: [Encounter for screening examination for other mental health and behavioral disorders] Onset: 04-08-2025 Episodic Syncope (15 sources) Near syncope; Translations: [Syncope and collapse] 07-01-2023 Episodic Thyroid disorders (20 sources) Acquired hypothyroidism; Translations: [Hypothyroidism, unspecified] Onset: 08-09-2015 Chronic Unclassified (2 sources) Acute pain of right knee 04-27-2025 Past or Other Problems Problem Classification Problem Date Documented Date Episodic/Chronic Allergic reactions (17 sources) Solar degeneration; Translations: [Other skin changes due to chronic exposure to nonionizing radiation] Onset: 10-23-2010 10-23-2010 Episodic Conditions associated with dizziness or vertigo (5 sources) Vertigo; Translations: [Dizziness and giddiness] Onset: 12-08-2024 12-09-2024 Episodic Disorders of lipid metabolism (10 sources) Hyperlipidemia; Translations: [Hyperlipidemia, unspecified] Onset: 07-26-2006 Resolved: 01-21-2014 01-21-2014 Chronic Esophageal disorders (7 sources) Gastroesophageal reflux disease; Translations: [Gastro-esophageal reflux disease without esophagitis] Onset: 12-08-2011 Resolved: 05-14-2017 05-14-2017 Chronic Other aftercare (1 source) Other tank terminal gauger (current) drug therapy; Translations: [Encounter for long-term current use of medication] Onset: 09-30-2024 Episodic Other and unspecified benign neoplasm (17 sources) Melanocytic nevus of trunk; Translations: [Melanocytic nevi of trunk] Onset: 10-23-2010 10-23-2010 Episodic Other non-epithelial cancer of skin (17 sources) History of squamous cell carcinoma of skin; Translations: [Personal history of other malignant neoplasm of skin] Onset: 11-19-2018 06-17-2019 Episodic Other nutritional; endocrine; and metabolic disorders (17 sources) H/O: hypothyroidism; Translations: [Personal history of other endocrine, nutritional and metabolic disease] Onset: 01-18-2020 01-18-2020 Episodic Other screening for suspected conditions (not mental disorders or infectious disease) (20 sources) Raised TSH level; Translations: [Other specified abnormal findings of blood chemistry] Onset: 03-08-2016 Resolved: 05-14-2017 06-17-2019 Episodic Other skin disorders (17 sources) Inflamed seborrheic keratosis; Translations: [Inflamed seborrheic keratosis] Onset: 10-23-2010 10-23-2010 Episodic Other skin disorders (17 sources) Skin tag; Translations: [Unspecified hypertrophic and atrophic conditions of skin] Onset: 10-23-2010 10-23-2010 Episodic Other skin disorders (17 sources) Solar lentigo; Translations: [Other melanin hyperpigmentation] Onset: 10-23-2010 10-23-2010 Episodic Residual codes; unclassified (17 sources) Family history of ischemic heart disease; Translations: [Family history of ischemic heart disease and other diseases of the circulatory system] Onset: 09-29-2008 09-29-2008 Episodic Unclassified (1 source) Problem Results Test Name Value Interpretation Reference Range Facility BACTERIAL CULTURE, URINEOrde red By: Rodrigo Mak on 04-11-2025 Bacteria identified Cx Nom (U) 50,000-<100,000 CFU/ml Mucoid pseudomonas aeruginosa Abnormal [facility] Bacteria identified Cx Nom ( U)Ordered By: Rodrigo Mak on 04-11-2025 Interpretation and review of laboratory results Abnormal [facility] This test was developed and its performance characteristics determined by the [facility] It has not been cleared or approved by the FDA. [facility] is regulated under CLIA as qualified to perform high-complexity testing. This test is used for clinical purposes. It should not be regarded as investigational or for research. [facility] Bacteria Ur Culton 5 Bacteria identified Cx Nom (U) ORGANISM ID: 1 50,000-<100,000 CFU/ml Mucoid pseudomonas aeruginosa ORGANISM ID: 1 (MUCOID PSEUDOMONAS AERUGINOSA) -- ANTIBIOTIC INTERPRETATION JH STATUS REFERENCE RANGE -- Cefepime S 4 F Susceptible <=8 , Intermediate >8 , Resistant >16 Meropenem I 4 F Susceptible <=2 , Intermediate >2 , Resistant >4 Piperacillin/Tazobac S <=8 F Susceptible <=16 , Intermediate >16 , Resistant >=64 Gentamicin R <=2 F Tobramycin NI <=2 F This isolate is intermediate or susceptible to tobramycin. If discrimination between intermediate and susceptible is needed, please call the lab to request additional testing. Amikacin S <=8 F Susceptible <=16 , Intermediate >16 , Resistant >32 Ciprofloxacin S <=0.06 F Susceptible <=0.5 , Intermediate >.5 , Resistant >1 Abnormal [facility] Comment on above: Performed By: #### [id number] #### [facility] [place] [id number] [address] [place] [address] [place] CNOVon 04-08-2025 CNOV Office Visit (INTMWS ) DAISY FERNANDEZ ([id number]) 1945 F Date Time Provider Department 5/21/25 8:00 AM CARMELA WISDOM INTMWS During your visit today, we recorded the following information about you: Temperature Pulse Respiration Blood pressure 98 degrees 73/minute 14/minute 124/60 Weight Height 81.6 kg 1.626 m Janelle James LPN 04/27/2025 1:08 AM Signed Sees at [facility] and stated needs to set up appt. GILMER Roblero Liza D, MD 04/27/2025 1:08 AM Signed HISTORY Daisy Fernandez is a 79 year old lady here for Medicare Annual Wellness Visit, yearly exam and follow up appointment. Daisy is a 79-year-old female, with a history of hypercholesterolemia, HTN, and hypothyroidism, presenting for a Medicare Annual Wellness Visit. She also reports right knee pain and nocturnal urinary incontinence. Daisy reports a 2-week history of right knee pain, described as an ache that worsens with ascending and descending stairs. She denies any known trauma or injury to the knee and has not taken any medication for the pain, stating, I try to avoid pills if I can. She denies pain in the left knee and reports that the pain does not interfere with her sleep. She has not undergone any imaging studies for the knee. Daisy also reports worsening nocturnal urinary incontinence, stating, I wake up and...I'm usually up maybe twice during the night even. She denies dysuria and has not had a bladder infection in over a year. She is taking cranberry pills to prevent infections. During the day, she experiences urinary urgency but denies leakage. She has not yet scheduled an appointment with a urologist but intends to do so. She denies any issues with balance, vision (other than needing reading glasses), hearing, dental health, or sexual function. She also denies feelings of anxiety, stress, anger, irritability, loneliness, or isolation, and has no thoughts of self-harm. She reports eating healthy foods like fruits, vegetables, whole grains, and fiber-rich foods nearly every day. She does not require assistance with activities of daily living such as grocery shopping, cooking, or managing finances. She follows safety precautions at home and wears a seatbelt. She denies smoking, vaping, or using chewing tobacco. Daisy is currently taking atorvastatin, lisinopril, verapamil, and a thyroid medication. She reports taking her thyroid medication daily on an empty stomach and denies any symptoms of thyroid dysfunction. Her last TSH level was in the 4 range, and she has not had any changes in her medication dosage. She has lost approximately 5 lbs since September and is not actively dieting. She has not seen an eye doctor in about a year but reports no issues with her vision. She has a healthcare power of bankruptcy attorney and a living will, with no changes since they were established in 2020. Family history is significant for heart disease, diabetes, and brain tumors. Her oldest sister had brain tumors, and her other sister had heart disease secondary to rheumatic fever. One brother of COVID-19 in August 2022 at the age of 82, another brother of a myocardial infarction, and a third brother had a myocardial infarction and diabetes. Her mother also of a myocardial infarction. 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 Jordan King--derm) Internal hemorrhoids without mention of complication Obesity, unspecified Osteoarthrosis, unspecified whether generalized or localized, other specified sites Osteoarthritis TSH elevation 03/08/2016 no symptoms of hypothyroidism Variants of migraine, not elsewhere classified, without mention of intractable migraine without mention of status migrainosus Current Outpatient Medications Medication Sig verapamil SR (CALAN SR) 240 mg CR tablet Take 1 tablet by mouth once daily. lisinopril (ZESTRIL) 10 mg tablet Take 1 tablet by mouth once daily. levothyroxine (SYNTHROID) 25 mcg tablet Take 1 tablet by mouth once daily. Take on empty stomach. For thyroid. Cholecalciferol, Vitamin D3, 2,000 unit cap Take 2 tablets by mouth once daily. CRANBERRY EXTRACT (CRANBERRY CONCENTRATE ORAL) Take by mouth. ASPIRIN 81 MG ORAL TAB Take 81 mg by mouth. Two tablets daily for 30 days post op, surgery 09/11 atorvastatin (LIPITOR) 20 mg tablet Take 1 tablet by mouth every morning. For cholesterol. No current facility-administered medications for this visit. ALLERGIES Allergen Reactions Omeprazole Other: See Comments Feels caused leg cramping-improved with stopping Sulfa (Sulfonamide * Other: See Comments not sure of reaction Tolterodine Intolerance (more content not included)... Normal [facility] UA DIP, URINE (POC)on 2024 BILIRUBIN UA (POCT) Negative Negative [facility] CLARITY UA (POCT) Slightly Cloudy Cl [facility] COLOR UA (POCT) Yellow [facility] GLUCOSE UA (POCT) Negative Negative mg/dL [facility] Hemoglobin Ql (U) Small Abnormal [facility] Interpretation and review of laboratory results Abnormal [facility] KETONE UA (POCT) Negative Negative mg/dL [facility] LEUKOCYTES UA (POCT) Small Abnormal Negative [facility] NITRITE UA (POCT) Negative Negative [facility] PH UA (POCT) 7 4.5 - 8.0 [facility] Protein Ql (U) Negative Negative mg/dL [facility] SPECIFIC GRAVITY UA (POCT) 1.02 1.005 - 1.030 [facility] UROBILINOGEN UA (POCT) 1 Lizz l E.U./dL [facility] Location:[address], [id number] [place] [address] POINT OF CARE [facility] CNOVon 03-17-2025 CNOV Office Visit (UCWSTR ) DAISY FERNANDEZ ([id number]) 1945 F Date Time Provider Department 03/17/25 11:15 AM KADEEM GOODRICH [facility] During your visit today, we recorded the following information about you: Temperature Pulse Respiration Blood pressure 97.1 degrees 78/minute 16/minute 124/80 Weight 81.8 kg Kadeem Goodrich APRN.PASSENGER ELEVATOR OPERATOR 03/17/2025 11:24 AM Signed Subjective HPI Nontoxic-appearing 79-year-old female presents urgent care chief plaint cough sinus pressure chest congestion. Duration of symptoms 2 weeks. Associated symptoms listed above. Most prominent symptom today is sinus pressure and cough. OTC medications none. Unknown sick contacts. Cough is bothersome at night. Denies any fevers body aches chills productive cough chest pain shortness of breath pleuritic pain or hemoptysis. Past medical history prescription medications allergies reviewed. .Patient presents with: Nasal Congestion: drainage, cough x 2 weeks PAST MEDICAL HISTORY Diagnosis Date Diverticulosis of colon (without mention of hemorrhage) Essential hypertension, benign GERD (gastroesophageal reflux disease) 12/08/2011 History of SCC (squamous cell carcinoma) of skin 2019 left forearm (Dr. Jordan King--derm) Internal hemorrhoids without mention of complication Obesity, unspecified Osteoarthrosis, unspecified whether generalized or localized, other specified sites Osteoarthritis TSH elevation 03/08/2016 no symptoms of hypothyroidism Variants of migraine, not elsewhere classified, without mention of intractable migraine without mention of status migrainosus PAST SURGICAL HISTORY Procedure Laterality Date BMD BONE DENSITY 2003,2005 normal COLONOSCOPY FLX DX W/COLLJ SPEC WHEN PFRMD 10/25/05 Colonoscopy LIG/TRNSXJ FLP TUBE ABDL/VAG APPR UNI/BI Tubal ligation PAST SURGICAL HISTORY OF tonsils PAST SURGICAL HISTORY OF moles removed from knee,neck ,breast, under arm, eyelid all benign RT/LT [facility]HE[facility]S 2008 CC AND CA, R AND L heart ([facility]) ALLERGIES Omeprazole, Sulfa (Sulfonamide Antibiotics), and Tolterodine MEDICATIONS verapamil SR (CALAN SR) 240 mg CR tablet Take 1 tablet by mouth once daily. lisinopril (ZESTRIL) 10 mg tablet Take 1 tablet by mouth once daily. levothyroxine (SYNTHROID) 25 mcg tablet Take 1 tablet by mouth once daily. Take on empty stomach. For thyroid. atorvastatin (LIPITOR) 20 mg tablet Take 1 tablet by mouth every morning. For cholesterol. Cholecalciferol, Vitamin D3, 2,000 unit cap Take 2 tablets by mouth once daily. CRANBERRY EXTRACT (CRANBERRY CONCENTRATE ORAL) Take by mouth. ASPIRIN 81 MG ORAL TAB Take 81 mg by mouth. Two tablets daily for 30 days post op, surgery 09/11 FAMILY HISTORY Problem Relation Age of Onset Diabetes Mother Heart Mother Heart Father Heart Brother other (brain tumors) Sister Diabetes Sister also heart problems Diabetes Brother Coronary Artery Disease Sister Social History Tobacco Use Smoking status: Never Smokeless tobacco: Never Substance Use Topics Alcohol use: No Drug use: No BP 124/80 Pulse 78 Temp 36.2 ?C (97.1 ?F) Resp 16 Wt 81.8 kg (180 lb 5.4 oz) SpO2 95% Review of Systems Constitutional: Negative for chills, fever and malaise/fatigue. HENT: Positive for congestion and sinus pain. Negative for ear discharge, ear pain and sore throat. Eyes: Negative for blurred vision, pain, discharge and redness. Respiratory: Positive for cough. Negative for hemoptysis, sputum production, shortness of breath, wheezing and stridor. Cardiovascular: Negative for chest pain. Gastrointestinal: Negative for abdominal pain, diarrhea, nausea and vomiting. Musculoskeletal: Negative for myalgias. Skin: Negative for itching and rash. Neurological: Negative for dizziness and headaches. Objective Physical Exam Constitutional: General: She is not in acute distress. Appearance: She is not diaphoretic. HENT: Head: Normocephalic. Jaw: No trismus, tenderness, swelling or pain on movement. Nose: Congestion present. Right Sinus: Maxillary sinus tenderness present. Left Sinus: Maxillary sinus tenderness present. Mouth/Throat: Mouth: Mucous membranes are moist. Pharynx: Oropharynx is clear. Uvula midline. No pharyngeal swelling, oropharyngeal exudate, posterior oropharyngeal erythema or uvula swelling. Eyes: Conjunctiva/sclera: Conjunctivae normal. Pupils: Pupils are equal, round, and reactive to light. Cardiovascular: Rate and Rhythm: Normal rate and regular rhythm. Heart sounds: Normal heart sounds. Pulmonary: Effort: Pulmonary effort is normal. No tachypnea, accessory muscle usage or respiratory distress. Breath sounds: Normal breath sounds. No stridor. No wheezing, rhonchi or rales. Abdominal: General: There is no distension. Palpations: Abdomen is soft. Tenderness: There is no abdomin (more content not included)... Normal [facility] CNOVon 12-09-2024 CNOV Office Visit (INTMWS ) DAISY FERNANDEZ ([id number]) 1945 F Date Time Provider Department 12/09/24 7:40 AM PATRICIA SHAH During your visit today, we recorded the following information about you: Pulse Respiration Blood pressure Weight 65/minute 16/minute 137/81 83 kg Patricia Shah APRN.STEM LEAD FORMER 12/09/2024 8:02 AM Signed Subjective Patient presents with: Hospital F/U SUBJECTIVE: Daisy Fernandez is a 79 year old year old. PMH significant for ACTIVE PROBLEM LIST OVERWEIGHT Diverticulosis of Large Intestine Internal Hemorrhoids Without Mention of Complication Essential Hypertension Family History of Ischemic Heart Disease Generalized Osteoarthrosis, Unspecified Site Irritated//Inflamed Seborrheic Keratoses Skin tags//Skin tag Papillomas Melanocytic nevus of trunk: mid back Solar lentigines Actinic Damage//Sun-damaged skin Acquired Hypothyroidism Obesity, Class I, Bmi 30-34.9 Tsh Elevation History of Scc (Squamous Cell Carcinoma) of Skin History of Hypothyroidism Vitamin D Deficiency Presents for emergency department follow-up visit. She was seen at [facility] on December 03, 2024 for presyncopal episode. She reported arising from bed to use the bathroom and felt dizzy, this was brief and resolved. Recurred when she went to arise from bed again so EMS was called. Horizontal nystagmus was noted and slight/mild. Positive Hallpike Waskish exam. Cranial nerves grossly intact. Lab work completed and showed no significant findings. She was given 1 L of fluid for dehydration by physical exam. Treated with 2 mg of oral Valium symptoms are most consistent with vertigo. While awaiting results of CTA she reported abdominal pain and found to have a distended bladder, unable to void therefore Ryder catheter was placed. She was unable to ambulate in the ER despite bladder compression scopolamine patch and 2 doses of Valium due to dizziness so she was admitted for further monitoring. Ryder catheter was discontinued during her admission and found to have 300 cc of postvoid residual. Replacement of the catheter was covered she preferred to go home with withdrawal of tolterodine to see if symptoms improved. She was advised to return to the ER if urinary retention recurred. Impression with vertigo, acute urinary retention CTA of head and neck with chronic changes, no acute findings. Today reports feeling improved. Notes vertigo has resolved, no recurrence. She has not needed any medications for send since using scopolamine in the ER. Notes that she has not had urinary retention since her discharge home. She notes increased frequency and nocturia but no gross hematuria no dysuria no incontinence. She is not sure if she something her bladder completely. Vertigo: resolved History of gross hematuria 2012, underwent cystoscopy [facility], negative findings, one year follow up advised, not completed. Urologist: She has an appointment with Dr Perez urologist in 2 weeks Last 14 Encounter BP Readings: Date: BP: 12/09/2024 137/81 10/06/2024 121/70 04/01/2024 118/68 03/22/2024 150/72 09/21/2023 124/68 07/10/2023 122/72 07/03/2023 115/71 03/21/2023 138/64 09/20/2022 128/74 03/01/2022 128/72 08/15/2021 120/70 01/28/2021 122/68 07/07/2020 118/62 12/29/2019 122/68 Hypothyroidism. She is doing well on her current dose of Synthroid. TSH Date Value 09/30/2024 4.090 mIU/L 11/21/2023 4.110 mIU/L 08/11/2021 2.870 uU/mL 05/17/2020 3.340 uU/mL ) PAST MEDICAL HISTORY Diagnosis Date Diverticulosis of colon (without mention of hemorrhage) Essential hypertension, benign GERD (gastroesophageal reflux disease) 12/08/2011 History of SCC (squamous cell carcinoma) of skin 2019 left forearm (Dr. Jordan King--derm) Internal hemorrhoids without mention of complication Obesity, unspecified Osteoarthrosis, unspecified whether generalized or localized, other specified sites Osteoarthritis TSH elevation 03/08/2016 no symptoms of hypothyroidism Variants of migraine, not elsewhere classified, without mention of intractable migraine without mention of status migrainosus Current Outpatient Medications Medication Sig verapamil SR (CALAN SR) 240 mg CR tablet Take 1 tablet by mouth once daily. lisinopril (ZESTRIL) 10 mg tablet Take 1 tablet by mouth once daily. levothyroxine (SYNTHROID) 25 mcg tablet Take 1 tablet by mouth once daily. Take on empty stomach. For thyroid. atorvastatin (LIPITOR) 20 mg tablet Take 1 tablet by mouth every morning. For cholesterol. Cholecalciferol, Vitamin D3, 2,000 unit cap Take 2 tablets by mouth once daily. CRANBERRY EXTRACT (CRANBERRY CONCENTRATE ORAL) Take by mouth. ASPIRIN 81 MG ORAL TAB Take 81 mg by mouth. Two tablets daily for 30 days post op, surgery 09/11 No current facility-administered medications for this visit. Review of Syste (more content not included)... Normal [facility] Discharge Instructionon 11-19 Discharge Instruction [facility] Medical Records Department [address] [place] [address] Instructions for Home/Discharge Instructions 12/04/24 1113 MR#: [id number] Acct: [id number] Name: DAISY FERNANDEZ Rep #: [id number] : 1945 79 From: Armin Georges MD PCP: Dr. Carmela Wisdom MD Status:ADM PAM Discharge Instructions Diet Discharge Diet: Low fat / Low cholesterol DC O2, CPAP, BIPAP needs Home O2 Discharge instructions: No Dressing / Incision Discharge Activity: Return to Normal Activity Dressing / Incision Call your doctor if you observe: Fever of 101 or Higher, Shortness of breath, Dizziness, Fainting spells, Swelling in the ankles, Chest pain and Increased palpitations (irregular heartbeat) Follow Up Care Test Results: Test results from this visit will be discussed in further detail at your follow-up appointment, if applicable. Discharge Plan Admission Admit Date/Time: 12/03/24 08:09 Attending Provider: Armin Georges Primary Care Provider: Carmela Wisdom Instructions Patient Instructions: ED Ryder Catheter, Care, ED Urinary Retention, Female, ED Vertigo, Unspecified Additional Instructions / Restrictions: If you develop abdominal pain from urinary retention please return to the ER to have a Ryder placed, you would not need to be readmitted to the hospital. Discharge Orders/Prescriptions Prescriptions: Continued aspirin [Adult Low Dose Aspirin] 81 mg tablet,delayed release (DR/EC) 81 mg PO DAILY cholecalciferol (vitamin D3) 50 mcg (2,000 unit) tablet 4,000 unit PO DAILY cranberry 400 mg capsule 400 mg PO DAILY Rx Instructions: administer with a meal verapamil 240 mg tablet extended release 240 mg PO DAILY Patient Comments: TAKE 1 TABLET BY MOUTH EVERY DAY levothyroxine 25 mcg tablet 25 mcg PO DAILY Patient Comments: TAKE 1 TABLET BY MOUTH ONCE DAILY. TAKE ON EMPTY STOMACH. FOR THYROID. lisinopril 10 mg tablet 10 mg PO DAILY Qty: 30 0RF atorvastatin [Lipitor] 20 mg tablet 20 mg PO .daily Qty: 90 3RF Discontinued tolterodine 2 mg tablet 2 mg PO DAILY Referrals / Follow Up: Wan Malagon MD [Med Staff - Active Staff] - Carmela Wisdom MD [Primary Care Provider] - Disposition Disposition (needs filled in before D/C Order can be placed): Home, Self Care 12/04/24 1115 Armin Georges MD CC: Dr. Carmela Wisdom MD Signed Normal [facility] Absolute lymphocyte countOrd ered By: Irvin Frank on 12-03-2024 Lymphocytes Auto (Unsp spec) [#/Vol] 4.22 10*3/uL 0.83-4.[address] [facility] Absolute neutrophil countOrd ered By: Irvin Frank on 12-03-2024 Neutrophils (Bld) [#/Vol] 2.8 10*3/uL 2.0-7.[address] [facility] Automated lymphocyte count a s percentage of total leukocytesOrdered By: Irvin Frank on 12-03-2024 Lymphocytes/100 WBC Auto (Unsp spec) 54.0 % High 19-[address] [facility] Basic Metabolic Profile (BMP )on 12-03-2024 BUN/CRE 22.8 RATIO High 10-[address] [facility] Comment on above: Performed By: #### L 100.0100, L500.2500, L501.5200 #### [facility] Laboratory [address] [place], [address] CA,Total 9.3 mg/dL Normal 8.5-10.[address] [facility] Comment on above: Performed By: #### L 100.0100, L500.2500, L501.5200 #### [facility] [address] [place], [address] Chloride [Moles/Vol] 106 mmol/L Normal 98-107 [facility] Comment on above: Performed By: #### L 100.0100, L500.2500, L501.5200 #### [facility] [address] [place], [address] CO2 [Moles/Vol] 28.0 mmol/L Normal 21.0-32.[address] [facility] Comment on above: Performed By: #### L 100.0100, L500.2500, L501.5200 #### [facility] [address] [place], [address] Creatinine [Mass/Vol] 0.96 mg/dL Normal 0.55-1.02 [facility] Comment on above: Result Comment: The validity of the calculated GFR GFRAA in patients over 70 years has not been determined. Clinical correlation is essential. Performed By: #### L 100.0100, L500.2500, L501.5200 #### [facility] [address] [place], [address] ECRCL 48.50 ml/min Normal [facility] Comment on above: Performed By: #### L 100.0100, L500.2500, L501.5200 #### [facility] [address] [place], [address] EST GFR - AA 71 mL/min Normal >[address] [facility] Comment on above: Result Comment: Afri can [place]ian GFR Calc Performed By: #### L 100.0100, L500.2500, L501.5200 #### [facility] [address] [place], [address] GAP 6 Normal 5-[address] [facility] Comment on above: Performed By: #### L 100.0100, L500.2500, L501.5200 #### [facility] [address] [place], [address] GFR/1.73 sq M.predicted among non-blacks MDRD (S/P/Bld) [Vol rate/Area] 59 mL/min/{1.73_m2} Low >[address] [facility] Comment on above: Result Comment: Non- GFR Calc Performed By: #### L 100.0100, L500.2500, L501.5200 #### [facility] [address] [place], [address] Glucose [Mass/Vol] 138 mg/dL High 74-106 [facility] Comment on above: Result Comment: Fast ing Glucose result greater than or equal to 126 mg/dL suggests DIABETES MELLITUS per A.D.A. criteria. Performed By: #### L 100.0100, L500.2500, L501.5200 #### [facility] [address] [place], [address] Potassium [Moles/Vol] 4.0 mmol/L Normal 3.5-5.1 [facility] Comment on above: Performed By: #### L 100.0100, L500.2500, L501.5200 #### [facility] [address] [place], [address] Sodium [Moles/Vol] 140 mmol/L Normal 136-145 [facility] Comment on above: Performed By: #### L 100.0100, L500.2500, L501.5200 #### [facility] [address] [place], [address] Urea nitrogen [Mass/Vol] 22 mg/dL High 7-[address] [facility] Comment on above: Performed By: #### L 100.0100, L500.2500, L501.5200 #### [facility] [address] [place], [address] Basophil percentageOrdered B y: Irvin Frank on 12-03-2024 Basophils/100 WBC (Bld) 0.5 % 0-1 [facility] Bilirubin Test strip Ql (U)O rdered By: Irvin Frank on 12-03-2024 Bilirubin Ql (U) Negative Negative [facility] Blood urea nitrogen (BUN)/cr eatinine ratioOrdered By: Irvin Frank on 12-03-2024 Urea nitrogen/Creatinine [Mass ratio] 22.8 mg/mg High - [facility] Brain without Contraston Brain without Contrast [facility] Imaging Services [address] [place] [address] Brain without Contrast MR#: [id number] Acct: [id number] Name: DAISY FERNANDEZ Rep #: [id number] : 1945 F 79 From: Rayo kaplan MD PCP: Dr. Carmela Wisdom MD Status: ADM PAM Study: Brain without Contrast Date of Exam: 12/03/24 Exam# [id number] Ordering Dr: Irvin Frank DO [id number] STUDY: MRI BRAIN WITHOUT CONTRAST REASON FOR EXAM: Female, 79 years old. dizziness TECHNIQUE: Standardized multiplanar fat and water weighted pulse sequences were obtained. COMPARISON: Head CT dated December 03, 2024. FINDINGS: Normal size of the ventricles and extra-axial spaces for the patient''s age. There are multiple white matter hyperintensities, distributed throughout the deep white matter tracts of the cerebral hemispheres, consistent with moderate chronic white matter ischemic changes. There is no evidence for recent intracranial ischemia or other cause of cytotoxic edema on diffusion weighted imaging (DWI). Normal T2* images of the brain without demonstrated susceptibility artifact. There is no demonstrated hemosiderin stain. There are no demyelinating plagues of the supratentorial brain, brainstem or cerebellum. There are no findings suspicious for multiple sclerosis (MS). Normal bilateral basal ganglia. Normal thalami. There is no extra-axial fluid accumulation. Normal flow voids within the major intracranial circulation suggesting patency by spin echo criteria. Normal sella turcica, pituitary gland, infundibular stalk, optic chiasm and hypothalamus. Normal tectal plate and pineal gland. Normal midbrain, maryse and medulla. Normal cerebellum. Normal basal cisterns. Normal bilateral temporal bones. Normal bilateral internal auditory canals. No demonstrated orbital abnormality, within the constraints of a routine brain study. Normal visualized paranasal sinuses. Normal calvarium and skull base. Normal visualized soft tissue structures. Normal visualized upper cervical spine. MRI/Brain without Contrast IMPRESSION: 1. Involutional changes of the brain, as described above. Electronically Signed: Rayo Nixon MD at 15:32 EST Reading Location ID and State: [facility] / [place] , Service support , CC: Dr. Carmela Wisdom MD; Irvin Frank DO Trade Show Specialist: Signed Normal [facility] Brain/Head without Contrasto n 12-03-2024 Brain/Head without Contrast [facility] Imaging Services [address] [place] [address] Brain/Head without Contrast MR#: [id number] Acct: [id number] Name: DAISY FERNANDEZ Rep #: [id number] : 1945 F 79 From: Dayna Block PCP: Dr. Carmela Wisdom MD Status: REG Study: Brain/Head without Contrast Date of Exam: 11/19 04/12 Exam# [id number] Ordering Dr: Irvin Frank DO [id number] INDICATION: dizziness dizziness thats not getting better, started tonight, hx of same EXAMINATION: CT BRAIN - CT Head or Brain W/O Contrast Injection TECHNIQUE: Multiple axial images were obtained of the head without intravenous contrast. The protocol utilizes one or more of the following dose reduction techniques: automated exposure control, adjustment of mA and/or kV according to patient size,and/or use of iterative reconstruction technique. IV Contrast dosage and agent: None. RADIATION DOSAGE (If Supplied By Facility): CTDIvol = ( 44.99 ) mGy, DLP = ( 880.47 ) mGycm COMPARISON: Prior study dated: 07/01/2023 FINDINGS: BRAIN: No acute bleed. No edema. Mild decreased attenuation in the periventricular white matter bilaterally. Zamora-white matter differentiation is maintained. Arterial calcifications. VENTRICLES AND SULCI: The ventricles are not dilated. The sulci are prominent. EXTRA-AXIAL: No hemorrhage, fluid collection, or mass. CALVARIUM / SKULL BASE: Unremarkable. FACE/SINUSES: Minimal mucosal thickening in the left maxillary sinus. SOFT TISSUES: Unremarkable. CT/Brain/Head without Contrast IMPRESSION: No acute abnormality. Mild chronic microvascular ischemic disease. CT angiogram and/or MRI may be helpful to evaluate for acute infarct as clinically indicated. Electronically Signed: Dayna Rodriguez MD at 4:03 EST , CC: Dr. Carmela Wisdom MD; Irvin Frank DO Trade Show Specialist: Signed Normal [facility] CBC W/Diff, Automatedon 11-19 Absolute Lymph 4.22 X10 3/uL Normal 0.83-4.[address] [facility] Comment on above: Performed By: #### L 100.0100, L500.2500, L501.5200 #### [facility] Laboratory [address] [place], [address] Absolute Neut 2.8 X10 3/uL Normal 2.0-7.[address] [facility] Comment on above: Performed By: #### L 100.0100, L500.2500, L501.5200 #### [facility] [address] [place], [address] Basophils/100 WBC (Bld) 0.5 % Normal 0-1 [facility] Comment on above: Performed By: #### L 100.0100, L500.2500, L501.5200 #### [facility] [address] [place], [address] Eosinophils/100 WBC (Bld) 2.4 % Normal 0-[address] [facility] Comment on above: Performed By: #### L 100.0100, L500.2500, L501.5200 #### [facility] [address] [place], [address] Erythrocyte distribution width (RBC) [Ratio] 13.2 % Normal 11.6-14.[address] [facility] Comment on above: Performed By: #### L 100.0100, L500.2500, L501.5200 #### [facility] [address] [place], [address] Hematocrit (Bld) [Volume fraction] 41.4 % Normal 37-[address] [facility] Comment on above: Performed By: #### L 100.0100, L500.2500, L501.5200 #### [facility] [address] [place], [address] Hemoglobin (Bld) [Mass/Vol] 13.9 g/dL Normal 12.0-15.[address] [facility] Comment on above: Performed By: #### L 100.0100, L500.2500, L501.5200 #### [facility] [address] [place], [address] IG% 0.100 Normal 0.0-0.[address] [facility] Comment on above: Result Comment: IG% - Immature Granulocytes (promyelocytes, myelocytes and metamyelocytes) > 1% indicates that a LEFT SHIFT is Present. Performed By: #### L 100.0100, L500.2500, L501.5200 #### [facility] [address] [place], [address] Lymphocytes/100 WBC (Bld) 54.0 % High 19-[address] [facility] Comment on above: Performed By: #### L 100.0100, L500.2500, L501.5200 #### [facility] [address] [place], [address] MCH (RBC) [Entitic mass] 31.4 pg Normal 27.0-32.[address] [facility] Comment on above: Performed By: #### L 100.0100, L500.2500, L501.5200 #### [facility] [address] [place], [address] MCHC (RBC) [Mass/Vol] 33.6 g/dL Normal 32-36 [facility] Comment on above: Performed By: #### L 100.0100, L500.2500, L501.5200 #### [facility] [address] [place], [address] MCV (RBC) [Entitic vol] 93.5 fL Normal 81-99 [facility] Comment on above: Performed By: #### L 100.0100, L500.2500, L501.5200 #### [facility] [address] [place], [address] Monocytes/100 WBC (Bld) 6.9 % Normal 0-10 [facility] Comment on above: Performed By: #### L 100.0100, L500.2500, L501.5200 #### [facility] [address] [place], [address] Neutrophils/100 WBC (Bld) 36.1 % Low 47-[address] [facility] Comment on above: Performed By: #### L 100.0100, L500.2500, L501.5200 #### [facility] [address] [place], [address] Nucleated RBC (Bld) [#/Vol] 0 10*3/uL Normal 0-[address] [facility] Comment on above: Performed By: #### L 100.0100, L500.2500, L501.5200 #### [facility] [address] [place], [address] Platelet mean volume (Bld) [Entitic vol] 10.0 fL Normal 6.2-12.[address] [facility] Comment on above: Performed By: #### L 100.0100, L500.2500, L501.5200 #### [facility] [address] [place], [address] Platelets (Bld) [#/Vol] 252 10*3/uL Normal 150-[address] [facility] Comment on above: Performed By: #### L 100.0100, L500.2500, L501.5200 #### [facility] [address] [place], [address] RBC (Bld) [#/Vol] 4.43 10*6/uL Normal 4.2-5.4 [facility] Comment on above: Performed By: #### L 100.0100, L500.2500, L501.5200 #### [facility] [address] [place], [address] RDW SD 45.1 fl High 35.1-43.[address] [facility] Comment on above: Performed By: #### L 100.0100, L500.2500, L501.5200 #### [facility] [address] [place], [address] WBC (Bld) [#/Vol] 7.8 10*3/uL Normal 4.4-11.0 [facility] Comment on above: Performed By: #### L 100.0100, L500.2500, L501.5200 #### [facility] [address] [place], [address] CTA Head AND Neck W/ Contras ton 12-03-2024 CTA Head AND Neck W/ Contrast [facility] Imaging Services [address] [place] [address] CTA Head AND Neck W/ Contrast MR#: [id number] Acct: [id number] Name: DAISY FERNANDEZ Rep #: [id number] : 1945 F 79 From: Ari Block PCP: Dr. Carmela Wisdom MD Status: REG ER Study: CTA Head AND Neck W/ Contrast Date of Exam: Exam# [id number] Ordering Dr: Irvin Frank DO [id number] INDICATION: Intractable dizziness EXAMINATION: CT BRAIN WITHOUT CONTRAST, CTA HEAD, AND CTA NECK TECHNIQUE: Noncontrast axial images were obtained of the brain. Subsequently, routine carotid CT angiogram protocol was performed without and with IV contrast. In addition, images were obtained of the [place]. NASCET criteria using the distal ICAs for comparison were used for evaluation of stenoses. 3D reconstructions were reviewed. The protocol utilizes one or more of the following dose reduction techniques: automated exposure control, adjustment of mA and/or kV according to patient size,and/or use of iterative reconstruction technique. IV Contrast dosage and agent: IV 100mL Isovue-370 COMPARISON: No relevant prior comparison study available FINDINGS: --CT BRAIN WITHOUT CONTRAST: BRAIN PARENCHYMA: No intra- or extra-axial hemorrhage. No evidence of acute infarct. No intracranial mass or mass effect. There is preservation of the zamora/white matter interface. Posterior fossa structures are unremarkable. CSF SPACES: Appropriate for age. No hydrocephalus. Basal cisterns are patent. CALVARIUM, SKULL BASE, PARANASAL SINUSES AND MASTOID AIR CELLS: Clear. No discrete lytic or blastic abnormalities. ASPECTS Score for Acute Strokes: 10 --CTA NECK: AORTIC ARCH AND BRANCHES: Normal anatomy, patent. RIGHT CCA: No occlusion, significant stenosis or dissection. RIGHT ICA: Moderate atherosclerosis of the carotid bulb. 20% stenosis at the origin of the right ICA. LEFT CCA: No occlusion, significant stenosis or dissection. LEFT ICA: Moderate atherosclerosis of the carotid bulb. 50% stenosis at the origin of the right ICA. RIGHT VERTEBRAL ARTERY: Mild atherosclerosis at the origin of the right vertebral artery with 50% stenosis at the origin. LEFT VERTEBRAL ARTERY: Mild atherosclerosis at the origin of the left vertebral artery without significant stenosis or dissection. NECK SOFT TISSUES: Unremarkable. --CTA HEAD: --Anterior circulation: ICAs: No significant stenosis at the intracranial/visualize d segments. ACAs: No significant stenosis at the visualized segments. ACOM: Present. MCAs: No significant stenosis at the visualized segments. --Posterior circulation: payment collector: No significant stenosis at the visualized segments. BASILAR ARTERY: No significant stenosis. VERTEBRAL ARTERIES: No significant stenosis at the intradural/visualized segments. No evidence of intracranial aneurysm or vascular malformation. CT/CTA Head AND Neck W/ Contrast IMPRESSION: Mild to moderate atherosclerosis with 50% stenosis at the origin of the left ICA and right vertebral artery. No significant stenosis of the right carotid or left vertebral arteries. Negative CT Brain, and CTA Brain. Electronically Signed: Ari Torres MD at 6:13 EST Reading Location ID and State: [facility] / [place] Tel , Service support , CC: Dr. Carmela Wisdom MD; Irvin Frank DO Trade Show Specialist: Signed Normal [facility] Carbon dioxide measurementOr dered By: Irvin Frank on 12-03-2024 CO2 [Moles/Vol] 28.0 mmol/L 21.0-32.[address] [facility] Chloride measurementOrdered By: Irvin Frank on 12-03-2024 Chloride [Moles/Vol] 106 mmol/L 98-107 [facility] Emergency Department Summary on 12-03-2024 Emergency Department Summary [facility] Medical Records Department [address] [place] [address] Emergency Department Summary 12/03/24 MR#: [id number] Acct: [id number] Name: DAISY FERNANDEZ Rep #: [id number] : 1945 79 From: Irvin Frank DO PCP: Dr. Carmela Wisdom MD Status:REG ER Location: ED HPI History of Present Illness Chief Complaint: Dizziness Informant: patient, spouse/S.O. and EMS Narrative Narrative: Patient is an 79-year-old female with past medical history of hypertension and hypothyroidism. She states she went to bed normally and then awoke roughly an hour prior to arrival to use the restroom. She states when she stood up to go to the bathroom she felt dizzy which she described as a lightheaded near syncopal event. She states that she rested and it seemed to improve when she sat up the same symptoms occurred and therefore EMS was called to bring her in for evaluation. [facility] Medical History Hypothyroidism Syncope Diverticulosis SCC (squamous cell carcinoma) Osteoarthritis Obesity Migraine Essential hypertension Overactive bladder Home Medications ???Medication ???Instructions ???Recorded ???Last Taken ???Type levothyroxine 25 mcg tablet 25 mcg PO DAILY 07/01/23 09/14/23 History lisinopril 10 mg tablet 10 mg PO DAILY #30 tabs 07/01/23 09/14/23 Rx tolterodine 2 mg tablet 2 mg PO DAILY 07/01/23 Unknown History verapamil 240 mg tablet,extended 240 mg PO DAILY 07/01/23 09/14/23 History release aspirin 81 mg tablet,delayed 81 mg PO DAILY 07/17/23 09/14/23 History release (Adult Low Dose Aspirin) cholecalciferol (vitamin D3) 50 4,000 unit PO DAILY 07/17/23 Unknown History mcg (2,000 unit) tablet cranberry 400 mg capsule 400 mg PO DAILY 07/17/23 Unknown History atorvastatin 20 mg tablet (Lipitor) 20 mg PO .daily #90 tabs 09/14/23 Unknown Rx Allergy/AdvReac Type Severity Reaction Status Date / Time omeprazole Allergy Unknown unknown Verified 12/03/24 01:59 Sulfa (Sulfonamide Allergy Unknown PT UNSURE Verified 12/03/24 01:59 Antibiotics) OF REACTION Family History Sister CAD (coronary artery disease) Diabetes Brain tumor Brother Diabetes Heart disease Mother Diabetes Heart disease Father Heart disease Surgical History H/O shoulder replacement History of colonoscopy History of left heart catheterization (04/05/09) History of tubal ligation Hx of tonsillectomy Social History Smoking Status: Never smoker alcohol intake: never substance use type: does not use caffeine: Yes Type: carbonated beverages ROS ROS ED Constitutional Constitutional ED: Denies chills or fever(s) Eyes Eyes: Denies blurry vision or change in vision ENT ENT ED: Denies sore throat Cardiovascular Cardiovascular: Denies chest pain, palpitations or racing heartbeat Respiratory/Chest Respiratory/Chest: Denies cough or dyspnea Gastrointestinal Gastrointestinal: Reports nausea; Denies abdominal pain, diarrhea or vomiting Genitourinary Genitourinary ED: Denies dysuria Musculoskeletal Musculoskeletal: Denies myalgias Integumentary Denies rash Neurologic Neurologic: Reports other Details: Positive dizziness ; Denies headache(s) Hematologic/Lymphatic Hematologic/Lymphatic: Denies easy bleeding or easy bruising EXAM Physical Exam Const Vital Signs: 12/03/24 01:55 12/03/24 01:58 12/03/24 02:13 Temperature 97.9 F 97.9 F Temperature Source Oral Oral Pulse Rate 84 85 Pulse Rate [Lying] 76 Pulse Rate [Sitting (for 1 minute prior to obtaining)] 71 Respiratory Rate 19 H 14 Blood Pressure 185/77 H 185/77 H Blood Pressure [Lying] 169/71 H Blood Pressure [Sitting (for 1 minute prior to obtaining)] 176/91 H Blood Pressure Mean 113 113 Blood Pressure Mean [Lying] 103 Blood Pressure Mean [Sitting (for 1 minute prior to obtaining)] 119 Pulse Ox 99 98 Oxygen Delivery Method Room Air Room Air 12/03/24 03:55 12/03/24 05:00 12/03/24 07:00 Temperature Temperature Source Pulse Rate 82 90 75 Pulse Rate [Lying] Pulse Rate [Sitting (for 1 minute prior to obtaining)] Respiratory Rate 18 18 20 H Blood Pressure 164/89 H 196/98 H Blood Pressure [Lying] Blood Pressure [Sitting (for 1 minute prior to obtaining)] Blood Pressure Mean 114 130 Blood Pressure Mean [Lying] Blood Pressure Mean [Sitting (for 1 minute prior to obtaining)] Pulse Ox 92 95 98 Oxygen Delivery Method Room Air Room Air Room Air 12/03/24 07:11 Temperature Temperature Source Pulse Rate 89 Pulse Rate [Lying] Pulse Rate [Sitting (for (more content not included)... Normal [facility] Eosinophil percentageOrdered By: Irvin Frank on 12-03-2024 Eosinophils/100 WBC (Bld) 2.4 % 0-[address] [facility] Erythrocyte distribution wid th ratioOrdered By: Irvin Frank on 12-03-2024 Erythrocyte distribution width (RBC) [Ratio] 13.2 % 11.6-14.[address] [facility] Erythrocyte distribution wid th standard deviationOrdered By: Irvin Frank on 12-03-2024 Erythrocyte distribution width (RBC) [Ratio] 45.1 fl High 35.1-43.[address] [facility] Glomerular filtration rate ( GFR) estimationOrdered By: Irvin Frank on 12-03-2024 GFR/1.73 sq M.predicted among non-blacks MDRD (S/P/Bld) [Vol rate/Area] 59 mL/min/{1.73_m2} Low >[address] [facility] Comment on above: Non- GFR Calc Glucose measurementOrdered B y: Irvin Frank on 12-03-2024 Glucose [Mass/Vol] 138 mg/dL High 74-106 [facility] Comment on above: Fasting Glucose resu lt greater than or equal to 126 mg/dL suggests DIABETES MELLITUS per A.D.A. criteria. H AND P Exam - Hospitaliston 12-03-2024 H&P Exam - Hospitalist [facility] Medical Records Department [address] [place] [address] H P Exam - Hospitalist 12/03/241919 MR#: [id number] Acct: [id number] Name: DAISY FERNANDEZ Rep #: [id number] : 1945 79 From: Armin Georges MD PCP: Dr. Carmela Wisdom MD Status:ADM PAM Location: [place] [address] HPI - General General Date of Admission: 12/03/24 HPI Narrative DAISY FERNANDEZ, is a 79 F who presents to the hospital with dizziness and vertigo. She has had episodes in the past of near syncope and syncope usually whenever she gets hot. Today she woke up at around 1 AM and had significant dizziness and trouble walking. She presented to the hospital and was felt to be vertigo but she had difficulty ambulating on her own and did not feel safe going home so she was admitted. MRI did not demonstrate a stroke or tumor and she denies any upper respiratory infections to indicate M???ni???re's or labyrinthitis. She does not have a visual nystagmus but she also had an episode of urinary retention that while in the ER led to abdominal pain and necessitating a Ryder being placed. She is on few medications but one of the medications she is on is tolterodine which can lead to urinary retention as well as dizziness and vertigo given its anticholinergic effects, she also has a head tremor which started around the time of this medication being prescribed therefore I discussed with family present this will be discontinued on discharge. At the time of my evaluation she feels that her dizziness is much improved and almost resolved however she did not feel comfortable going home after admission so we will evaluate overnight. [facility] Medical History Hypothyroidism Syncope Diverticulosis SCC (squamous cell carcinoma) Osteoarthritis Obesity Migraine Essential hypertension Overactive bladder Home Medications ???Medication ???Instructions ???Recorded ???Last Taken ???Type levothyroxine 25 mcg tablet 25 mcg PO DAILY 07/01/23 12/02/24 History lisinopril 10 mg tablet 10 mg PO DAILY #30 tabs 07/01/23 12/02/24 Rx tolterodine 2 mg tablet 2 mg PO DAILY 07/01/23 Unknown History verapamil 240 mg tablet,extended 240 mg PO DAILY 07/01/23 12/02/24 History release aspirin 81 mg tablet,delayed 81 mg PO DAILY 07/17/23 12/02/24 History release (Adult Low Dose Aspirin) cholecalciferol (vitamin D3) 50 4,000 unit PO DAILY 07/17/23 12/02/24 History mcg (2,000 unit) tablet cranberry 400 mg capsule 400 mg PO DAILY 07/17/23 12/02/24 History atorvastatin 20 mg tablet (Lipitor) 20 mg PO .daily #90 tabs 09/14/23 12/02/24 Rx Allergy/AdvReac Type Severity Reaction Status Date / Time omeprazole Allergy Unknown unknown Verified 12/03/24 01:59 Sulfa (Sulfonamide Allergy Unknown PT UNSURE Verified 12/03/24 01:59 Antibiotics) OF REACTION Family History Sister CAD (coronary artery disease) Diabetes Brain tumor Brother Diabetes Heart disease Mother Diabetes Heart disease Father Heart disease Surgical History H/O shoulder replacement History of colonoscopy History of left heart catheterization (04/05/09) History of tubal ligation Hx of tonsillectomy Social History Smoking Status: Never smoker alcohol intake: never substance use type: does not use caffeine: Yes Type: carbonated beverages ROS Constitutional Constitutional: Denies chills, fatigue, fever(s) or malaise Eyes Eyes: Denies blurry vision ENT HEENT: Denies headache(s) or nasal discharge Cardiovascular Cardiovascular: Denies chest pain, dyspnea on exertion or syncope Respiratory/Chest Respiratory/Chest: Denies cough, shortness of breath at rest or shortness of breath with exertion Gastrointestinal Gastrointestinal: Denies constipation, diarrhea, nausea or vomiting Genitourinary Genitourinary: Denies dysuria Neurologic Neurologic: Reports disequilibrium, dizziness, vertigo and other Details: Head tremor ; Denies focal weakness, numbness or tremor(s) Psychiatric Psychiatric: Denies anxiety or depression Vital Signs Vital Signs Vital Signs: 12/03/24 01:55 12/03/24 01:58 12/03/24 02:13 Temperature 97.9 F 97.9 F Temperature Source Oral Oral Pulse Rate 84 85 Pulse Rate [Lying] 76 Pulse Rate [Sitting (for 1 minute prior to obtaining)] 71 Pulse Strength Respiratory Rate 19 H 14 Blood Pressure 185/77 H 185/77 H Blood Pressure [Lying] 169/71 H Blood Pressure [Sitting (for 1 minute prior to obtaining)] 176/91 H Blood Pressure Mean 113 113 Blood Pressure Mean [Lying] 103 Blood Pressure Mean [Sitting (for 1 minute prior to obtaining)] 119 Blood Pre (more content not included)... Normal [facility] Hematocrit Auto (Bld) [Volum e fraction]Ordered By: Irvin Frank on 12-03-2024 Hematocrit (Bld) [Volume fraction] 41.4 % 37-[address] [facility] Hemoglobin measurementOrdere d By: Irvin Frank on 12-03-2024 Hemoglobin (Bld) [Mass/Vol] 13.9 g/dL 12.0-15.[address] [facility] Immature granulocytes/100 WB C Auto (Bld)Ordered By: Irvin Frank on 12-03-2024 Immature granulocytes/100 WBC (Bld) 0.100 % 0.0-0.[address] [facility] Comment on above: IG% - Immature Granu locytes (promyelocytes, myelocytes and metamyelocytes) > 1% indicates that a LEFT SHIFT is Present. Ketones Test strip Ql (U)Ord ered By: Irvin Frank on 12-03-2024 Ketones Ql (U) Negative Negative [facility] MCV (mean corpuscular volume ) determinationOrdered By: Irvin Frank on 12-03-2024 MCV (RBC) [Entitic vol] 93.5 fL 81-99 [facility] Magnesiumon 12-03-2024 Magnesium [Mass/Vol] 2.1 mg/dL Normal 1.6-2.6 [facility] Comment on above: Performed By: #### L 100.0100, L500.2500, L501.5200 ####[facility] [id number] [place], [address] Magnesium measurementOrdered By: Irvin Frank on 12-03-2024 Magnesium [Mass/Vol] 2.1 mg/dL 1.6-2.6 [facility] Mean corpuscular hemoglobin (MCH) determinationOrdered By: Irvin Frank on 12-03-2024 MCH (RBC) [Entitic mass] 31.4 pg 27.0-32.[address] [facility] Mean corpuscular hemoglobin concentration (MCHC) determinationOrdered By: Irvin Frank on 12-03-2024 MCHC (RBC) [Mass/Vol] 33.6 g/dL 32-36 [facility] Mean platelet volume determi nationOrdered By: Irvin Frank on 12-03-2024 Platelet mean volume (Bld) [Entitic vol] 10.0 fL 6.2-12.[address] [facility] Microscopic analysis of urin e for red blood cells (RBC)Ordered By: Irvin Frank on 12-03-2024 Microscopic analysis of urine for red blood cells (RBC) 0-5 SEEN /hpf 0-[address] [facility] Monocyte percentageOrdered B y: Irvin Frank on 12-03-2024 Monocytes/100 WBC (Bld) 6.9 % 0-10 [facility] Mucus LM Ql (Urine sed)Order ed By: Irvin Frank on 12-03-2024 Mucus Ql (Urine sed) 0 SEEN /hpf [facility] Neutrophil percentageOrdered By: Irvin Frank on 12-03-2024 Neutrophils/100 WBC (Bld) 36.1 % Low 47-[address] [facility] Nitrite Test strip Ql (U)Ord ered By: Irvin Frank on 12-03-2024 Nitrite Ql (U) Negative Negative [facility] Nucleated red blood cell per centageOrdered By: Irvin Frank on 12-03-2024 Nucleated RBC/100 WBC (Bld) [Ratio] 0 % 0-[address] [facility] Platelet countOrdered By: Nataliia Frank on 12-03-2024 Platelets (Bld) [#/Vol] 252 10*3/uL 150-[address] [facility] Potassium measurementOrdered By: Irvin Frank on 12-03-2024 Potassium [Moles/Vol] 4.0 mmol/L 3.5-5.1 [facility] Protein Test strip Ql (U)Ord ered By: Irvin Frank on 12-03-2024 Protein Ql (U) Negative Negative [facility] RBC Auto (Bld) [#/Vol]Ordere d By: Irvin Frank on 12-03-2024 RBC (Bld) [#/Vol] 4.43 10*6/uL 4.2-5.4 [facility] Serum anion gap measurementO rdered By: Irvin Frank on 12-03-2024 Anion gap [Moles/Vol] 6 mmol/L 5-15 [facility] Serum or plasma calcium helder urement (mass/volume)Ordered By: Irvin Frank on 12-03-2024 Calcium [Mass/Vol] 9.3 mg/dL 8.5-10.1 [facility] Serum or plasma creatinine m easurement (mass/volume)Ordered By: Irvin Frank on 12-03-2024 Creatinine [Mass/Vol] 0.96 mg/dL 0.55-1.02 [facility] Comment on above: The validity of the calculated GFR & GFRAA in patients over 70 years has not been determined. Clinical correlation is essential. Serum or plasma thyroid stim ulating hormone (TSH) measurement (units/volume)Ordered By: Armin Georges on 12-03-2024 TSH Qn 7.420 uIU/mL High 0.358-3.[address] [facility] Serum or plasma urea nitroge n measurement (mass/volume)Ordered By: Irvin Frank on 12-03-2024 Urea nitrogen [Mass/Vol] 22 mg/dL High 7-[address] [facility] Sodium levelOrdered By: Neptali Frank on 12-03-2024 Sodium [Moles/Vol] 140 mmol/L 136-145 [facility] Squamous epithelial cells de tection in urine sediment by light microscopyOrdered By: Irvin Frank on 12-03-2024 Epithelial cells.squamous LM Ql (Urine sed) 0 SEEN /hpf 5-[address] [facility] Thyroid Stim Hormone (TSH)on 12-03-2024 TSH 7.420 uIU/mL High 0.358-3.[address] [facility] Comment on above: Performed By: #### L 501.9520 #### [facility] Laboratory [address] [place], [address] Urinalysis, Completeon 12-03 RBC 0-5 SEEN Normal 0-[address] [facility] Comment on above: Order Comment: JOY CTOR TO SPECIFY Performed By: #### L 400.0001 #### [facility] [address] [place], [address] BACTERIA 0 SEEN Normal None Seen [facility] Comment on above: Order Comment: COLLE CTOR TO SPECIFY Performed By: #### L 400.0001 #### [facility] [address] [place], [address] EPI,SQUAMOUS 0 SEEN Normal 5-[address] [facility] Comment on above: Order Comment: COLLE CTOR TO SPECIFY Performed By: #### L 400.0001 #### [facility] [address] [place], [address] Mucus Ql (Urine sed) 0 SEEN Normal [facility] Comment on above: Order Comment: JOY CTOR TO SPECIFY Performed By: #### L 400.0001 #### [facility] [address] [place], [address] WBC 0 SEEN Normal 0-[address] [facility] Comment on above: Order Comment: JOY CTOR TO SPECIFY Performed By: #### L 400.0001 #### [facility] [address] [place], [address] Urine clarityOrdered By: Marcellus Frank on 12-03-2024 Clarity (U) Clear Clear [facility] Urine color determinationOrd ered By: Irvin Frank on 12-03-2024 Color (U) Yellow Yellow [facility] Urine glucose detectionOrder ed By: Irvin Frank on 12-03-2024 Glucose Ql (U) Normal mg/dl Normal [facility] Urine leukocyte esterase det ection by dipstickOrdered By: Irvin Frank on 12-03-2024 Leukocyte esterase Test strip Ql (U) Negative Negative [facility] Urine pHOrdered By: Irvin elaine on 12-03-2024 pH (U) 7.0 [pH] 5.0 - 8.[address] [facility] Urine sediment bacteria coun t by microscopy (number/high power field)Ordered By: Irvin Frank on 12-03-2024 Bacteria LM.HPF (Urine sed) [#/Area] 0 /[HPF] None Seen [facility] Urine specific gravity measu rementOrdered By: Irvin Frank on 12-03-2024 Specific gravity (U) [Rel density] 1.010 1.002-1.[address] [facility] Urine urobilinogen measureme ntOrdered By: Irvin Frank on 12-03-2024 Urobilinogen Ql (U) Normal mg/dl Normal [facility] White blood cell (WBC) count Ordered By: Irvin Frank on 12-03-2024 WBC (Bld) [#/Vol] 7.8 10*3/uL 4.4-11.0 [facility] White blood cell countOrdere d By: Irvin Frank on 12-03-2024 White blood cell count 0 SEEN /hpf 0-5 [facility] CNOVon 10-06-2024 CNOV Office Visit (INTMWS ) DAISY FERNANDEZ ([id number]) 1945 F Date Time Provider Department 10/06/24 9:00 AM CARMELA WISDOM INTMWS During your visit today, we recorded the following information about you: Temperature Pulse Respiration Blood pressure 97.6 degrees 64/minute 16/minute 121/70 Weight 83.7 kg Carmela Wisdom MD 10/06/2024 10:12 AM Signed This note was created using Twyxtriter. Subjective Daisy Fernandez is a 79 year old female. Patient presents with: F/U 6 months: Labs prior SUBJECTIVE: Daisy Fernandez is a 79 year old year old lady here today for 6 month follow up appointment for review of medical conditions. Daisy Fernandez is an 79-year-old female, with a history of hypercholesterolemia and hypothyroidism, presenting for a regular 6-month follow-up visit. Daisy reports feeling well and denies any current health concerns. She notes mild swelling in the medial aspect of her ankle, which is not painful. She has tried wearing compression socks but found some to be too tight. Recent lab results were reviewed, including a comprehensive metabolic panel, CBC, lipid panel, and thyroid function tests. All results were within normal limits. Daisy's LDL cholesterol was 86 mg/dL, and her TSH was 4.090 microIU/mL. Vitamin D levels were also reported as normal. Daisy is currently taking multiple medications, including Lipitor, levothyroxine 25 mcg, lisinopril, and verapamil. She reports no issues with her medications and confirms that her prescriptions are filled at [facility]. She notes that her medications are dispensed in a 90-day supply but are not synchronized, leading to scattered refill dates. She has experienced issues with mail-order prescriptions in the past and prefers to apple picker her medications locally. 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 Jodran King--derm) Internal hemorrhoids without mention of complication Obesity, unspecified Osteoarthrosis, unspecified whether generalized or localized, other specified sites Osteoarthritis TSH elevation 03/08/2016 no symptoms of hypothyroidism Variants of migraine, not elsewhere classified, without mention of intractable migraine without mention of status migrainosus Current Outpatient Medications Medication Sig atorvastatin (LIPITOR) 20 mg tablet Take 1 tablet by mouth every morning. For cholesterol. verapamil SR (CALAN SR) 240 mg CR tablet Take 1 tablet by mouth once daily. tolterodine (DETROL) 2 mg tablet Take 1 tablet by mouth once daily. lisinopril (ZESTRIL) 10 mg tablet Take 1 tablet by mouth once daily. levothyroxine (SYNTHROID) 25 mcg tablet Take 1 tablet by mouth once daily. Take on empty stomach. For thyroid. Cholecalciferol, Vitamin D3, 2,000 unit cap Take 2 tablets by mouth once daily. CRANBERRY EXTRACT (CRANBERRY CONCENTRATE ORAL) Take by mouth. ASPIRIN 81 MG ORAL TAB Take 81 mg by mouth. Two tablets daily for 30 days post op, surgery 09/11 No current facility-administered medications for this visit. minute visit was spent counseling about above issues. Carmela Wisdom MD Review of Systems Objective BP 121/70 Pulse 64 Temp 36.4 ?C (97.6 ?F) Resp 16 Wt 83.7 kg (184 lb 8.4 oz) SpO2 97% Physical Exam Constitutional: Appearance: Normal appearance. HENT: Head: Normocephalic. Eyes: Conjunctiva/sclera: Conjunctivae normal. Cardiovascular: Rate and Rhythm: Normal rate and regular rhythm. Heart sounds: Normal heart sounds. Pulmonary: Effort: Pulmonary effort is normal. Breath sounds: Normal breath sounds. Musculoskeletal: Right lower leg: Edema (doughy edema; medial ankle noted) present. Left lower leg: Edema (mild) present. Skin: General: Skin is warm and dry. Neurological: General: No focal deficit present. Mental Status: She is alert and oriented to person, place, and time. Psychiatric: Mood and Affect: Mood normal. Behavior: Behavior normal. Thought Content: Thought content normal. Judgment: Judgment normal. Latest Ref Rng 09/10/2023 11/21/2023 09/30/2024 Protein, Total 6.3 - 8.0 g/dL 7.0 6.8 Albumin 3.9 - 4.9 g/dL 4.2 4.2 Calcium 8.5 - 10.2 mg/dL 9.8 9.7 Bilirubin, Total 0.2 - 1.3 mg/dL 0.4 0.5 Alkaline Phosphatase 34 - 123 U/L 68 64 AST 13 - 35 U/L 18 23 ALT 7 - 38 U/L 11 14 Glucose 74 - 99 mg/dL 87 90 BUN 7 - 21 mg/dL 17 19 Creatinine 0.58 - 0.96 mg/dL 0.88 0.83 Sodium 136 - 144 mmol/L 140 143 Potassium 3.7 - 5.1 mmol/L 4.4 4.4 Chloride 98 - 107 mmol/L 104 105 CO2 22 - 30 mmol/L 27 24 Anion Gap 8 - 15 mmol/L 9 14 eGFR >=60 mL/min/1.73m? 67 71 WBC 3.70 - 11.00 k/uL 3.89 4.31 RBC 3.90 - 5.20 m/uL 4.32 4.37 Hemog (more content not included)... Normal [facility] 25(OH)D3 [facility] 2023 25-hydroxyvitamin D3 [Mass/Vol] 76.8 ng/mL Normal 31.0-80.0 [facility] Comment on above: Order Comment: Speci men Type: BLOOD SPECIMEN Ordering Facility: [facility] Address: [address] [place] [address] Result Comment: Clas sification of 25 OH Vitamin D status: Deficiency/Insufficiency: < or = 30 ng/ml. Sufficiency/Optimal Levels: 31-80 ng/mL Toxicity: > 100 ng/mL. Test performed by chemiluminescent immunoassay. Performed By: #### 1 989-3 #### [facility] CLIA [id number] [address] [place] [address] [id number], [place] [address] [place] CBC panel Auto (Bld)on 09-30 Erythrocyte distribution width (RBC) [Ratio] 13.2 % Normal 11.5-15.0 [facility] Comment on above: Order Comment: Speci men Type: BLOOD SPECIMEN Ordering Facility: [facility] Address: [address] [place] [address] Performed By: #### 5 8410-2 #### [facility] CLIA [id number] [address] [place] [address] [place] Hematocrit (Bld) [Volume fraction] 42.3 % Normal 36.0-46.0 [facility] Comment on above: Order Comment: Speci men Type: BLOOD SPECIMEN Ordering Facility: [facility] Address: [address] [place] [address] Performed By: #### 5 8410-2 #### [facility] CLIA [id number] [address] [place] [address] [place] Hemoglobin (Bld) [Mass/Vol] 13.9 g/dL Normal 11.5-15.5 [facility] Comment on above: Order Comment: Speci men Type: BLOOD SPECIMEN Ordering Facility: [facility] Address: [address] [place] [address] Performed By: #### 5 8410-2 #### [facility] CLIA [id number] [address] [place] [address] [place] MCH (RBC) [Entitic mass] 31.8 pg Normal 26.0-34.0 [facility] Comment on above: Order Comment: Speci men Type: BLOOD SPECIMEN Ordering Facility: [facility] Address: [address] [place] [address] Performed By: #### 5 8410-2 #### [facility] CLIA [id number] [address] [place] [address] [place] MCHC (RBC) [Mass/Vol] 32.9 g/dL Normal 30.5-36.0 [facility] Comment on above: Order Comment: Speci men Type: BLOOD SPECIMEN Ordering Facility: [facility] Address: [address] [place] [address] Performed By: #### 5 8410-2 #### [facility] CLIA [id number] [address] [place] [address] [place] MCV (RBC) [Entitic vol] 96.8 fL Normal 80.0-100.0 [facility] Comment on above: Order Comment: Speci men Type: BLOOD SPECIMEN Ordering Facility: [facility] Address: [address] [place] [address] Performed By: #### 5 8410-2 #### [facility] CLIA [id number] [address] [place] [address] [place] Nucleated RBC (Bld) [#/Vol] 10*3/uL Normal <0.01 [facility] Comment on above: Order Comment: Speci men Type: BLOOD SPECIMEN Ordering Facility: [facility] Address: [address] [place] [address] Performed By: #### 5 8410-2 #### [facility] CLIA [id number] [address] [place] [address] [place] Platelet mean volume (Bld) [Entitic vol] 10.0 fL Normal 9.0-12.7 [facility] Comment on above: Order Comment: Speci men Type: BLOOD SPECIMEN Ordering Facility: [facility] Address: [address] [place] [address] Performed By: #### 5 8410-2 #### [facility] CLIA [id number] [address] [place] [address] [place] Platelets (Bld) [#/Vol] 239 10*3/uL Normal 150-400 [facility] Comment on above: Order Comment: Speci men Type: BLOOD SPECIMEN Ordering Facility: [facility] Address: [address] [place] [address] Performed By: #### 5 8410-2 #### [facility] CLIA [id number] [address] [place] [address] [place] RBC (Bld) [#/Vol] 4.37 10*6/uL Normal 3.90-5.20 [facility] Comment on above: Order Comment: Speci men Type: BLOOD SPECIMEN Ordering Facility: [facility] Address: [address] [place] [address] Performed By: #### 5 8410-2 #### [facility] CLIA [id number] [address] [place] [address] [place] WBC (Bld) [#/Vol] 4.31 10*3/uL Normal 3.70-11.00 [facility] Comment on above: Order Comment: Speci men Type: BLOOD SPECIMEN Ordering Facility: [facility] Address: [address] [place] [address] Performed By: #### 5 8410-2 #### [facility] CLIA [id number] [address] [place] [address] [place] Comprehensive metabolic 2000 panelon 09-30-2024 Albumin [Mass/Vol] 4.2 g/dL Normal 3.9-4.9 [facility] Comment on above: Order Comment: Speci men Type: BLOOD SPECIMEN Ordering Facility: [facility] Address: [address] [place] [address] Performed By: #### 3 024-7, 64952-9, 98517-1, 3051-0 #### [facility] CLIA [id number] [address] [place] [address] [place] ALP [Catalytic activity/Vol] 64 U/L Normal 34-123 [facility] Comment on above: Order Comment: Speci men Type: BLOOD SPECIMEN Ordering Facility: [facility] Address: [address] [place] [address] Performed By: #### 3 024-7, 26424-4, 41746-2, 3051-0 #### [facility] CLIA [id number] [address] [place] [address] [place] ALT [Catalytic activity/Vol] 14 U/L Normal 7-38 [facility] Comment on above: Order Comment: Speci men Type: BLOOD SPECIMEN Ordering Facility: [facility] Address: [address] [place] [address] Performed By: #### 3 024-7, 02442-7, 99528-4, 305-0 #### [facility] CLIA [id number] [address] [place] [address] [place] Anion gap [Moles/Vol] 14 mmol/L Normal 8-15 [facility] Comment on above: Order Comment: Speci men Type: BLOOD SPECIMEN Ordering Facility: [facility] Address: [address] [place] [address] Performed By: #### 3 024-7, 50726-7, 74116-0, 305-0 #### [facility] CLIA [id number] [address] [place] [address] [place] AST [Catalytic activity/Vol] 23 U/L Normal 13-35 [facility] Comment on above: Order Comment: Speci men Type: BLOOD SPECIMEN Ordering Facility: [facility] Address: [address] [place] [address] Performed By: #### 3 024-7, 64531-6, 40132-2, 305-0 #### [facility] CLIA [id number] [address] [place] [address] [place] Bilirubin [Mass/Vol] 0.5 mg/dL Normal 0.2-1.3 [facility] Comment on above: Order Comment: Speci men Type: BLOOD SPECIMEN Ordering Facility: [facility] Address: [address] [place] [address] Performed By: #### 3 024-7, 49459-7, 78279-8, 3051-0 #### [facility] CLIA [id number] [address] [place] [address] [place] Calcium [Mass/Vol] 9.7 mg/dL Normal 8.5-10.2 [facility] Comment on above: Order Comment: Speci men Type: BLOOD SPECIMEN Ordering Facility: [facility] Address: [address] [place] [address] Performed By: #### 3 024-7, 41595-9, 26570-9, 305-0 #### [facility] CLIA [id number] [address] [place], [place] [address] [place] Chloride [Moles/Vol] 105 mmol/L Normal 98-107 [facility] Comment on above: Order Comment: Speci men Type: BLOOD SPECIMEN Ordering Facility: [facility] Address: [address] [place] [address] Performed By: #### 3 024-7, 78876-7, 03740-4, 305-0 #### [facility] CLIA [id number] [address] [place], [place] [address] [place] CO2 [Moles/Vol] 24 mmol/L Normal 22-30 [facility] Comment on above: Order Comment: Speci men Type: BLOOD SPECIMEN Ordering Facility: [facility] Address: [address] [place] [address] Performed By: #### 3 024-7, 23338-3, 84208-5, 305-0 #### [facility] CLIA [id number] [address] [place] [address] [place] Creatinine [Mass/Vol] 0.83 mg/dL Normal 0.58-0.96 [facility] Comment on above: Order Comment: Speci men Type: BLOOD SPECIMEN Ordering Facility: [facility] Address: [address] [place] [address] Performed By: #### 3 024-7, 78835-5, 60535-1, 3051-0 #### [facility] CLIA [id number] [address] [place] [address] [place] Creatinine and Glomerular filtration rate.predicted panel (S/P/Bld) 71 mL/min/1.73m??? Normal >=60 [facility] Comment on above: Order Comment: Lalo cruz Type: BLOOD SPECIMEN Ordering Facility: [facility] Address: [address] [place] [address] Result Comment: Cheryl mated Glomerular Filtration Rate (eGFR) is calculated using the 2020 CKD-EPI creatinine equation. This equation utilizes serum creatinine, sex, and age as parameters. The creatinine assay has traceable calibration to isotope dilution-mass spectrometry. Refer to KDIGO guidelines for clinical interpretation. In patients with unstable renal function, e.g. those with acute kidney injury, the eGFR may not accurately reflect actual GFR. Performed By: #### 3 024-7, 31169-7, 00015-3, 3051-0 #### [facility] CLIA [id number] [address] [place] [address] [place] Glucose [Mass/Vol] 90 mg/dL Normal 74-99 [facility] Comment on above: Order Comment: Lalo cruz Type: BLOOD SPECIMEN Ordering Facility: [facility] Address: [address] [place] [address] Result Comment: The [place] [employer] (ADA) provides guidance for cutoff values for fasting glucose and random glucose. The ADA defines fasting as no caloric intake for at least 8 hours. Fasting plasma glucose results between 100 to 125 mg/dL indicate increased risk for diabetes (prediabetes). Fasting plasma glucose results greater than or equal to 126 mg/dL meet the criteria for diagnosis of diabetes. In the absence of unequivocal hyperglycemia, results should be confirmed by repeat testing. In a patient with classic symptoms of hyperglycemia or hyperglycemic crisis, random plasma glucose results greater than or equal to 200 mg/dL meet the criteria for diagnosis of diabetes. Reference: Standards of Medical Care in Diabetes 2016, [place] [employer]. Diabetes Care. 2016.39(Suppl 1). Performed By: #### 3 024-7, 77056-6, 76801-8, 3051-0 #### [facility] CLIA [id number] [address] [place] [address] [place] Potassium [Moles/Vol] 4.4 mmol/L Normal 3.7-5.1 [facility] Comment on above: Order Comment: Speci men Type: BLOOD SPECIMEN Ordering Facility: [facility] Address: [address] [place] [address] Performed By: #### 3 024-7, 15240-3, 04089-0, 3051-0 #### [facility] CLIA [id number] [address] [place] [address] [place] Protein [Mass/Vol] 6.8 g/dL Normal 6.3-8.0 [facility] Comment on above: Order Comment: Speci men Type: BLOOD SPECIMEN Ordering Facility: [facility] Address: [address] [place] [address] Performed By: #### 3 024-7, 76811-5, 05930-7, 3051-0 #### [facility] CLIA [id number] [address] [place] [address] [place] Sodium [Moles/Vol] 143 mmol/L Normal 136-144 [facility] Comment on above: Order Comment: Speci men Type: BLOOD SPECIMEN Ordering Facility: [facility] Address: [address] [place] [address] Performed By: #### 3 024-7, 26512-5, 21625-5, 305-0 #### [facility] CLIA [id number] [address] [place] [address] [place] Urea nitrogen [Mass/Vol] 19 mg/dL Normal 7-21 [facility] Comment on above: Order Comment: Speci men Type: BLOOD SPECIMEN Ordering Facility: [facility] Address: [address] [place] [address] Performed By: #### 3 024-7, 91663-4, 26658-6, 3051-0 #### [facility] CLIA [id number] [address] [place] [address] [place] Lipid 1996 panelon 4 Cholesterol [Mass/Vol] 164 mg/dL Normal <200 [facility] Comment on above: Order Comment: Lalo cruz Type: BLOOD SPECIMEN Ordering Facility: [facility] Address: [address] [place] [address] Result Comment: <200 mg/dL, Desirable 200-239 mg/dL, Borderline high >239 mg/dL, High Performed By: #### 3 024-7, 73346-4, 94479-5, 3051-0 #### [facility] CLIA [id number] [address] [place] [address] [place] Cholesterol in HDL [Mass/Vol] 68 mg/dL Normal >39 [facility] Comment on above: Order Comment: Lalo cruz Type: BLOOD SPECIMEN Ordering Facility: [facility] Address: [address] [place] [address] Result Comment: 40-5 9 mg/dL, Acceptable >59 mg/dL, High: Negative risk factor for coronary heart disease <40 mg/dL, Low: Positive risk factor for coronary heart disease Performed By: #### 3 024-7, 34190-9, 67421-6, 3051-0 #### [facility] CLIA [id number] [address] [place] [address] [place] Cholesterol in LDL [Mass/Vol] 86 mg/dL Normal <100 [facility] Comment on above: Order Comment: Lalo men Type: BLOOD SPECIMEN Ordering Facility: [facility] Address: [address] [place] [address] Result Comment: <100 mg/dL, Optimal 100-129 mg/dL, Near optimal/above optimal 130-159 mg/dL, Borderline high 160-189 mg/dL, High >189 mg/dL, Very high Secondary prevention optimal LDL Cholesterol levels are recommended to be < 70 mg/dL Performed By: #### 3 024-7, 70751-9, 32451-5, 3051-0 #### [facility] CLIA [id number] [address] [place] [address] [place] Cholesterol in LDL/Cholesterol in HDL [Mass ratio] 1.26 {ratio} Normal <2.54 [facility] Comment on above: Order Comment: Lalo cruz Type: BLOOD SPECIMEN Ordering Facility: [facility] Address: [address] [place] [address] Result Comment: Jean ferrari: 1. National Cholesterol Education Program ATP III Guideline At-A-Glance Quick Desk Reference: National Heart, Lung, and Blood Check. National Institutes of Health. 2001: NIH Publication No. 01-3305. 2. An International Atherosclerosis Society position paper: global recommendations for the management of dyslipidemia: executive summary, Atherosclerosis. 2014: 232(2):410-413. Performed By: #### 3 024-7, 28910-2, 16253-7, 3051-0 #### [facility] CLIA [id number] [address] [place] [address] [place] Cholesterol in VLDL [Mass/Vol] 10 mg/dL Normal <30 [facility] Comment on above: Order Comment: Lalo cruz Type: BLOOD SPECIMEN Ordering Facility: [facility] Address: [address] [place] [address] Performed By: #### 3 024-7, 18187-6, 06189-4, 3051-0 #### [facility] CLIA [id number] [address] [place] [address] [place] Cholesterol non HDL [Mass/Vol] 96 mg/dL Normal <130 [facility] Comment on above: Order Comment: Lalo cruz Type: BLOOD SPECIMEN Ordering Facility: [facility] Address: [address] [place] [address] Result Comment: <130 mg/dL, Optimal 130-159 mg/dL, Near optimal/above optimal 160-189 mg/dL, Borderline high 190-219 mg/dL, High >219 mg/dL, Very high Secondary prevention optimal non HDL Cholesterol levels are recommended to be <100 mg/dL Performed By: #### 3 024-7, 51652-4, 63289-2, 3051-0 #### [facility] CLIA [id number] [address] [place] [address] [place] Cholesterol.total/Connie sterol in HDL [Mass ratio] 2.41 {ratio} Normal <5.10 [facility] Comment on above: Order Comment: Speci men Type: BLOOD SPECIMEN Ordering Facility: [facility] Address: [address] [place] [address] Performed By: #### 3 024-7, 04733-8, 76093-5, 3051-0 #### [facility] CLIA [id number] [address] [place] [address] [place] FASTING TIME 13 hrs Normal [facility] Comment on above: Order Comment: Speci men Type: BLOOD SPECIMEN Ordering Facility: [facility] Address: [address] [place] [address] Performed By: #### 3 024-7, 60210-0, 76306-2, 305-0 #### [facility] CLIA [id number] [address] [place] [address] [place] Triglyceride [Mass/Vol] 49 mg/dL Normal <150 [facility] Comment on above: Order Comment: Speci men Type: BLOOD SPECIMEN Ordering Facility[facility] Address: [address] [place] [address] Result Comment: <150 mg/dL, Normal 150-199 mg/dL, Borderline high 200-499 mg/dL, High >499 mg/dL, Very high Performed By: #### 3 024-7, 42315-5, 34193-5, 3051-0 #### [facility] CLIA [id number] [address] [place] [address] [place] T3Free SerPl-mCncon 09-30-20 24 Free T3 [Mass/Vol] 2.9 pg/mL Normal 2.3-4.1 [facility] Comment on above: Order Comment: Speci men Type: BLOOD SPECIMEN Ordering Facility[facility] Address: [address] [place] [address] Performed By: #### 3 024-7, 20678-5, 17220-1, 3051-0 #### [facility] CLIA [id number] [address] [place] [address] [place] T4 Free SerPl-mCncon 024 Free T4 [Mass/Vol] 1.1 ng/dL Normal 0.9-1.7 [facility] Comment on above: Order Comment: Speci men Type: BLOOD SPECIMEN Ordering Facility: [facility] Address: [address] [place] [address] Performed By: #### 3 024-7, 17011-8, 95250-4, 305-0 #### [facility] CLIA [id number] [address] [place] [address] [place] TSH SerPl-aCncon 09-30-2024 TSH Qn 4.090 m[IU]/L Normal 0.270-4.200 [facility] Comment on above: Order Comment: Speci men Type: BLOOD SPECIMEN Ordering Facility[facility] Address: [address] [place] [address] Performed By: #### 5 8410-2 #### [facility] CLIA [id number] [address] [place] [address] [place] STREP A MOLECULAR (POC)on Procedural Control Valid [facility] Strep A (POCT) Negative Negative [facility] Absolute lymphocyte countOrd ered By: Marino Camara on 09-11-2023 Lymphocytes Auto (Unsp spec) [#/Vol] 1.64 10*3/uL 0.83-4.[address] [facility] Basophil percentageOrdered B y: Marino Camara on 09-11-2023 Basophils/100 WBC (Bld) 0.7 % 0-1 [facility] Chloride [Moles/Vol] 108 mmol/L 98-[facility] Eosin[facility]/100 WBC (Bld) 3.9 % 0-[address] [facility] Glucose [Mass/Vol] 98 mg/dL 74-106 [facility] Neutrophils (Bld) [#/Vol] 1.9 10*3/uL 2.0-7.[address] [facility] Neutrophils/100 WBC (Bld) 45.7 % 47-[address] [facility] Potassium [Moles/Vol] 4.3 mmol/L 3.5-5.1 [facility] Sodium [Moles/Vol] 141 mmol/L 136-145 [facility] WBC (Bld) [#/Vol] 4.1 10*3/uL 4.4-11.0 [facility] Blood erythrocytes count (nu mber/volume)Ordered By: Marino Camara on 09-11-2023 RBC (Bld) [#/Vol] 4.49 10*6/uL 4.2-5.4 [facility] Blood hemoglobin measurement (mass/volume)Ordered By: Marino Camara on 09-11-2023 Hemoglobin (Bld) [Mass/Vol] 14.2 g/dL 12.0-15.[address] [facility] Blood lymphocytes/100 leukoc ytesOrdered By: Marino Camara on 09-11-2023 Lymphocytes/100 WBC (Bld) 40.4 % 19-[address] [facility] Blood monocytes/100 leukocyt esOrdered By: Marino Camara on 09-11-2023 Monocytes/100 WBC (Bld) 9.1 % 0-10 [facility] Blood platelet mean volumeOr dered By: Marino Camara on 09-11-2023 Platelet mean volume (Bld) [Entitic vol] 9.9 fL 6.2-12.[address] [facility] Determination of erythrocyte mean corpuscular volume (MCV)Ordered By: Marino Camara on 09-11-2023 MCV (RBC) [Entitic vol] 96.7 fL 81-99 [facility] Hematocrit Auto (Bld) [Volum e fraction]Ordered By: Marino Camara on 09-11-2023 Hematocrit (Bld) [Volume fraction] 43.4 % 37-[address] [facility] INR in Blood by Coagulation assayOrdered By: Marino Camara on 09-11-2023 INR Coag (Bld) [Relative time] 0.9 {INR} [facility] Laboratory - Chemistry and C hemistry - challengeOrdered By: Marino Camara on 09-11-2023 CO2 [Moles/Vol] 30.0 mmol/L 21.0-32.[address] [facility] Urea nitrogen/Creatinine [Mass ratio] 23.4 mg/mg 10-[address] [facility] Laboratory - CoagulationOrde red By: Marino Camara on 09-11-2023 aPTT Coag (Bld) [Time] 27.7 s 24.1-36.2 [facility] PT Coag (PPP) [Time] 12.6 s 11.7-14.9 [facility] Laboratory - Hematology and Cell countsOrdered By: Marino Camara on 09-11-2023 Erythrocyte distribution width (RBC) [Entitic vol] 47.1 fL 35.1-43.[address] [facility] Erythrocyte distribution width (RBC) [Ratio] 13.2 % 11.6-14.[address] [facility] Immature granulocytes/100 WBC (Bld) 0.200 % 0.0-0.[address] [facility] Comment on above: IG% - Immature Granu locytes (promyelocytes, myelocytes and metamyelocytes) > 1% indicates that a LEFT SHIFT is Present. MCH (RBC) [Entitic mass] 31.6 pg 27.0-32.[address] [facility] Nucleated RBC/100 WBC (Bld) [Ratio] 0 % 0-[address] [facility] MCHC Auto (RBC) [Mass/Vol]Or dered By: Marino Camara on 09-11-2023 MCHC (RBC) [Mass/Vol] 32.7 g/dL 32-36 [facility] No Panel InformationOrdered By: Marino Camraa on 09-11-2023 Estimated GFR (MDRD) Amer 82 mL/min >[address] [facility] Comment on above: GFR Calc Estimated GFR (MDRD) Non-Af Amer 68 mL/min >[address] [facility] Comment on above: Non- GFR Calc Platelets bldOrdered By: Demetrius Camara on 09-11-2023 Platelets (Bld) [#/Vol] 261 10*3/uL 150-[address] [facility] Serum or plasma calcium helder urement (mass/volume)Ordered By: Marino Camara on 09-11-2023 Calcium [Mass/Vol] 9.1 mg/dL 8.5-10.1 [facility] Serum or plasma creatinine m easurement (mass/volume)Ordered By: Marino Camara on 09-11-2023 Creatinine [Mass/Vol] 0.86 mg/dL 0.55-1.02 [facility] Comment on above: The validity of the calculated GFR & GFRAA in patients over 70 years has not been determined. Clinical correlation is essential. Serum or plasma urea nitroge n measurement (mass/volume)Ordered By: Marino Camara on 09-11-2023 Urea nitrogen [Mass/Vol] 20 mg/dL 7-[address] [facility] Thin prep Papanicolaou smear with manual screeningOrdered By: Marino Camara on 09-11-2023 Thin prep Papanicolaou smear with manual screening 3 5-[address] [facility] ECHOon 07-06-2023 [facility] Absolute lymphocyte countOrd ered By: Enrique Bedolla on 07-01-2023 Lymphocytes Auto (Unsp spec) [#/Vol] 2.27 10*3/uL 0.83-4.[address] [facility] Basophil percentageOrdered B y: Enrique Bedolla on 07-01-2023 Basophil percentage 0-5 SEEN /hpf 0-5 [facility] Basophils/100 WBC (Bld) 0.7 % 0-1 [facility] Chloride [Moles/Vol] 104 mmol/L 98-107 [facility] Eosinophils/100 WBC (Bld) 2.4 % 0-[address] [facility] Glucose [Mass/Vol] 91 mg/dL 74-106 [facility] Neutrophils (Bld) [#/Vol] 2.7 10*3/uL 2.0-7.[address] [facility] Neutrophils/100 WBC (Bld) 48.4 % 47-[address] [facility] Potassium [Moles/Vol] 4.1 mmol/L 3.5-5.1 [facility] Sodium [Moles/Vol] 139 mmol/L 136-145 [facility] WBC (Bld) [#/Vol] 5.5 10*3/uL 4.4-11.0 [facility] Bilirubin Test strip Ql (U)O rdered By: Enrique Bedolla on 07-01-2023 Bilirubin Ql (U) Negative Negative [facility] Blood erythrocytes count (nu mber/volume)Ordered By: Enrique Bedolla on 07-01-2023 RBC (Bld) [#/Vol] 4.77 10*6/uL 4.2-5.4 [facility] Blood hemoglobin measurement (mass/volume)Ordered By: Enrique Bedolla on 07-01-2023 Hemoglobin (Bld) [Mass/Vol] 14.8 g/dL 12.0-15.[address] [facility] Blood lymphocytes/100 leukoc ytesOrdered By: Enrique Bedolla on 07-01-2023 Lymphocytes/100 WBC (Bld) 41.2 % 19-[address] [facility] Blood monocytes/100 leukocyt esOrdered By: Enrique Bedolla on 07-01-2023 Monocytes/100 WBC (Bld) 7.1 % 0-10 [facility] Blood platelet mean volumeOr dered By: Enrique Bedolla on 07-01-2023 Platelet mean volume (Bld) [Entitic vol] 10.1 fL 6.2-12.[address] [facility] Determination of erythrocyte mean corpuscular volume (MCV)Ordered By: Enrique Bedolla on 07-01-2023 MCV (RBC) [Entitic vol] 96.0 fL 81-99 [facility] Glucose Glucometer (dC) [M ass/Vol]Ordered By: Enrique Bedolla on 07-01-2023 Glucose [Mass/Vol] 90 mg/dL 74-106 [facility] Comment on above: MANAGEMENT OF PATIEN T CARE PER NURSING PROTOCOL Hematocrit Auto (Bld) [Volum e fraction]Ordered By: Enrique Bedolla on 07-01-2023 Hematocrit (Bld) [Volume fraction] 45.8 % 37-[address] [facility] INR in Blood by Coagulation assayOrdered By: Enrique Bedolla on 07-01-2023 INR Coag (Bld) [Relative time] 0.9 {INR} [facility] Ketones Test strip Ql (U)Ord ered By: Enrique Bedolla on 07-01-2023 Ketones Ql (U) Negative Negative [facility] Laboratory - Chemistry and C hemistry - challengeOrdered By: Enrique Bedolla on 07-01-2023 CO2 [Moles/Vol] 28.0 mmol/L 21.0-32.[address] [facility] Urea nitrogen/Creatinine [Mass ratio] 24.7 mg/mg 10-[address] [facility] Laboratory - CoagulationOrde red By: Enrique Bedolla on 07-01-2023 aPTT Coag (Bld) [Time] 24.3 s 24.1-36.2 [facility] PT Coag (PPP) [Time] 12.2 s 11.7-14.9 [facility] Laboratory - Hematology and Cell countsOrdered By: Enrique Bedolla on 07-01-2023 Erythrocyte distribution width (RBC) [Entitic vol] 47.1 fL 35.1-43.[address] [facility] Erythrocyte distribution width (RBC) [Ratio] 13.2 % 11.6-14.[address] [facility] Immature granulocytes/100 WBC (Bld) 0.200 % 0.0-0.[address] [facility] Comment on above: IG% - Immature Granu locytes (promyelocytes, myelocytes and metamyelocytes) > 1% indicates that a LEFT SHIFT is Present. MCH (RBC) [Entitic mass] 31.0 pg 27.0-32.[address] [facility] Nucleated RBC/100 WBC (Bld) [Ratio] 0 % 0-[address] [facility] MCHC Auto (RBC) [Mass/Vol]Or dered By: Enrique Bedolla on 07-01-2023 MCHC (RBC) [Mass/Vol] 32.3 g/dL 32-36 [facility] Mucus LM Ql (Urine sed)Order ed By: Enrique Bedolla on 07-01-2023 Mucus Ql (Urine sed) 0 SEEN /hpf [facility] Nitrite Test strip Ql (U)Ord ered By: Enrique Bedolla on 07-01-2023 Nitrite Ql (U) Negative Negative [facility] No Panel InformationOrdered By: Enrique Bedolla on 07-01-2023 Thyroid Stimulating Hormone (TSH) 4.84 uIU/mL 0.358-3.[address] [facility] Troponin I High Sensitivity 6 pg/mL 3.0-54.[address] [facility] Comment on above: Please Note: New Yudelka t Units and Gender Specific Reference Ranges. For more information see Policy Stat Procedure Ace High Sensitivity Troponin (TNIH) and attachments. Estimated Creatinine Clearance Calc 46.59 ml/min [facility] Estimated GFR (MDRD) Amer 87 mL/min >[address] [facility] Comment on above: GFR Calc Estimated GFR (MDRD) Non-Af Amer 72 mL/min >[address] [facility] Comment on above: Non- GFR Calc Platelets bldOrdered By: Estefania Bedolla on 07-01-2023 Platelets (Bld) [#/Vol] 246 10*3/uL 150-[address] [facility] Protein Test strip Ql (U)Ord ered By: Enrique Bedolla on 07-01-2023 Protein Ql (U) Negative Negative [facility] Serum or plasma calcium helder urement (mass/volume)Ordered By: Enrique Bedolla on 07-01-2023 Calcium [Mass/Vol] 9.7 mg/dL 8.5-10.1 [facility] Serum or plasma creatinine m easurement (mass/volume)Ordered By: Enrique Bedolla on 07-01-2023 Creatinine [Mass/Vol] 0.81 mg/dL 0.55-1.02 [facility] Comment on above: The validity of the calculated GFR & GFRAA in patients over 70 years has not been determined. Clinical correlation is essential. Serum or plasma urea nitroge n measurement (mass/volume)Ordered By: Enrique Bedolla on 07-01-2023 Urea nitrogen [Mass/Vol] 20 mg/dL 7-[address] [facility] Squamous epithelial cells de tection in urine sediment by light microscopyOrdered By: Enrique Bedolla on 07-01-2023 Epithelial cells.squamous LM Ql (Urine sed) 0-5 SEEN /hpf 5-[address] [facility] Thin prep Papanicolaou smear with manual screeningOrdered By: Enrique Bedolla on 07-01-2023 Thin prep Papanicolaou smear with manual screening 7 5-[address] [facility] Urine blood detectionOrdered By: Enrique Bedolla on 07-01-2023 RBC Ql (U) 50 /ul Negative [facility] RBC Ql (U) 0-5 SEEN /hpf 0-[address] [facility] Urine clarityOrdered By: Estefania Bedolla on 07-01-2023 Clarity (U) Sl Cldy Clear [facility] Comment on above: Previous reported re sult: Clear Edited by: JOSE on 07/01/23:1823 Urine color determinationOrd ered By: Enrique Bedolla on 07-01-2023 Color (U) Yellow Yellow [facility] Urine glucose detectionOrder ed By: Enrique Bedolla on 07-01-2023 Glucose Ql (U) Normal mg/dl Normal [facility] Urine leukocyte esterase det ection by dipstickOrdered By: Enrique Bedolla on 07-01-2023 Leukocyte esterase Test strip Ql (U) 25 /ul Negative [facility] Urine pHOrdered By: Enrique harvey on 07-01-2023 pH (U) 7.0 [pH] 5.0 - 8.[address] [facility] Urine sediment bacteria coun t by microscopy (number/high power field)Ordered By: Enrique Bedolla on 07-01-2023 Bacteria LM.HPF (Urine sed) [#/Area] 0 /[HPF] None Seen [facility] Urine specific gravity measu rementOrdered By: Enrique Bedolla on 07-01-2023 Specific gravity (U) [Rel density] 1.010 1.002-1.[address] [facility] Urobilinogen Auto test strip Ql (U)Ordered By: Enrique Bedolla on 07-01-2023 Urobilinogen Ql (U) Normal mg/dl Normal [facility] Clinical Summary: Jose agarwal 03-08-2022 MC75 OP Visit Invalid Interpretation Code [facility] Work Phone: Clinical Lists Update: Prelo ad Extendedon 03-06-2022 Tobacco smoking status Tobacco smoking status In valid Interpretation Code [facility] Work Phone: Clinical Summary: Scanned Hi story Summaryon 03-05-2022 cause of , father congestive heart failure Invalid Interpretation Code [facility] Work Phone: cause of , mother heart attack Invalid Interpretation Code [facility] Work Phone: comments about allergies prilosec Invalid Interpretation Code [facility] Work Phone: Data entered by patient exercise frequency 3 days per week Invalid Interpretation Code [facility] Work Phone: Data entered by patient exercise type walking Invalid Interpretation Code [facility] Work Phone: data entered by patient, alcohol (ethanol or ETOH) use No Invalid Interpretation Code [facility] Work Phone: Data entered by patient, allergy list Sulfa drugs Invalid Interpretation Code [facility] Work Phone: data entered by patient, drug (of abuse) use No Invalid Interpretation Code [facility] Work Phone: data entered by patient, Employer Name retired Invalid Interpretation Code [facility] Work Phone: data entered by patient, exercise history Yes Invalid Interpretation Code [facility] Work Phone: Data entered by patient, history of past surgeries Cataract surgery Heart cath Tonsillectomy Invalid Interpretation Code [facility] Work Phone: Data entered by patient, medication list verapamil sr-240 mg-1-daily levothyroxine-25 mg-1-daily tolterodine-2 mg-1-daily cranberry concentrate-4200 mg-1-daily vitamin d3-50 mcg-2-daily aspirin-81 mg-1-daily Invalid Interpretation Code [facility] Work Phone: data entered by patient, mother's medical history Diabetes - insulin dependent High blood pressure Invalid Interpretation Code [facility] Work Phone: data entered by patient, past medical history High blood pressure Obesity Invalid Interpretation Code [facility] Work Phone: data entered by patient, social history, current smoker never smoker Invalid Interpretation Code [facility] Work Phone: data entered by patient, social history, marital status Invalid Interpretation Code [facility] Work Phone: father of patient is alive or Invalid Interpretation Code [facility] Work Phone: Housing Type: apartment, house, long term, trailer, none house Invalid Interpretation Code [facility] Work Phone: housing unit size (asthma environmental history, housing) (from single family to don't know) 1 floor Invalid Interpretation Code [facility] Work Phone: medical history of patient's brother(s) Diabetes - insulin dependent Invalid Interpretation Code [facility] Work Phone: medical history of patient's sister Cancer Invalid Interpretation Code [facility] Work Phone: medical history of patient's sister, comments 2 sisters one sister brain tumors one sister heart problems don't know other issues Invalid Interpretation Code [facility] Work Phone: mother of patient is alive or Invalid Interpretation Code [facility] Work Phone: Number of dependent children No Invalid Interpretation Code [facility] Work Phone: SARS-CoV-2 (COVID-19) Ab [place] Ql 3 brothers 1 living diabetic had a heart attack 2 brothers one heart attack one covid don't know other details Invalid Interpretation Code [facility] Work Phone: Vital Signs Date Time Vital Sign Value Performing Clinician Facility 04-08-2025 07:59-0400 Body height 162.6 cm Carmela Wisdom MD Work Phone: [facility] 04-08-2025 07:59-0400 Body mass index (BMI) [Ratio] 30.88 kg/m2 Carmela Wisdom MD Work Phone: [facility] 04-08-2025 07:59-0400 Body temperature 98.01 [degF] Carmela Wisdom MD Work Phone: [facility] 04-08-2025 07:59-0400 Body weight 81.6 kg Carmela Wisdom MD Work Phone: [facility] 04-08-2025 07:59-0400 Diastolic blood pressure 60 mm[Hg] Carmela Wisdom MD Work Phone: [facility] 04-08-2025 07:59-0400 Heart rate 73 /min Carmela Wisdom MD Work Phone: [facility] 04-08-2025 07:59-0400 Respiratory rate 14 /min Carmela Wisdom MD Work Phone: [facility] 04-08-2025 07:59-0400 SaO2% (BldA) [Mass fraction] 96 % Carmela Wisdom MD Work Phone: [facility] 04-08-2025 07:59-0400 Systolic blood pressure 124 mm[Hg] Carmela Wisdom MD Work Phone: [facility] 03-17-2025 11:09-0400 Body temperature 97.11 [degF] Kadeem Pendlebury DEDENTER.PASSENGER ELEVATOR OPERATOR Work Phone: [facility] 03-17-2025 11:09-0400 Body weight 81.8 kg Kadeem Pendlebury DEDENTER.PASSENGER ELEVATOR OPERATOR Work Phone: [facility] 03-17-2025 11:09-0400 Diastolic blood pressure 80 mm[Hg] Kadeem Pendlebury DEDENTER.PASSENGER ELEVATOR OPERATOR Work Phone: [facility] 03-17-2025 11:09-0400 Heart rate 78 /min Kadeem Pendlebury DEDENTER.PASSENGER ELEVATOR OPERATOR Work Phone: [facility] 03-17-2025 11:09-0400 Respiratory rate 16 /min Kadeem Pendlebury DEDENTER.PASSENGER ELEVATOR OPERATOR Work Phone: [facility] 03-17-2025 11:09-0400 SaO2% (BldA) [Mass fraction] 95 % Kadeem Pendlebury DEDENTER.PASSENGER ELEVATOR OPERATOR Work Phone: [facility] 03-17-2025 11:09-0400 Systolic blood pressure 124 mm[Hg] Kadeem Colladolauren DEDENTER.PASSENGER ELEVATOR OPERATOR Work Phone: [facility] 12-09-2024 07:24-0500 Diastolic blood pressure 81 mm[Hg] Patricia Shah DEDENTER.STEM LEAD FORMER Work Phone: [facility] 12-09-2024 07:24-0500 Heart rate 65 /min Patriciawilson Barreras DEDENTER.STEM LEAD FORMER Work Phone: [facility] 12-09-2024 07:24-0500 Systolic blood pressure 137 mm[Hg] Patricia Barreras DEDENTER.STEM LEAD FORMER Work Phone: [facility] 12-09-2024 07:23-0500 Body weight 83 kg Patriciawilson Barreras DEDENTER.STEM LEAD FORMER Work Phone: [facility] 12-09-2024 07:23-0500 Respiratory rate 16 /min Patricia Barreras DEDENTER.STEM LEAD FORMER Work Phone: [facility] 12-04-2024 13:50-0500 Body temperature 97.8 [degF] Dr. Carmela Wisdom MD Work Phone: [facility] 12-04-2024 13:50-0500 Diastolic blood pressure 70 mm[Hg] Dr. Carmela Wisdom MD Work Phone: [facility] 12-04-2024 13:50-0500 Heart rate 75 /min Dr. Carmela Wisdom MD Work Phone: [facility] 12-04-2024 13:50-0500 SaO2% (BldA) [Mass fraction] 96 % Dr. Carmela Wisdom MD Work Phone: [facility] 12-04-2024 13:50-0500 Systolic blood pressure 150 mm[Hg] Dr. Carmela Wisdom MD Work Phone: [facility] 12-04-2024 08:01-0500 Respiratory rate 11 /min Dr. Carmela Wisdom MD Work Phone: [facility] 12-03-2024 09:37-0500 Body height 160.[address] Carmela Wisdom MD Work Phone: [facility] 12-03-2024 09:37-0500 Body mass index (BMI) [Ratio] 32.4 kg/m2 Dr. Carmela Wisdom MD Work Phone: [facility] 12-03-2024 09:37-0500 Body weight [address] Carmela Wisdom MD Work Phone: [facility] 10-06-2024 09:08-0500 Body temperature 97.59 [degF] Carmela Wisdom MD Work Phone: [facility] 10-06-2024 09:08-0500 Body weight 83.7 kg Carmela Wisdom MD Work Phone: [facility] 10-06-2024 09:08-0500 Diastolic blood pressure 70 mm[Hg] Carmela Wisdom MD Work Phone: [facility] 10-06-2024 09:08-0500 Heart rate 64 /min Carmela Wisdom MD Work Phone: [facility] 10-06-2024 09:08-0500 Respiratory rate 16 /min Carmela Wisdom MD Work Phone: [facility] 10-06-2024 09:08-0500 SaO2% (BldA) [Mass fraction] 97 % Carmela Wisdom MD Work Phone: [facility] 10-06-2024 09:08-0500 Systolic blood pressure 121 mm[Hg] Carmela Wisdom MD Work Phone: [facility] 04-01-2024 08:01-0400 Body temperature 96.01 [degF] Carmela Wisdom MD Work Phone: [facility] 04-01-2024 08:01-0400 Body weight 81.65 kg Carmela Wisdom MD Work Phone: [facility] 04-01-2024 08:01-0400 Diastolic blood pressure 68 mm[Hg] Carmela Wisdom MD Work Phone: [facility] 04-01-2024 08:01-0400 Heart rate 70 /min Carmela Wisdom MD Work Phone: [facility] 04-01-2024 08:01-0400 Respiratory rate 18 /min Carmela Wisdom MD Work Phone: [facility] 04-01-2024 08:01-0400 SaO2% (BldA) [Mass fraction] 97 % Carmela Wisdom MD Work Phone: [facility] 04-01-2024 08:01-0400 Systolic blood pressure 118 mm[Hg] Caremla Wisdom MD Work Phone: [facility] 03-22-2024 08:34-0400 Body temperature 97.59 [degF] Jeremiah Moomaw DEDENTER.PASSENGER ELEVATOR OPERATOR Work Phone: [facility] 03-22-2024 08:34-0400 Body weight 83.7 kg Jeremiah Moomaw DEDENTER.PASSENGER ELEVATOR OPERATOR Work Phone: [facility] 03-22-2024 08:34-0400 Diastolic blood pressure 72 mm[Hg] Jeremiah Moomaw DEDENTER.PASSENGER ELEVATOR OPERATOR Work Phone: [facility] 03-22-2024 08:34-0400 Heart rate 74 /min Jeremiah Moomaw DEDENTER.PASSENGER ELEVATOR OPERATOR Work Phone: [facility] 03-22-2024 08:34-0400 Respiratory rate 18 /min Jeremiah Moomaw DEDENTER.PASSENGER ELEVATOR OPERATOR Work Phone: [facility] 03-22-2024 08:34-0400 SaO2% (BldA) [Mass fraction] 96 % Jeremiah Moomaw DEDENTER.PASSENGER ELEVATOR OPERATOR Work Phone: [facility] 03-22-2024 08:34-0400 Systolic blood pressure 150 mm[Hg] Jeremiah Moomaw DEDENTER.PASSENGER ELEVATOR OPERATOR Work Phone: [facility] 09-14-2023 07:13-0400 Body height 160.[address] Carmela Wisdom Work Phone: [facility] 09-14-2023 07:13-0400 Body weight 83.[address] Carmela Wisdom Work Phone: [facility] 08-13-2023 10:28-0400 Body height 160.[address] Carmela Wisdom Work Phone: [facility] 08-13-2023 10:28-0400 Body mass index (BMI) [Ratio] 32.2 kg/m2 Dr. Carmela Wisdom Work Phone: 8(179)287-842192 [place] [address] 08-13-2023 10:28-0400 Body weight 82.[address] Carmela Wisdom Work Phone: 8(775)238-057992 [place] [address] 08-13-2023 10:28-0400 Diastolic blood pressure 80 mm[Hg] Dr. Carmela Wisdom Work Phone: 5(558)359-498192 [place] [address] 08-13-2023 10:28-0400 Heart rate 62 /min Dr. Carmela Wisdom Work Phone: 2(049)180-620092 [place] [address] 08-13-2023 10:28-0400 Respiratory rate 16 /min Dr. Carmela Wisdom Work Phone: 1(699)[phone] [place] [address] 08-13-2023 10:28-0400 Systolic blood pressure 133 mm[Hg] Dr. Carmela Wisdom Work Phone: [facility] 07-10-2023 07:00-0400 Body weight 82.1 kg Patricia Shah DEDENTER.STEM LEAD FORMER Work Phone: [facility] 07-10-2023 07:00-0400 Diastolic blood pressure 72 mm[Hg] Patricia Shah DEDENTER.STEM LEAD FORMER Work Phone: [facility] 07-10-2023 07:00-0400 Heart rate 65 /min Patricia Shah DEDENTER.STEM LEAD FORMER Work Phone: [facility] 07-10-2023 07:00-0400 Respiratory rate 16 /min Patricia Shah DEDENTER.STEM LEAD FORMER Work Phone: [facility] 07-10-2023 07:00-0400 SaO2% (BldA) [Mass fraction] 95 % Patricia Shah DEDENTER.STEM LEAD FORMER Work Phone: [facility] 07-10-2023 07:00-0400 Systolic blood pressure 122 mm[Hg] Patricia Shah DEDENTER.STEM LEAD FORMER Work Phone: [facility] 07-03-2023 07:50-0400 Body weight 82.1 kg Patricia Shah DEDENTER.STEM LEAD FORMER Work Phone: [facility] 07-03-2023 07:50-0400 Diastolic blood pressure 71 mm[Hg] Patricia Shah DEDENTER.STEM LEAD FORMER Work Phone: [facility] 07-03-2023 07:50-0400 Heart rate 60 /min Patricia Shah DEDENTER.STEM LEAD FORMER Work Phone: [facility] 07-03-2023 07:50-0400 Respiratory rate 16 /min Patricia Shah DEDENTER.STEM LEAD FORMER Work Phone: [facility] 07-03-2023 07:50-0400 Systolic blood pressure 115 mm[Hg] Patricia Shah DEDENTER.STEM LEAD FORMER Work Phone: [facility] 07-01-2023 21:24-0400 Diastolic blood pressure 80 mm[Hg] [facility] 07-01-2023 21:24-0400 Heart rate 67 /min [facility] 07-01-2023 21:24-0400 Respiratory rate 17 /min [facility] 07-01-2023 21:24-0400 SaO2% (BldA) [Mass fraction] 98 % [facility] 07-01-2023 21:24-0400 Systolic blood pressure 150 mm[Hg] [facility] 07-01-2023 17:01-0400 Body mass index (BMI) [Ratio] 32.7 kg/m2 [facility] 07-01-2023 17:01-0400 Body weight 83.8 kg [facility] 07-01-2023 16:59-0400 Body height 160.02 cm [facility] 07-01-2023 16:59-0400 Body temperature 97.5 [degF] [facility] 03-21-2023 10:03-0400 Diastolic blood pressure 64 mm[Hg] Carmela Wisdom MD Work Phone: [facility] 03-21-2023 10:03-0400 Systolic blood pressure 138 mm[Hg] Carmela Wisdom MD Work Phone: [facility] 09-20-2022 10:34-0400 Body weight 86.18 kg Carmela Wisdom MD Work Phone: [facility] 09-20-2022 10:34-0400 Diastolic blood pressure 74 mm[Hg] Carmela Wisdom MD Work Phone: [facility] 09-20-2022 10:34-0400 Heart rate 67 /min Carmela Wisdom MD Work Phone: [facility] 09-20-2022 10:34-0400 SaO2% (BldA) [Mass fraction] 95 % Carmela Wisdom MD Work Phone: [facility] 09-20-2022 10:34-0400 Systolic blood pressure 128 mm[Hg] Carmela Wisdom MD Work Phone: [facility] 03-01-2022 09:05-0400 Body weight 85.73 kg Carmela Wisdom MD Work Phone: [facility] 03-01-2022 09:05-0400 Diastolic blood pressure 72 mm[Hg] Carmela Wisdom MD Work Phone: [facility] 03-01-2022 09:05-0400 Heart rate 78 /min Carmela Wisdom MD Work Phone: [facility] 03-01-2022 09:05-0400 Systolic blood pressure 128 mm[Hg] Carmela Wisdom MD Work Phone: [facility] NEGATED: Highlighted [id number] 09:13-0400 Body height 160.02 cm Mimi Carbone AT [facility] Work Phone: NEGATED: Highlighted [id number] 09: Body height 160 cm Mimi Carbone AT [facility] Work Phone: NEGATED: Highlighted [id number] Body mass index (BMI) [Ratio] 33.6 kg/m2 Mimi Carbone AT [facility] Work Phone: NEGATED: Highlighted [id number] 09:040 Body weight 85.73 kg Mimi Carbone AT [facility] Work Phone: NEGATED: Highlighted [id number] 09: Body weight 86 kg Mimi Carbone AT [facility] Work Phone: Encounters Encounter Date Encounter Type Care Provider Facility Start: 04-08-2025 End: 04-08-2025 ambulatory CARMELA WISDOM Facility:[facility] Start: 04-08-2025 End: 04-08-2025 Patient encounter procedure CARMELA WISDOM [facility] [place] Comment on above: Medicare annual well ness visit, subsequent (Primary Dx); Urinary incontinence without sensory awareness; Acute pain of right knee; Essential hypertension; Vitamin D deficiency; Acquired hypothyroidism; Urinary urgency; Nocturia; Screening for depression; Encounter for screening examination for other mental health and behavioral disorders Start: 03-17-2025 End: 03-17-2025 Office outpatient visit 25 minutes Kadeem Goodrich APRN.CNP Work Phone: [facility] Comment on above: Sinobronchitis (Prim cristian Dx) Start: 03-17-2025 End: 03-17-2025 ambulatory CARMELA WISDOM Facility:[facility] Start: 12-10-2024 End: 12-10-[address] Armin Georges MD -Physical Therapy Work Phone: Start: 12-10-2024 End: 12-10-[address] Carmela Wisdom MD Work Phone: [facility] Work Phone: Start: 12-09-2024 End: 12-09-2024 ambulatory CARMELA WISDOM Facility:[facility] Start: 12-09-2024 End: 12-09-2024 Office outpatient visit 25 minutes Patricia Shah APRNVickieSTEM LEAD FORMER Work Phone: [facility] [place] Comment on above: Urinary retention (P rimary Dx); Microscopic hematuria; Vertigo Start: 12-04-2024 Non-patient / Non-visit Dr. Emerita Georges MD -[place] [facility] Work Phone: Start: 12-03-2024 Non-patient / Non-visit Dr. Emerita Georges MD -[place] [facility] Work Phone: Start: 12-03-2024 End: 12-04-2024 ambulatory Armin Georges Facility:[facility] Start: 12-03-2024 End: 12-04-2024 Evaluation and management of inpatient Dr. Armin Georges MD -Progressive Care Unit Work Phone: Start: 10-06-2024 End: 10-06-2024 ambulatory CARMELA WISDOM Facility:[facility] Start: 10-06-2024 End: 10-06-2024 Office outpatient visit 25 minutes Carmela Wisdom MD Work Phone: [facility] [place] Comment on above: Essential hypertensi on (Primary Dx); Acquired hypothyroidism; Hypercholesteremia; Vitamin D deficiency; Bilateral leg edema Start: 09-30-2024 End: 09-30-2024 ambulatory CARMELA WISDOM Facility:[facility] Start: 07-31-2024 End: 07-31-2024 Refill Carmela Wisdom MD Work Phone: [facility] [place] Comment on above: Refill Request; Medi cation Problem (Patient is out of medication) Start: 04-01-2024 End: 04-01-2024 Patient encounter procedure Carmela Wisdom MD Work Phone: [facility] [place] Comment on above: Medicare annual well ness visit, subsequent (Primary Dx); Essential hypertension; Vitamin D deficiency; Acquired hypothyroidism; Hypercholesteremia; Syncope, unspecified syncope type; Encounter for long-term current use of medication Start: 03-22-2024 End: 03-22-2024 Patient encounter procedure Jeremiah Jones PASSENGER ELEVATOR OPERATOR Work Phone: [facility] Comment on above: Sore throat (Primary Dx) Start: 10-03-2023 Refill Ginger RAMIREZPASSENGER ELEVATOR OPERATOR Work Phone: [facility] Comment on above: Refill Request Start: 09-14-2023 End: 09-14-2023 Admission to same day surgery center Dr. Carmela Wisdom Work Phone: [facility]-Supervisor Contact Lens/Special Procedures Work Phone: Start: 09-14-2023 End: 09-14-[address] Carmela Wisdom Work Phone: [facility] Work Phone: Start: 09-11-2023 Non-patient / Non-visit Dr. Kamala Wisdom Work Phone: [facility] Start: 09-06-2023 Non-patient / Non-visit Dr. Kamala Wisdom Work Phone: [facility] Work Phone: Start: 09-05-2023 Non-patient / Non-visit Dr. Kamala Wisdom Work Phone: [facility] Start: 09-05-2023 End: 09-05-[address] Carmela Wisdom Work Phone: [facility] Work Phone: Start: 09-05-2023 End: 09-05-[address] Carmela Wisdom Work Phone: [facility]-Cardiovascul ar Services Work Phone: Start: 08-13-2023 End: 08-13-[address] Carmela Wisdom Work Phone: [facility] Work Phone: Start: 07-10-2023 End: 07-10-2023 Office outpatient visit 15 minutes Patricia Shah DEDENTER.STEM LEAD FORMER Work Phone: [facility] [place] Comment on above: Uncontrolled hyperte nsion (Primary Dx); Syncope, unspecified syncope type; Near syncope Start: 07-06-2023 End: 07-06-2023 Patient encounter procedure Echocardiogram Wstr Work Phone: Cardiology Comment on above: Uncontrolled hyperte nsion; Syncope, unspecified syncope type Start: 07-03-2023 End: 07-03-2023 Office outpatient visit 25 minutes Patricia Shah DEDENTER.STEM LEAD FORMER Work Phone: Internal [facility] Comment on above: Uncontrolled hyperte nsion (Primary Dx); Near syncope; Syncope, unspecified syncope type; Essential hypertension Start: 07-01-2023 End: 07-01-2023 Emergency department patient visit [facility]-Emergency Department Work Phone: Start: 03-21-2023 End: 03-21-2023 Office outpatient visit 25 minutes Carmela Wisdom MD Work Phone: Internal [facility] Comment on above: Essential hypertensi on (Primary Dx); Vitamin D deficiency; Acquired hypothyroidism; Encounter for long-term current use of medication Start: 12-11-2022 Refill Carmela doran MD Work Phone: [facility] Comment on above: Refill Request Start: 12-07-2022 End: 12-07-[address] [facility] Work Phone: Start: 12-07-2022 End: 12-07-2022 Discharged [address]ur[address] [facility]-Physical Therapy Start: 09-20-2022 End: 09-20-2022 Office outpatient visit 15 minutes Carmela Wisdom MD Work Phone: [facility] [place] Comment on above: Essential hypertensi on (Primary Dx); Vitamin D deficiency; Acquired hypothyroidism Start: 08-22-2022 Telephone encounter Carmela carrillo MD Work Phone: [facility] [place] Comment on above: Results Start: 06-21-2022 Telephone encounter Carmela carrillo MD Work Phone: [facility] [place] Comment on above: Surgery shoulder rep lacement Start: 03-01-2022 End: 03-01-2022 Office outpatient visit 25 minutes Carmela Wisdom MD Work Phone: [facility] [place] Comment on above: Chronic left shoulde r pain (Primary Dx); Essential hypertension; Acquired hypothyroidism; Vitamin D deficiency; Encounter for long-term current use of medication Procedures Date Procedure Procedure Detail Performing Clinician Start: 04-08-2025 Culture bacterial quanttative colony count urine Carmela Wisdom MD Work Phone: Start: 04-08-2025 Urnls dip stick/tabl et rgnt auto w/o microscopy Carmela Wisdom MD Work Phone: Start: 04-08-2025 Adult depression screening assessment Carmela Wisdom MD Work Phone: Start: 12-03-2024 MRI of brain without contrast Dr. Carmela Wisdom MD Work Phone: Start: 12-03-2024 Urnls dip stick/tabl et reagent auto microscopy Dr. Carmela Wisdom MD Work Phone: Start: 12-03-2024 CT angiography of he ad and neck Dr. Carmela Wisdom MD Work Phone: Start: 12-03-2024 CT of head without contrast Dr. Carmela Wisdom MD Work Phone: Start: 12-03-[address] Carmela Wisdom MD Work Phone: Start: 12-03-2024 Measurement of renal function Dr. Carmela Wisdom MD Work Phone: Comment on above: GFR Calc Start: 04-01-2024 Adult depression screening assessment Carmela Wisdom MD Work Phone: Start: 03-22-2024 STREP A MOLECULAR (POC) [facility] Provider Start: 09-11-2023 Plain chest X-ray Dr. Suzan Wisdom Work Phone: Start: 09-05-2023 Radionuclide imaging of perfusion of myocardium under exercise stress Dr. Carmela Wisdom Work Phone: Start: 07-06-2023 Echo tthrc r-t 2d w/wom-mode compl spec&colr d Patricia Shah DEDENTER.STEM LEAD FORMER Work Phone: Start: 07-01-2023 CT of head without contrast Start: 03-08-2022 End: 03-08-2022 Arthrocentesis aspir&/inj major jt/bursa w/o us Demetria Pennington PA-C Work Phone: Start: 03-08-2022 End: 03-08-2022 BP scrn no perf at interval Demetria Pennington PA-C Work Phone: Start: 03-08-2022 End: 03-08-2022 Calc BMI abv up daron f/u Demetria king PA-C Work Phone: Start: 03-08-2022 End: 03-08-2022 Current tobacco non-user cad cap copd pv dm Demetria Pennington PA-C Work Phone: Start: 03-08-2022 End: 03-08-2022 Docrev cur meds by jv Pennington PA-C Work Phone: Start: 03-08-2022 End: 03-08-2022 Osteoarthritis symptoms&funcjal status asses Demetria Pennington PA-C Work Phone: Start: 03-08-2022 End: 03-08-2022 Pain doc pos and plan Demetria KlineC Work Phone: Start: 03-08-2022 End: 03-08-2022 Patient encounter procedure Demetria Pennington PA-C Work Phone: Start: 03-08-2022 End: 03-08-2022 Radex shoulder complete minimum 2 views Demetria Pennington PA-C Work Phone: Start: 03-08-2022 End: 03-08-2022 Triamcinolone acet inj NOS Demetria Pennington PA-C Work Phone: Start: 08-15-2021 Adult depression screening assessment Carmela Wisdom MD Work Phone: NEGATED: Highlighted rowStart: 03-08-2022 End: 03-08-2022 Documentation of current medications Mimi Carbone AT Plan of Treatment Date Care Activity Detail Author Start: 09-30-2027 Diabetes Screening Diabetes Screening [facility] Start: 11-20-2026 Urine microalbumin profile [facility] Start: 09-10-2026 Diabetes Screening Diabetes Screening [facility] Start: 04-09-2026 End: 04-09-2026 Patient encounter procedure 04/09/2026 9:20 AM EDT Office Visit [facility] [place] [address] [place] [address] Carmela Wisdom MD [address] [place] [address] medicare wellness [facility] [place] Comment on above: medicare wellness Start: 04-08-2026 Anxiety Screening Anxiety Screening [facility] Start: 04-08-2026 Depression Screening Depression Screening [facility] Start: 11-10-2025 End: 11-10-2025 Patient encounter procedure 11/10/2025 8:00 AM EST Office Visit [facility] [place] [address] [place] [address] Carmela Wisdom MD [address] [place] [address] 6 month follow up [facility] [place] Comment on above: 6 month follow up Start: 08-03-2025 DIABETES SCREEN DIABETES SCREEN [facility] Start: 06-29-2025 End: 06-29-2025 Patient encounter procedure 06/29/2025 9:30 AM EDT Office Visit Orthopaedics [address] [place] [address] Carmina Gordon PA-C [address] [place] [address] x: Acute pain of right knee [M25.561] Orthopaedics Comment on above: x: Acute pain of right knee [M25.561] Start: 04-08-2025 End: 04-08-2025 Patient encounter procedure 04/08/2025 8:00 AM EDT Office Visit [facility] [place] [address] [place] [address] Carmela Wisdom MD [address] [place] [address] Medicare Wellness [facility] [place] Comment on above: Medicare Wellness Start: 04-01-2025 Annual PCP Team Chronic Disease Visit Annual PCP Team Chronic Disease Visit [facility] Start: 04-01-2025 Anxiety Screening Anxiety Screening [facility] Start: 04-01-2025 BP Controlled (<130/80) BP Controlled (<130/80) [facility] Start: 04-01-2025 Depression Screening Depression Screening [facility] Start: 03-06-2025 End: 06-05-2025 Thyrotropin [Units/volume] in Serum or Plasma THYROID STIMULATING HORMONE Lab Routine Acquired hypothyroidism Expected: 03/06/2025 (Approximate), Expires: 06/05/2025 [facility] Work Phone: Comment on above: Expected: 03/06/2025 (Approximate), Expi res: 06/05/2025 Start: 03-06-2025 End: 06-05-2025 Thyroxine (T4) free [Mass/volume] in Serum or Plasma T4 FREE/FREE THYROXINE Lab Routine Acquired hypothyroidism Expected: 03/06/2025 (Approximate), Expires: 06/05/2025 [facility] Comment on above: Expected: 03/06/2025 (Approximate), Expi res: 06/05/2025 Start: 12-04-[address] Patient [address] [facility] Start: 12-03-2024 Following clinical pathway protocol [facility] Start: 12-03-2024 Ambulation without limitation [facility] Start: 12-03-2024 Assessment of risk of venous thromboembolism [facility] Start: 12-03-2024 Insertion of catheter into peripheral vein [facility] Start: 12-03-2024 Providing care according to standard [facility] Start: 12-03-2024 Referral to occupational therapist [facility] Start: 12-03-2024 Referral to service [facility] Start: 12-03-[address] [facility] Start: 12-03-2024 Admission procedure [facility] Start: 11-19-2024 Advance Directive Discussion Advance Directive Discussion [facility] Start: 10-06-2024 End: 10-06-2024 Patient encounter procedure 10/06/2024 9:00 AM EST Office Visit [facility] [place] [address] [place] [address] Carmela Wisdom MD [address] [place] [address] 6 month follow up [facility] [place] Comment on above: 6 month follow up Start: 09-21-2024 Annual PCP Team Chronic Disease Visit Annual PCP Team Chronic Disease Visit [facility] Start: 09-19-2024 End: 12-19-2024 25-hydroxyvitamin D3 [Mass/volume] in Serum or Plasma VITAMIN D 25 HYDROXY Lab Routine Vitamin D deficiency Encounter for long-term current use of medication Expected: 09/19/2024 (Approximate), Expires: 12/19/2024 [facility] Comment on above: Expected: 09/19/2024 (Approximate), Expi res: 12/19/2024 Start: 09-19-2024 End: 12-19-2024 CBC panel - Blood by Automated count COMPLETE BLOOD COUNT Lab Routine Essential hypertension Encounter for long-term current use of medication Expected: 09/19/2024 (Approximate), Expires: 12/19/2024 [facility] Comment on above: Expected: 09/19/2024 (Approximate), Expi res: 12/19/2024 Start: 09-19-2024 End: 12-19-2024 Comprehensive metabolic 2000 panel - Serum or Plasma COMPREHENSIVE METABOLIC PANEL Lab Routine Essential hypertension Encounter for long-term current use of medication Expected: 09/19/2024 (Approximate), Expires: 12/19/2024 [facility] Work Phone: Comment on above: Expected: 09/19/2024 (Approximate), Expi res: 12/19/2024 Start: 09-19-2024 End: 12-19-2024 Lipid 1996 panel - Serum or Plasma LIPID PANEL BASIC Lab Routine Encounter for long-term current use of medication Hypercholesteremia Expected: 09/19/2024 (Approximate), Expires: 12/19/2024 [facility] Comment on above: Expected: 09/19/2024 (Approximate), Expi res: 12/19/2024 Start: 09-19-2024 End: 12-19-2024 Thyrotropin [Units/volume] in Serum or Plasma THYROID STIMULATING HORMONE Lab Routine Acquired hypothyroidism Encounter for long-term current use of medication Expected: 09/19/2024 (Approximate), Expires: 12/19/2024 [facility] Comment on above: Expected: 09/19/2024 (Approximate), Expi res: 12/19/2024 Start: 09-19-2024 End: 12-19-2024 Thyroxine (T4) free [Mass/volume] in Serum or Plasma T4 FREE/FREE THYROXINE Lab Routine Acquired hypothyroidism Encounter for long-term current use of medication Expected: 09/19/2024 (Approximate), Expires: 12/19/2024 [facility] Comment on above: Expected: 09/19/2024 (Approximate), Expi res: 12/19/2024 Start: 09-19-2024 End: 12-19-2024 Triiodothyronine (T3) Free [Mass/volume] in Serum or Plasma T3, FREE Lab Routine Acquired hypothyroidism Encounter for long-term current use of medication Expected: 09/19/2024 (Approximate), Expires: 12/19/2024 [facility] Comment on above: Expected: 09/19/2024 (Approximate), Expi res: 12/19/2024 Start: 08-15-2024 DIABETES SCREEN DIABETES SCREEN [facility] Start: 07-20-2024 Influenza vaccination Influenza Vaccine (#1) [facility] Start: 07-10-2024 BP CONTROLLED (<130/80) BP CONTROLLED (<130/80) [facility] Start: 07-03-2024 BP CONTROLLED (<130/80) BP CONTROLLED (<130/80) [facility] Start: 04-01-2024 End: 04-01-2024 Patient encounter procedure 04/01/2024 8:00 AM EDT Office Visit [facility] [place] [address] [place] [address] Carmela Wisdom MD [address] [place] [address] 6 month follow up [facility] [place] Comment on above: 6 month follow up Start: 03-21-2024 ANNUAL PCP TEAM CHRONIC DISEASE VISIT ANNUAL PCP TEAM CHRONIC DISEASE VISIT [facility] Start: 11-19-2023 Advance Directive Discussion Advance Directive Discussion [facility] Start: 11-19-2023 Behavioral Health Screening Behavioral Health Screening [facility] Start: 09-21-2023 End: 11-21-2023 25-hydroxyvitamin D3 [Mass/volume] in Serum or Plasma VITAMIN D 25 HYDROXY Lab Routine Vitamin D deficiency Encounter for long-term current use of medication Expected: 09/21/2023 (Approximate), Expires: 11/21/2023 [facility] Work Phone: Comment on above: Expected: 09/21/2023 (Approximate), Expi res: 11/21/2023 Start: 09-21-2023 End: 11-21-2023 CBC panel - Blood by Automated count CBC Lab Routine Essential hypertension Encounter for long-term current use of medication Expected: 09/21/2023 (Approximate), Expires: 11/21/2023 [facility] Work Phone: Comment on above: Expected: 09/21/2023 (Approximate), Expi res: 11/21/2023 Start: 09-21-2023 End: 11-21-2023 Comprehensive metabolic 2000 panel - Serum or Plasma COMP METABOLIC PANEL Lab Routine Essential hypertension Encounter for long-term current use of medication Expected: 09/21/2023 (Approximate), Expires: 11/21/2023 [facility] Work Phone: Comment on above: Expected: 09/21/2023 (Approximate), Expi res: 11/21/2023 Start: 09-21-2023 End: 11-21-2023 Thyrotropin [Units/volume] in Serum or Plasma TSH BLD Lab Routine Acquired hypothyroidism Encounter for long-term current use of medication Expected: 09/21/2023 (Approximate), Expires: 11/21/2023 [facility] Work Phone: Comment on above: Expected: 09/21/2023 (Approximate), Expi res: 11/21/2023 Start: 09-21-2023 End: 11-21-2023 Thyroxine (T4) free [Mass/volume] in Serum or Plasma T4 FREE/FREE THYROX Lab Routine Acquired hypothyroidism Encounter for long-term current use of medication Expected: 09/21/2023 (Approximate), Expires: 11/21/2023 [facility] Work Phone: Comment on above: Expected: 09/21/2023 (Approximate), Expi res: 11/21/2023 Start: 09-21-2023 End: 11-21-2023 Triiodothyronine (T3) Free [Mass/volume] in Serum or Plasma T3 FREE BLD Lab Routine Acquired hypothyroidism Encounter for long-term current use of medication Expected: 09/21/2023 (Approximate), Expires: 11/21/2023 [facility] Work Phone: Comment on above: Expected: 09/21/2023 (Approximate), Expi res: 11/21/2023 Start: 09-20-2023 ANNUAL PCP TEAM CHRONIC DISEASE VISIT ANNUAL PCP TEAM CHRONIC DISEASE VISIT [facility] Start: 09-20-2023 BP CONTROLLED (<130/80) BP CONTROLLED (<130/80) [facility] Start: 09-20-2023 COVID-19 VACCINE (3 - Booster for Moderna series) COVID-19 VACCINE (3 - Booster for Moderna series) [facility] Comment on above: Postponed from 03/10/2021 (Declined at t his time) Start: 09-20-2023 COVID-19 VACCINE (3 - Moderna series) COVID-19 VACCINE (3 - Moderna series) [facility] Comment on above: Postponed from 03/10/2021 (Declined at t his time) Start: 09-20-2023 SHINGRIX VACCINE (2 of 3) SHINGRIX VACCINE (2 of 3) [facility] Comment on above: Postponed from 11/20/2011 (Declined at t his time) Start: 09-14-2023 Patient discharge [facility] Start: 07-20-2023 Covid-19 Vaccine ( season) Covid-19 Vaccine ( season) [facility] Start: 07-20-2023 Influenza vaccination INFLUENZA (#1) [facility] Start: 03-01-2023 ANNUAL PCP TEAM CHRONIC DISEASE VISIT ANNUAL PCP TEAM CHRONIC DISEASE VISIT [facility] Start: 03-01-2023 BP CONTROLLED (<130/80) BP CONTROLLED (<130/80) [facility] in Start: 01-17-2023 SHINGRIX VACCINE (3 of 3) SHINGRIX VACCINE (3 of 3) [facility] Start: 11-19-2022 ADVANCE DIRECTIVE DISCUSSION ADVANCE DIRECTIVE DISCUSSION [facility] Start: 11-19-2022 DEPRESSION ASSESSMENT DEPRESSION ASSESSMENT [facility] Start: 08-31-2022 End: 10-31-2022 25-hydroxyvitamin D3 [Mass/volume] in Serum or Plasma VITAMIN D 25 HYDROXY Lab Routine Vitamin D deficiency Expected: 08/31/2022 (Approximate), Expires: 10/31/2022 [facility] Work Phone: Comment on above: Expected: 08/31/2022 (Approximate), Expi res: 10/31/2022 Start: 08-31-2022 End: 10-31-2022 CBC panel - Blood by Automated count CBC Lab Routine Essential hypertension Encounter for long-term current use of medication Expected: 08/31/2022 (Approximate), Expires: 10/31/2022 [facility] Work Phone: Comment on above: Expected: 08/31/2022 (Approximate), Expi res: 10/31/2022 Start: 08-31-2022 End: 10-31-2022 Comprehensive metabolic 2000 panel - Serum or Plasma COMP METABOLIC PANEL Lab Routine Essential hypertension Encounter for long-term current use of medication Expected: 08/31/2022 (Approximate), Expires: 10/31/2022 [facility] Work Phone: Comment on above: Expected: 08/31/2022 (Approximate), Expi res: 10/31/2022 Start: 08-31-2022 End: 10-31-2022 Thyrotropin [Units/volume] in Serum or Plasma TSH BLD Lab Routine Acquired hypothyroidism Expected: 08/31/2022 (Approximate), Expires: 10/31/2022 [facility] Work Phone: Comment on above: Expected: 08/31/2022 (Approximate), Expi res: 10/31/2022 Start: 08-31-2022 End: 10-31-2022 Thyroxine (T4) free [Mass/volume] in Serum or Plasma T4 FREE/FREE THYROX Lab Routine Acquired hypothyroidism Expected: 08/31/2022 (Approximate), Expires: 10/31/2022 [facility] Work Phone: Comment on above: Expected: 08/31/2022 (Approximate), Expi res: 10/31/2022 Start: 08-31-2022 End: 10-31-2022 Triiodothyronine (T3) Free [Mass/volume] in Serum or Plasma T3 FREE BLD Lab Routine Acquired hypothyroidism Expected: 08/31/2022 (Approximate), Expires: 10/31/2022 [facility] Work Phone: Comment on above: Expected: 08/31/2022 (Approximate), Expi res: 10/31/2022 Start: 08-15-2022 Adult depression screening assessment DEPRESSION SCREENING [facility] Start: 08-15-2022 SHINGRIX VACCINE (2 of 3) SHINGRIX VACCINE (2 of 3) [facility] Comment on above: Postponed from 11/20/2011 (Declined at t his time) Start: 07-20-2022 Influenza vaccination INFLUENZA (#1) [facility] Start: 03-08-2022 End: 03-08-2022 Patient encounter procedure Appointment [facility] Work Phone: Start: 11-19-2021 DEPRESSION ASSESSMENT DEPRESSION ASSESSMENT [facility] Start: 06-12-2021 COVID-19 VACCINE (3 - Booster for Moderna series) COVID-19 VACCINE (3 - Booster for Moderna series) [facility] Start: 03-10-2021 COVID-19 VACCINE (3 - Booster for Moderna series) COVID-19 VACCINE (3 - Booster for Moderna series) [facility] Start: 11-20-2011 SHINGRIX VACCINE (2 of 3) SHINGRIX VACCINE (2 of 3) [facility] Start: 2003 RSV Vaccine (1 - 1-dose 60+ series) RSV Vaccine (1 - 1-dose 60+ series) [facility] Start: 1961 BP CONTROLLED (<130/80) BP CONTROLLED (<130/80) [facility] inic End: 07-03-2024 Echocardiography ECHO Cardiology Routine Uncontrolled hypertension Syncope, unspecified syncope type 1 Occurrences starting 07/03/2023 until 07/03/2024 [facility] Work Phone: Comment on above: 1 Occurrences starting 07/03/2023 until 07/03/2024 OUTSIDE VENDOR CARDI AC OUTPATIENT EXTENDED RHYTHM RECORDING (WITHOUT TELEMETRY) OUTSIDE VENDOR CARDIAC OUTPATIENT EXTENDED RHYTHM RECORDING (WITHOUT TELEMETRY) Holter Routine Uncontrolled hypertension Syncope, unspecified syncope type Ordered: 07/03/2023 [facility] Work Phone: Comment on above: Ordered: 07/03/2023 Patient Education [facility] Work Phone: Patient referral [facility] Work Phone: RAPID STREP TEST B/O RAPID STREP TEST B/O Lab Routine Sore throat Ordered: 03/22/2024 [facility] Work Phone: Comment on above: Ordered: 03/22/2024 End: 05-08-2026 XR Knee - right 4 Views XR KNEE GENERAL 4V AP BOTH/PA BOTH/LAT/MERC RIGHT Radiology Routine Acute pain of right knee 1 Occurrences starting 04/08/2025 until 05/08/2026 [facility] Work Phone: Comment on above: 1 Occurrences starting 04/08/2025 until 05/08/2026 [facility] Immunizations Immunization Date Immunization Notes Care Provider Ayo rees 09-19-2024 Influenza High-Dose Quadrivalent Dr. Carmela Wisdom MD Work Phone: [facility] 08-20-2024 influenza (ccIIV3) vaccine, age 6+ mo, trivalent (FLUCELVAX) Carmela Wisdom MD Work Phone: [facility] 08-17-2023 influenza (aIIV4) vaccine, age 65+ yr, quadrivalent, PF (FLUAD QUAD) Ginger Juarez APRN.PASSENGER ELEVATOR OPERATOR Work Phone: [facility] 08-17-2023 influenza virus vacc ine, unspecified formulation Carmela Wisdom MD Work Phone: [facility] 03-19-2023 zoster vaccine recombinant Carmela Wisdom MD Work Phone: [facility] Work Phone: 11-22-2022 zoster vaccine recombinant Carmela Wisdom MD Work Phone: [facility] Work Phone: 09-15-2022 influenza, high dose seasonal, preservative-free Carmela Wisdom MD Work Phone: [facility] 08-24-2021 influenza, high dose seasonal, preservative-free Carmela Wisdom MD Work Phone: [facility] Work Phone: 01-13-2021 COVID-19 vaccine, fu ll dose (MODERNA) Carmela Wisdom MD Work Phone: [facility] 12-16-2020 COVID-19 vaccine, fu ll dose (MODERNA) Carmela Wisdom MD Work Phone: [facility] 08-23-2020 influenza, high-dose , quadrivalent vaccine (FLUZONE HIGH DOSE QUADRIVALENT) Carmela Wisdom MD Work Phone: [facility] 08-28-2019 influenza, high dose seasonal, preservative-free Carmela Wisdom MD Work Phone: [facility] 08-13-2018 influenza, high dose seasonal, preservative-free Carmela Wisdom MD Work Phone: [facility] 09-24-2017 influenza, high dose seasonal, preservative-free Carmela Wisdom MD Work Phone: [facility] Work Phone: 11-20-2016 tetanus toxoid, redu torsten diphtheria toxoid, and acellular pertussis vaccine, adsorbed Carmela Wisdom MD Work Phone: [facility] 10-18-2016 influenza, high dose seasonal, preservative-free Carmela Wisdom MD Work Phone: [facility] 08-09-2015 influenza, high dose seasonal, preservative-free Carmela Wisdom MD Work Phone: [facility] 02-01-2015 pneumococcal conjuga te vaccine, 13 valent Carmela Wisdom MD Work Phone: [facility] 09-16-2014 influenza, seasonal, injectable Carmela Wisdom MD Work Phone: [facility] Work Phone: 09-23-2013 influenza virus vacc ine, unspecified formulation Carmela Wisdom MD Work Phone: [facility] Work Phone: 09-28-2012 influenza virus vacc ine, unspecified formulation Carmela Wisdom MD Work Phone: [facility] 09-25-2011 zoster vaccine, live Carmela andrade MD Work Phone: [facility] Work Phone: 09-21-2011 influenza virus vacc ine, unspecified formulation Carmela Wisdom MD Work Phone: [facility] 09-02-2010 influenza virus vacc ine, unspecified formulation Carmela Wisdom MD Work Phone: [facility] 09-10-2009 influenza virus vacc ine, unspecified formulation Carmela Wisdom MD Work Phone: [facility] Work Phone: 09-29-2008 pneumococcal polysaccharide vaccine, 23 valent Carmela Wisdom MD Work Phone: [facility] 09-24-2008 influenza virus vacc sam, unspecified formulation Carmela Wisdom MD Work Phone: [facility] Work Phone: 09-24-2007 influenza virus vacc ine, unspecified formulation Carmela Wisdom MD Work Phone: [facility] Work Phone: 10-01-2006 influenza virus vacc ine, unspecified formulation Carmela Wisdom MD Work Phone: [facility] 09-14-2005 influenza virus vacc ine, unspecified formulation Carmela Wisdom MD Work Phone: [facility] Work Phone: Payers Date Payer Category Payer Self-pay 2016 [facility] ANTHEM ME DICARE SUPPLEMENT Member Subscriber Plan / Payer (Effective 2016-Present) Name: Daisy Fernandez Relation to Subscriber: Self Name: Daisy Fernandez Payer ID: [id number] (NAIC) Group ID: [id number] Type: Indemnity Address: [id number] 2016 Unknown ANTHEM ANTHEM ME DICARE SUPPLEMENT [id number] 2016-Present [phone] [id number] Indemnity [id number] 2016 Unknown ANTHEM ANTHEM ME DICARE SUPPLEMENT [id number] 2016-Present [phone] [address] [place] [address] [place]ora [id number] 2016 Unknown [id number] 2008 Medicare MEDICARE MEDICAR E A AND B [id number] 2008-Present [phone] [address] [address] [place] [address] Medicare [id number] 2008 Medicare [id number] 2008 Medicare [id number] Unknown [id number] Unknown [id number] Unknown [id number] Unknown [id number] Social History Date Type Detail Facility Start: 07-01-2023 End: 09-14-2023 Assertion Unknown if ever smoked [facility] Work Phone: Start: 06-14-2012 End: 12-03-2024 Tobacco smoking status NHIS Never smoked tobacco [facility] Work Phone: Start: 08-15-2021 End: 04-08-2025 Alcohol intake Current non-drinker of alcohol (finding) [facility] Start: 07-06-2020 History SDOH Alcohol Frequency 1 [facility] Start: 07-06-2020 History SDOH Alcohol Std Drinks 98 [facility] Start: 07-06-2020 History SDOH Social Connections Phone 5 [facility] Start: 07-06-2020 History SDOH Social Connections Living 3 [facility] Start: 07-06-2020 History SDOH Physical Activity DPW 4 [facility] Start: 07-06-2020 History SDOH Physical Activity MPS 6 [facility] Start: 07-06-2020 History SDOH Transport Med 2 [facility] Start: 07-06-2020 Education 10 [facility] Start: 1945 Sex Assigned At Female [facility] Start: 02-19-2022 End: 09-20-2022 Exposure to SARS-CoV-2 (event) Not sure [facility] Start: 06-14-2012 Tobacco use and exposure Smokeless tobacco non-user [facility] Start: 07-06-2020 End: 03-21-2023 History of Social function [facility] Start: 07-06-2020 End: 03-21-2023 Social connection and isolation panel [facility] How often do you att end buddhist or voodoo services? Patient refused [facility] Do you belong to any clubs or organizations such as buddhist groups, unions, fraternal or athletic groups, or school groups? Yes [facility] Are you now , , , , never or living with a partner? [facility] How often to you hav e a drink containing alcohol? Never [facility] Do you feel stress - tense, restless, nervous, or anxious, or unable to sleep at night because your mind is troubled all the time - these days [OSQ] Not at all [facility] (I/We) worried wheth er (my/our) food would run out before (I/we) got money to buy more. Never true [facility] At any time in the p ast 12 months, were you homeless or living in long term [including now]? No [facility] Start: 07-01-2020 Gender identity Identifies as female gender (finding) [facility] Start: 07-01-2020 Sexual orientation Heterosexual (finding) [facility] Goals Date Patient Goal Desired Activity /State Functional Status Date Assessment Result Facility 12-04-2024 Functional status Ambulates [facility] Work Phone: 02-01-2015 Are you deaf, or do you have serious difficulty hearing No 02/01/2015 8:14 AM EDT Vicenta Cheema LPN No [facility] 02-01-2015 Are you blind, or do you have serious difficulty seeing, even when wearing glasses No 02/01/2015 8:14 AM Vicenta Dunbar LPN No [facility] 02-01-2015 Do you have serious difficulty walking or climbing stairs No 02/01/2015 8:14 AM EDVicenta Roblero LPN No [facility] 02-01-2015 Do you have difficul ty dressing or bathing No 02/01/2015 8:14 AM Vicenta Dunbar LPN No [facility] 02-01-2015 Because of a physica l, mental, or emotional condition, do you have difficulty doing errands alone such as visiting a physician's office or shopping No 02/01/2015 8:14 AM JUDDT Vicenta Cheema LPN No [facility] Mental Status Date Assessment Result Facility 12-04-2024 Cognitive function Voice/Name [facility] Work Phone: 07-01-2023 Cognitive function Level Of Cons ciousness Awake;Alert;Appropriate;Fol lows Commands [facility] Work Phone: 02-01-2015 Because of a physica l, mental, or emotional condition, do you have serious difficulty concentrating, remembering, or making decisions No 02/01/2015 8:14 AM EDT Vicenta Cheema LPN No [facility] Clinical Notes 03-08-2016 to 04-08-2025 Carmela Wisdom MD - 04/08/2025 8:14 AM Janelle Schuler LPN - 04/08/2025 8:07 AM EDTPatiKadeem Ralph APRN.PASSENGER ELEVATOR OPERATOR - 03/17/2025 11:11 AM EDT Note Date & Type Note Facility 04-08-2025 Note HNO ID: [id number] Author: CARMELA WISDOM MD Service: ? Author Type: Physician Type: Progress Notes Filed: 04/27/2025 01:08 Note Text: HISTORY Daisy Fernandez is a 79 year old lady here for Medicare Annual Wellness Visit, yearly exam and follow up appointment. Daisy is a 79-year-old female, with a history of hypercholesterolemia, HTN, and hypothyroidism, presenting for a Medicare Annual Wellness Visit. She also reports right knee pain and nocturnal urinary incontinence. Daisy reports a 2-week history of right knee pain, described as an ache that worsens with ascending and descending stairs. She denies any known trauma or injury to the knee and has not taken any medication for the pain, stating, I try to avoid pills if I can. She denies pain in the left knee and reports that the pain does not interfere with her sleep. She has not undergone any imaging studies for the knee. Daisy also reports worsening nocturnal urinary incontinence, stating, I wake up and...I'm usually up maybe twice during the night even. She denies dysuria and has not had a bladder infection in over a year. She is taking cranberry pills to prevent infections. During the day, she experiences urinary urgency but denies leakage. She has not yet scheduled an appointment with a urologist but intends to do so. She denies any issues with balance, vision (other than needing reading glasses), hearing, dental health, or sexual function. She also denies feelings of anxiety, stress, anger, irritability, loneliness, or isolation, and has no thoughts of self-harm. She reports eating healthy foods like fruits, vegetables, whole grains, and fiber-rich foods nearly every day. She does not require assistance with activities of daily living such as grocery shopping, cooking, or managing finances. She follows safety precautions at home and wears a seatbelt. She denies smoking, vaping, or using chewing tobacco. Daisy is currently taking atorvastatin, lisinopril, verapamil, and a thyroid medication. She reports taking her thyroid medication daily on an empty stomach and denies any symptoms of thyroid dysfunction. Her last TSH level was in the 4 range, and she has not had any changes in her medication dosage. She has lost approximately 5 lbs since September and is not actively dieting. She has not seen an eye doctor in about a year but reports no issues with her vision. She has a healthcare power of bankruptcy attorney and a living will, with no changes since they were established in 2020. Family history is significant for heart disease, diabetes, and brain tumors. Her oldest sister had brain tumors, and her other sister had heart disease secondary to rheumatic fever. One brother of COVID-19 in August 2022 at the age of 82, another brother of a myocardial infarction, and a third brother had a myocardial infarction and diabetes. Her mother also of a myocardial infarction. 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 Jordan King--derm) Internal hemorrhoids without mention of complication Obesity, unspecified Osteoarthrosis, unspecified whether generalized or localized, other specified sites Osteoarthritis TSH elevation 03/08/2016 no symptoms of hypothyroidism Variants of migraine, not elsewhere classified, without mention of intractable migraine without mention of status migrainosus Current Outpatient Medications Medication Sig verapamil SR (CALAN SR) 240 mg CR tablet Take 1 tablet by mouth once daily. lisinopril (ZESTRIL) 10 mg tablet Take 1 tablet by mouth once daily. levothyroxine (SYNTHROID) 25 mcg tablet Take 1 tablet by mouth once daily. Take on empty stomach. For thyroid. Cholecalciferol, Vitamin D3, 2,000 unit cap Take 2 tablets by mouth once daily. CRANBERRY EXTRACT (CRANBERRY CONCENTRATE ORAL) Take by mouth. ASPIRIN 81 MG ORAL TAB Take 81 mg by mouth. Two tablets daily for 30 days post op, surgery 09/11 atorvastatin (LIPITOR) 20 mg tablet Take 1 tablet by mouth every morning. For cholesterol. No current facility-administered medications for this visit. ALLERGIES Allergen Reactions Omeprazole Other: See Comments Feels caused leg cramping-improved with stopping Sulfa (Sulfonamide * Other: See Comments not sure of reaction Tolterodine Intolerance urinary retention FAMILY HISTORY Problem Relation Age of Onset Diabetes Mother Heart Mother Heart Father other (brain tumors) Sister Diabetes Sister also heart problems Coronary Artery Disease Sister Rheumatic heart disease Heart Attack Brother Diabetes Brother Heart Brother Social History Tobacco Use Smoking status: Never Smokeless tobacco: Never Substance Use Topics Alcohol use: No Drug use: No Daisy Main (more content not included)... [facility] 04-08-2025 History of Presen t illness Narrative Images from the original note were not included. HISTORY Daisy Fernandez is a 79 year old lady here for Medicare Annual Wellness Visit, yearly exam and follow up appointment. Daisy is a 79-year-old female, with a history of hypercholesterolemia, HTN, and hypothyroidism, presenting for a Medicare Annual Wellness Visit. She also reports right knee pain and nocturnal urinary incontinence. Daisy reports a 2-week history of right knee pain, described as an ache that worsens with ascending and descending stairs. She denies any known trauma or injury to the knee and has not taken any medication for the pain, stating, I try to avoid pills if I can. She denies pain in the left knee and reports that the pain does not interfere with her sleep. She has not undergone any imaging studies for the knee. Daisy also reports worsening nocturnal urinary incontinence, stating, I wake up and...I'm usually up maybe twice during the night even. She denies dysuria and has not had a bladder infection in over a year. She is taking cranberry pills to prevent infections. During the day, she experiences urinary urgency but denies leakage. She has not yet scheduled an appointment with a urologist but intends to do so. She denies any issues with balance, vision (other than needing reading glasses), hearing, dental health, or sexual function. She also denies feelings of anxiety, stress, anger, irritability, loneliness, or isolation, and has no thoughts of self-harm. She reports eating healthy foods like fruits, vegetables, whole grains, and fiber-rich foods nearly every day. She does not require assistance with activities of daily living such as grocery shopping, cooking, or managing finances. She follows safety precautions at home and wears a seatbelt. She denies smoking, vaping, or using chewing tobacco. Daisy is currently taking atorvastatin, lisinopril, verapamil, and a thyroid medication. She reports taking her thyroid medication daily on an empty stomach and denies any symptoms of thyroid dysfunction. Her last TSH level was in the 4 range, and she has not had any changes in her medication dosage. She has lost approximately 5 lbs since September and is not actively dieting. She has not seen an eye doctor in about a year but reports no issues with her vision. She has a healthcare power of bankruptcy attorney and a living will, with no changes since they were established in 2020. Family history is significant for heart disease, diabetes, and brain tumors. Her oldest sister had brain tumors, and her other sister had heart disease secondary to rheumatic fever. One brother of COVID-19 in August 2022 at the age of 82, another brother of a myocardial infarction, and a third brother had a myocardial infarction and diabetes. Her mother also of a myocardial infarction. 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 Jordan King--derm) Internal hemorrhoids without mention of complication Obesity, unspecified Osteoarthrosis, unspecified whether generalized or localized, other specified sites Osteoarthritis TSH elevation 03/08/2016 no symptoms of hypothyroidism Variants of migraine, not elsewhere classified, without mention of intractable migraine without mention of status migrainosus Current Outpatient Medications Medication Sig verapamil SR (CALAN SR) 240 mg CR tablet Take 1 tablet by mouth once daily. lisinopril (ZESTRIL) 10 mg tablet Take 1 tablet by mouth once daily. levothyroxine (SYNTHROID) 25 mcg tablet Take 1 tablet by mouth once daily. Take on empty stomach. For thyroid. Cholecalciferol, Vitamin D3, 2,000 unit cap Take 2 tablets by mouth once daily. CRANBERRY EXTRACT (CRANBERRY CONCENTRATE ORAL) Take by mouth. ASPIRIN 81 MG ORAL TAB Take 81 mg by mouth. Two tablets daily for 30 days post op, surgery 09/11 atorvastatin (LIPITOR) 20 mg tablet Take 1 tablet by mouth every morning. For cholesterol. No current facility-administered medications for this visit. ALLERGIES Allergen Reactions Omeprazole Other: See Comments Feels caused leg cramping-improved with stopping Sulfa (Sulfonamide * Other: See Comments not sure of reaction Tolterodine Intolerance urinary retention FAMILY HISTORY Problem Relation Age of Onset Diabetes Mother Heart Mother Heart Father other (brain tumors) Sister Diabetes Sister also heart problems Coronary Artery Disease Sister Rheumatic heart disease Heart Attack Brother Diabetes Brother Heart Brother Social History Tobacco Use Smoking status: Never Smokeless tobacco: Never Substance Use Topics Alcohol use: No Drug use: No Daisy Mares Richard is a 79 year old female here for a Medicare wellness visit. Medicare Health Risk Assessment General Health Very good Exercise: Minutes/Day 40 min Exercise: Days/Week 3 days Alcohol: Daily Use Never Alcohol: Drinks/Day Patient does not drink Alcohol: 6 or more drinks Never Feel off balance No Concerns: Teeth/Dentures No Concerns: Sexual function No Troubled by feelings None of the above Frequency: Eating healthy diet Nearly every day ADLs requiring help None of the above Safety precautions in home/vehicle Yes Smoke, vape, chews tobacco No Difficulty hearing No Difficulty seeing No Current Providers Specialists: I have reviewed specialist-related care of the patient in the medical record. Outside specialists seen: Dr. Brian ([facility]) Medical/Family history review Reviewed and updated problem list, medical/surgical/family/social history, medications, and allergies. Opioid use review Opioid Medications (last 90 days) No data to display Anxiety/Depression screening PHQ-2 Score: 0 (Lower risk for depression) ANILA-2 Score: 0 (Lower risk for anxiety) Recommendation: no further intervention at this time Cognitive screening Mini Cog Score: 5 Cognitive screening reviewed and No further action needed (score 3-5). Functional Observation Was the patient's Timed Up & Go test unsteady or >= 12 seconds? No Advance Care Planning Surrogate decision maker and/or advance care plan documented Measurements BP 124/60 (BP Site: Left Arm, BP Position: Sitting, BP Cuff Size: Large Adult) Pulse 73 Temp 36.7 C (98 F) (Temporal) Resp 14 Ht 162.6 cm (5' 4) Wt 81.6 kg (179 lb 14.3 oz) SpO2 96% BMI 30.88 kg/m Vision Screening: Follows with optometry/ophthalmology Assessment/Plan Medicare annual wellness visit, subsequent (Z00.) - Counseled on healthy diet and regular exercise - Fall avoidance information provided - Personalized prevention plan provided # Medicare annual wellness visit, subsequent (Z00.) - Completed Medicare annual wellness visit. - Discussed family history, dietary habits, and safety precautions. - Reviewed advanced directives; confirmed presence of living will and healthcare power of bankruptcy attorney. - Patient reports no issues with balance, dental health, sexual function, or mental health. - Advised continuation of healthy eating and exercise. - Follow-up with Dr. Brian for regular eye check-ups. # Urinary incontinence without sensory awareness (N39.42) # Urinary urgency (R39.15) # Nocturia (R35.1) - Experiencing nocturnal incontinence and urinary urgency without daytime leakage. - No dysuria reported. - Ordered urinalysis to rule out urinary tract infection. - Referral to Dr. Campa, Urology, for further evaluation and management. - Continues to take cranberry supplements; no recent history of UTIs. # Acute pain of right knee (M25.561) - Onset of pain a few weeks ago, exacerbated by stair climbing; no known injury. - Mild crepitus noted on examination. - Ordered X-ray of the right knee. - Referral to Orthopedic Surgery; first available appointment with Dr. Chappell or Dr. Esparza. - Discussed use of fnez-zog-mhydnyt Voltaren gel and Tylenol for pain management. # Essential hypertension (I10) - Blood pressure well-controlled on current regimen. - Continue current medications: Lisinopril and Verapamil. # Vitamin D deficiency (E55.9) - Continue current supplementation. # Acquired hypothyroidism (E03.9) - Stable on current thyroid medication; taking daily on an empty stomach. - Last TSH level was in the 4 range; no symptoms of thyroid imbalance reported. - Scheduled TSH lab for next routine check in six months. # Screening for depression (Z13.31) # Encounter for screening examination for other mental health and behavioral disorders (Z13.39) - Completed screening for depression and other mental health disorders; no concerns reported. Carmela Wisdom MD Recording using [employer] software for draft documentation of the visit was discussed with the patient/authorized marketing development representative; all questions welcomed and answered. Patient/authorized marketing development representative agreed to proceed [facility] [facility] [place] and stated needs to set up appt. Janelle James LPN documented in this encounter [facility] 04-08-2025 Instructions Carmela Wisdom MD - 04/08/2025 8:14 AM EDT - A urology consult has been ordered for Dr. Malagon; clinic staff will help you schedule your appointment. - An orthopedic consult has been ordered; you ll see either Dr. De La Cruz or Dr. Esparza or their associates (first available) to evaluate your right knee. - Get an x-ray of your right knee before your orthopedics visit so they can assess any arthritis or [id number]-[id number] changes. - Provide a urine sample for a dipstick test today to check for any bladder infection; we ll treat you if the test is positive. - Start atorvastatin (Lipitor) as prescribed; it has been sent to [facility]. - Continue your thyroid medication daily on an empty stomach, and keep taking your lisinopril and rapamol as usual. - Continue cranberry pills for urinary health as you ve been doing. - You may apply [id number] Voltaren gel to your knee for inflammation, or take plain Tylenol as needed for pain relief. - If you d like extra support, consider a knee sleeve or topical creams like Salonpas or Blue Emu for mild aching. - Stay active within your comfort limits and avoid activities that aggravate your knee (for example, excessive stair climbing) until the orthopedist advises otherwise. Screening schedule The following prevention plan is recommended: Advance Directive Discussion due on 11/19/2024 Depression Screening due on 04/01/2025 Anxiety Screening due on 04/01/2025 WHAT YOU CAN DO TO PREVENT FALLS Many falls can be prevented. By making some changes, you can lower your chances of falling. Four things YOU can do to prevent falls for you* and your caregiver 1. Begin a regular exercise program Exercise is one of the most important ways to lower your chances of falling. It makes you stronger and helps you feel better. Exercises that improve balance and coordination (like Pete Chi) are the most helpful. Lack of exercise leads to weakness and increases your chances of falling. Ask your doctor or health care provider about the best type of exercise program for you. 2. Have your health care provider review your medicines Have your doctor or pharmacist review all the medicines you take, even jofq-hns-vpgdnin medicines. As you get older, the way medicines work in your body can change. Some medicines, or combinations of medicines, can make you sleepy or dizzy and can cause you to fall. 3. Have your vision checked Have your eyes checked by an eye doctor at least once a year. You may be wearing the wrong glasses or have a condition like glaucoma or cataracts that limits your vision. Poor vision can increase your chances of falling. 4. Make your home safer About half of all falls happen at home. To make your home safer: Remove things you can trip over (like papers, books, clothes, and shoes) from stairs and places where you walk. Remove small throw rugs or use double-sided tape to keep the rugs from slipping. Keep items you use often in cabinets you can reach easily without using a step stool. Have grab bars put in next to your toilet and in the tub or shower. Use non-slip mats in the bathtub and on shower floors. Improve the lighting in your home. As you get older, you need brighter lights to see well. Hang light-weight curtains or shades to reduce glare. Have handrails and lights put in on all staircases. Wear shoes both inside and outside the house. Avoid going barefoot or wearing slippers. For more information, contact: Centers for Disease Control and Prevention www.cdc.gov/injury * This information may not apply if you have certain medical conditions. documented in this encounter [facility] 04-08-2025 Note HNO ID: [id number] Author: JANELLE JAMES LPN Service: ? Author Type: LICENSED NURSE Type: Progress Notes Filed: 04/27/2025 01:08 Note Text: Sees at [facility] [place] and stated needs to set up appt. Janelle James LPN [facility] 03-17-2025 Note HNO ID: [id number] Author: KADEEM GOODRICH APRN.NICHOLE Service: ? Author Type: Nurse Practitioner Type: Progress Notes Filed: 03/17/2025 11:24 Note Text: Subjective HPI Nontoxic-appearing 79-year-old female presents urgent care chief plaint cough sinus pressure chest congestion. Duration of symptoms 2 weeks. Associated symptoms listed above. Most prominent symptom today is sinus pressure and cough. OTC medications none. Unknown sick contacts. Cough is bothersome at night. Denies any fevers body aches chills productive cough chest pain shortness of breath pleuritic pain or hemoptysis. Past medical history prescription medications allergies reviewed. .Patient presents with: Nasal Congestion: drainage, cough x 2 weeks PAST MEDICAL HISTORY Diagnosis Date Diverticulosis of colon (without mention of hemorrhage) Essential hypertension, benign GERD (gastroesophageal reflux disease) 12/08/2011 History of SCC (squamous cell carcinoma) of skin 2019 left forearm (Dr. Jordan King--derm) Internal hemorrhoids without mention of complication Obesity, unspecified Osteoarthrosis, unspecified whether generalized or localized, other specified sites Osteoarthritis TSH elevation 03/08/2016 no symptoms of hypothyroidism Variants of migraine, not elsewhere classified, without mention of intractable migraine without mention of status migrainosus PAST SURGICAL HISTORY Procedure Laterality Date BMD BONE DENSITY 2003,2005 normal COLONOSCOPY FLX DX W/COLLJ SPEC WHEN PFRMD 10/25/05 Colonoscopy LIG/TRNSXJ FLP TUBE ABDL/VAG APPR UNI/BI Tubal ligation PAST SURGICAL HISTORY OF tonsils PAST SURGICAL HISTORY OF moles removed from knee,neck ,breast, under arm, eyelid all benign RT/LT HEART CATHETERS 2008 CC AND CA, R AND L heart ([facility]) ALLERGIES Omeprazole, Sulfa (Sulfonamide Antibiotics), and Tolterodine MEDICATIONS verapamil SR (CALAN SR) 240 mg CR tablet Take 1 tablet by mouth once daily. lisinopril (ZESTRIL) 10 mg tablet Take 1 tablet by mouth once daily. levothyroxine (SYNTHROID) 25 mcg tablet Take 1 tablet by mouth once daily. Take on empty stomach. For thyroid. atorvastatin (LIPITOR) 20 mg tablet Take 1 tablet by mouth every morning. For cholesterol. Cholecalciferol, Vitamin D3, 2,000 unit cap Take 2 tablets by mouth once daily. CRANBERRY EXTRACT (CRANBERRY CONCENTRATE ORAL) Take by mouth. ASPIRIN 81 MG ORAL TAB Take 81 mg by mouth. Two tablets daily for 30 days post op, surgery 09/11 FAMILY HISTORY Problem Relation Age of Onset Diabetes Mother Heart Mother Heart Father Heart Brother other (brain tumors) Sister Diabetes Sister also heart problems Diabetes Brother Coronary Artery Disease Sister Social History Tobacco Use Smoking status: Never Smokeless tobacco: Never Substance Use Topics Alcohol use: No Drug use: No BP 124/80 Pulse 78 Temp 36.2 ?C (97.1 ?F) Resp 16 Wt 81.8 kg (180 lb 5.4 oz) SpO2 95% Review of Systems Constitutional: Negative for chills, fever and malaise/fatigue. HENT: Positive for congestion and sinus pain. Negative for ear discharge, ear pain and sore throat. Eyes: Negative for blurred vision, pain, discharge and redness. Respiratory: Positive for cough. Negative for hemoptysis, sputum production, shortness of breath, wheezing and stridor. Cardiovascular: Negative for chest pain. Gastrointestinal: Negative for abdominal pain, diarrhea, nausea and vomiting. Musculoskeletal: Negative for myalgias. Skin: Negative for itching and rash. Neurological: Negative for dizziness and headaches. Objective Physical Exam Constitutional: General: She is not in acute distress. Appearance: She is not diaphoretic. HENT: Head: Normocephalic. Jaw: No trismus, tenderness, swelling or pain on movement. Nose: Congestion present. Right Sinus: Maxillary sinus tenderness present. Left Sinus: Maxillary sinus tenderness present. Mouth/Throat: Mouth: Mucous membranes are moist. Pharynx: Oropharynx is clear. Uvula midline. No pharyngeal swelling, oropharyngeal exudate, posterior oropharyngeal erythema or uvula swelling. Eyes: Conjunctiva/sclera: Conjunctivae normal. Pupils: Pupils are equal, round, and reactive to light. Cardiovascular: Rate and Rhythm: Normal rate and regular rhythm. Heart sounds: Normal heart sounds. Pulmonary: Effort: Pulmonary effort is normal. No tachypnea, accessory muscle usage or respiratory distress. Breath sounds: Normal breath sounds. No stridor. No wheezing, rhonchi or rales. Abdominal: General: There is no distension. Palpations: Abdomen is soft. Tenderness: There is no abdominal tenderness. There is no guarding or rebound. Musculoskeletal: Cervical back: Normal range of motion and neck supple. No edema, erythema, rigidity or tenderness. No pain with movement. Normal range of motion. Lymphadenopathy: Cervical: No cervical adenopathy. Skin: General: Skin is (more content not included)... [facility] 03-17-2025 History of Presen t illness Narrative Subjective HPI Nontoxic-appearing 79-year-old female presents urgent care chief plaint cough sinus pressure chest congestion. Duration of symptoms 2 weeks. Associated symptoms listed above. Most prominent symptom today is sinus pressure and cough. OTC medications none. Unknown sick contacts. Cough is bothersome at night. Denies any fevers body aches chills productive cough chest pain shortness of breath pleuritic pain or hemoptysis. Past medical history prescription medications allergies reviewed. .Patient presents with: Nasal Congestion: drainage, cough x 2 weeks PAST MEDICAL HISTORY Diagnosis Date Diverticulosis of colon (without mention of hemorrhage) Essential hypertension, benign GERD (gastroesophageal reflux disease) 12/08/2011 History of SCC (squamous cell carcinoma) of skin 2019 left forearm (Dr. Jordan King--derm) Internal hemorrhoids without mention of complication Obesity, unspecified Osteoarthrosis, unspecified whether generalized or localized, other specified sites Osteoarthritis TSH elevation 03/08/2016 no symptoms of hypothyroidism Variants of migraine, not elsewhere classified, without mention of intractable migraine without mention of status migrainosus PAST SURGICAL HISTORY Procedure Laterality Date BMD BONE DENSITY 2003,2005 normal COLONOSCOPY FLX DX W/COLLJ SPEC WHEN PFRMD 10/25/05 Colonoscopy LIG/TRNSXJ FLP TUBE ABDL/VAG APPR UNI/BI Tubal ligation PAST SURGICAL HISTORY OF tonsils PAST SURGICAL HISTORY OF moles removed from knee,neck ,breast, under arm, eyelid all benign RT/LT HEART CATHETERS 2008 CC & CA, R & L heart ([facility]) ALLERGIES Omeprazole, Sulfa (Sulfonamide Antibiotics), and Tolterodine MEDICATIONS verapamil SR (CALAN SR) 240 mg CR tablet Take 1 tablet by mouth once daily. lisinopril (ZESTRIL) 10 mg tablet Take 1 tablet by mouth once daily. levothyroxine (SYNTHROID) 25 mcg tablet Take 1 tablet by mouth once daily. Take on empty stomach. For thyroid. atorvastatin (LIPITOR) 20 mg tablet Take 1 tablet by mouth every morning. For cholesterol. Cholecalciferol, Vitamin D3, 2,000 unit cap Take 2 tablets by mouth once daily. CRANBERRY EXTRACT (CRANBERRY CONCENTRATE ORAL) Take by mouth. ASPIRIN 81 MG ORAL TAB Take 81 mg by mouth. Two tablets daily for 30 days post op, surgery 09/11 FAMILY HISTORY Problem Relation Age of Onset Diabetes Mother Heart Mother Heart Father Heart Brother other (brain tumors) Sister Diabetes Sister also heart problems Diabetes Brother Coronary Artery Disease Sister Social History Tobacco Use Smoking status: Never Smokeless tobacco: Never Substance Use Topics Alcohol use: No Drug use: No BP 124/80 Pulse 78 Temp 36.2 C (97.1 F) Resp 16 Wt 81.8 kg (180 lb 5.4 oz) SpO2 95% Review of Systems Constitutional: Negative for chills, fever and malaise/fatigue. HENT: Positive for congestion and sinus pain. Negative for ear discharge, ear pain and sore throat. Eyes: Negative for blurred vision, pain, discharge and redness. Respiratory: Positive for cough. Negative for hemoptysis, sputum production, shortness of breath, wheezing and stridor. Cardiovascular: Negative for chest pain. Gastrointestinal: Negative for abdominal pain, diarrhea, nausea and vomiting. Musculoskeletal: Negative for myalgias. Skin: Negative for itching and rash. Neurological: Negative for dizziness and headaches. Objective Physical Exam Constitutional: General: She is not in acute distress. Appearance: She is not diaphoretic. HENT: Head: Normocephalic. Jaw: No trismus, tenderness, swelling or pain on movement. Nose: Congestion present. Right Sinus: Maxillary sinus tenderness present. Left Sinus: Maxillary sinus tenderness present. Mouth/Throat: Mouth: Mucous membranes are moist. Pharynx: Oropharynx is clear. Uvula midline. No pharyngeal swelling, oropharyngeal exudate, posterior oropharyngeal erythema or uvula swelling. Eyes: Conjunctiva/sclera: Conjunctivae normal. Pupils: Pupils are equal, round, and reactive to light. Cardiovascular: Rate and Rhythm: Normal rate and regular rhythm. Heart sounds: Normal heart sounds. Pulmonary: Effort: Pulmonary effort is normal. No tachypnea, accessory muscle usage or respiratory distress. Breath sounds: Normal breath sounds. No stridor. No wheezing, rhonchi or rales. Abdominal: General: There is no distension. Palpations: Abdomen is soft. Tenderness: There is no abdominal tenderness. There is no guarding or rebound. Musculoskeletal: Cervical back: Normal range of motion and neck supple. No edema, erythema, rigidity or tenderness. No pain with movement. Normal range of motion. Lymphadenopathy: Cervical: No cervical adenopathy. Skin: General: Skin is warm and dry. Neurological: Mental Status: She is alert and oriented to person, place, and time. ASSESSMENT/PLAN: 1. Sinobronchitis - ICD9: 473.9, 490, ICD10: J32.9, J40 Diagnosis sinobronchitis. Treat as secondary bacterial sinus infection. Cover with doxycycline cough suppressant as needed. Chest x-ray offered declined at today's visit. Will follow-up with PCP 2 to 3 days symptoms are not improving Red flags reevaluation discussed. Patient was educated on supportive therapies. Patient will follow up with primary care provider as needed. Patient was instructed to immediately proceed to emergency room for any new, worsening, or symptoms lasting longer than anticipated. The patient's clinical presentation is otherwise unremarkable at this time. Based on exam and clinical finding, the patient is stable for discharge. Plan of care was discussed with patient. Patient verbalizes understanding and agrees to plan of care. This note was generated using Blitsy software. It may contain errors in wording, punctuation, or spelling. Kadeem Goodrich APRN.NICHOLE documented in this encounter [facility] 12-09-2024 Note HNO ID: [id number] Author: PATRICIA SHAH APRN.STEM LEAD FORMER Service: ? Author Type: Nurse Specialist Type: Progress Notes Filed: 12/09/2024 08:02 Note Text: Subjective Patient presents with: Hospital F/U SUBJECTIVE: Daisy Fernandez is a 79 year old year old. PMH significant for ACTIVE PROBLEM LIST OVERWEIGHT Diverticulosis of Large Intestine Internal Hemorrhoids Without Mention of Complication Essential Hypertension Family History of Ischemic Heart Disease Generalized Osteoarthrosis, Unspecified Site Irritated//Inflamed Seborrheic Keratoses Skin tags//Skin tag Papillomas Melanocytic nevus of trunk: mid back Solar lentigines Actinic Damage//Sun-damaged skin Acquired Hypothyroidism Obesity, Class I, Bmi 30-34.9 Tsh Elevation History of Scc (Squamous Cell Carcinoma) of Skin History of Hypothyroidism Vitamin D Deficiency Presents for emergency department follow-up visit. She was seen at [facility] on December 03, 2024 for presyncopal episode. She reported arising from bed to use the bathroom and felt dizzy, this was brief and resolved. Recurred when she went to arise from bed again so EMS was called. Horizontal nystagmus was noted and slight/mild. Positive Hallpike Grace exam. Cranial nerves grossly intact. Lab work completed and showed no significant findings. She was given 1 L of fluid for dehydration by physical exam. Treated with 2 mg of oral Valium symptoms are most consistent with vertigo. While awaiting results of CTA she reported abdominal pain and found to have a distended bladder, unable to void therefore Ryder catheter was placed. She was unable to ambulate in the ER despite bladder compression scopolamine patch and 2 doses of Valium due to dizziness so she was admitted for further monitoring. Ryder catheter was discontinued during her admission and found to have 300 cc ofpostvoid residual. Replacement of the catheter was covered she preferred to go home with withdrawal of tolterodine to see if symptoms improved. She was advised to return to the ER if urinary retention recurred. Impression with vertigo, acute urinary retention CTA of head and neck with chronic changes, no acute findings. Today reports feeling improved. Notes vertigo has resolved, no recurrence. She has not needed any medications for send since using scopolamine in the ER. Notes that she has not had urinary retention since her discharge home. She notes increased frequency and nocturia but no gross hematuria no dysuria no incontinence. She is not sure if she something her bladder completely. Vertigo: resolved History of gross hematuria 2012, underwent cystoscopy [facility], negative findings, one year follow up advised, not completed. Urologist: She has an appointment with Dr Perez urologist in 2 weeks Last 14 Encounter BP Readings: Date: BP: 12/09/2024 137/81 10/06/2024 121/70 04/01/2024 118/68 03/22/2024 150/72 09/21/2023 124/68 07/10/2023 122/72 07/03/2023 115/71 03/21/2023 138/64 09/20/2022 128/74 03/01/2022 128/72 08/15/2021 120/70 01/28/2021 122/68 07/07/2020 118/62 12/29/2019 122/68 Hypothyroidism. She is doing well on her current dose of Synthroid. TSH Date Value 09/30/2024 4.090 mIU/L 11/21/2023 4.110 mIU/L 08/11/2021 2.870 uU/mL 05/17/2020 3.340 uU/mL ) PAST MEDICAL HISTORY Diagnosis Date Diverticulosis of colon (without mention of hemorrhage) Essential hypertension, benign GERD (gastroesophageal reflux disease) 12/08/2011 History of SCC (squamous cell carcinoma) of skin 2019 left forearm (Dr. Jordan King--derm) Internal hemorrhoids without mention of complication Obesity, unspecified Osteoarthrosis, unspecified whether generalized or localized, other specified sites Osteoarthritis TSH elevation 03/08/2016 no symptoms of hypothyroidism Variants of migraine, not elsewhere classified, without mention of intractable migraine without mention of status migrainosus Current Outpatient Medications Medication Sig verapamil SR (CALAN SR) 240 mg CR tablet Take 1 tablet by mouth once daily. lisinopril (ZESTRIL) 10 mg tablet Take 1 tablet by mouth once daily. levothyroxine (SYNTHROID) 25 mcg tablet Take 1 tablet by mouth once daily. Take on empty stomach. For thyroid. atorvastatin (LIPITOR) 20 mg tablet Take 1 tablet by mouth every morning. For cholesterol. Cholecalciferol, Vitamin D3, 2,000 unit cap Take 2 tablets by mouth once daily. CRANBERRY EXTRACT (CRANBERRY CONCENTRATE ORAL) Take by mouth. ASPIRIN 81 MG ORAL TAB Take 81 mg by mouth. Two tablets daily for 30 days post op, surgery 09/11 No current facility-administered medications for this visit. Review of Systems Constitutional: Negative. Objective BP 137/81 Pulse 65 Resp 16 Wt 83 kg (182 lb 15.7 oz) Physical Exam Constitutional: Appearance: Normal appearance. HENT: Head: Normocephalic. Eyes: Conjunctiva/sclera: Conjunctivae normal. Neck: T (more content not included)... [facility] 12-09-2024 History of Presen t illness Narrative Subjective Patient presents with: Hospital F/U SUBJECTIVE: Daisy Fernandez is a 79 year old year old. PMH significant for ACTIVE PROBLEM LIST OVERWEIGHT Diverticulosis of Large Intestine Internal Hemorrhoids Without Mention of Complication Essential Hypertension Family History of Ischemic Heart Disease Generalized Osteoarthrosis, Unspecified Site Irritated//Inflamed Seborrheic Keratoses Skin tags//Skin tag Papillomas Melanocytic nevus of trunk: mid back Solar lentigines Actinic Damage//Sun-damaged skin Acquired Hypothyroidism Obesity, Class I, Bmi 30-34.9 Tsh Elevation History of Scc (Squamous Cell Carcinoma) of Skin History of Hypothyroidism Vitamin D Deficiency Presents for emergency department follow-up visit. She was seen at [facility] on December 03, 2024 for presyncopal episode. She reported arising from bed to use the bathroom and felt dizzy, this was brief and resolved. Recurred when she went to arise from bed again so EMS was called. Horizontal nystagmus was noted and slight/mild. Positive Hallpike Grace exam. Cranial nerves grossly intact. Lab work completed and showed no significant findings. She was given 1 L of fluid for dehydration by physical exam. Treated with 2 mg of oral Valium symptoms are most consistent with vertigo. While awaiting results of CTA she reported abdominal pain and found to have a distended bladder, unable to void therefore Ryder catheter was placed. She was unable to ambulate in the ER despite bladder compression scopolamine patch and 2 doses of Valium due to dizziness so she was admitted for further monitoring. Ryder catheter was discontinued during her admission and found to have 300 cc of postvoid residual. Replacement of the catheter was covered she preferred to go home with withdrawal of tolterodine to see if symptoms improved. She was advised to return to the ER if urinary retention recurred. Impression with vertigo, acute urinary retention CTA of head and neck with chronic changes, no acute findings. Today reports feeling improved. Notes vertigo has resolved, no recurrence. She has not needed any medications for send since using scopolamine in the ER. Notes that she has not had urinary retention since her discharge home. She notes increased frequency and nocturia but no gross hematuria no dysuria no incontinence. She is not sure if she something her bladder completely. Vertigo: resolved History of gross hematuria 2012, underwent cystoscopy [facility], negative findings, one year follow up advised, not completed. Urologist: She has an appointment with Dr Perez urologist in 2 weeks Last 14 Encounter BP Readings: Date: BP: 12/09/2024 137/81 10/06/2024 121/70 04/01/2024 118/68 03/22/2024 150/72 09/21/2023 124/68 07/10/2023 122/72 07/03/2023 115/71 03/21/2023 138/64 09/20/2022 128/74 03/01/2022 128/72 08/15/2021 120/70 01/28/2021 122/68 07/07/2020 118/62 12/29/2019 122/68 Hypothyroidism. She is doing well on her current dose of Synthroid. TSH Date Value 09/30/2024 4.090 mIU/L 11/21/2023 4.110 mIU/L 08/11/2021 2.870 uU/mL 05/17/2020 3.340 uU/mL ) PAST MEDICAL HISTORY Diagnosis Date Diverticulosis of colon (without mention of hemorrhage) Essential hypertension, benign GERD (gastroesophageal reflux disease) 12/08/2011 History of SCC (squamous cell carcinoma) of skin 2019 left forearm (Dr. Jordan King--derm) Internal hemorrhoids without mention of complication Obesity, unspecified Osteoarthrosis, unspecified whether generalized or localized, other specified sites Osteoarthritis TSH elevation 03/08/2016 no symptoms of hypothyroidism Variants of migraine, not elsewhere classified, without mention of intractable migraine without mention of status migrainosus Current Outpatient Medications Medication Sig verapamil SR (CALAN SR) 240 mg CR tablet Take 1 tablet by mouth once daily. lisinopril (ZESTRIL) 10 mg tablet Take 1 tablet by mouth once daily. levothyroxine (SYNTHROID) 25 mcg tablet Take 1 tablet by mouth once daily. Take on empty stomach. For thyroid. atorvastatin (LIPITOR) 20 mg tablet Take 1 tablet by mouth every morning. For cholesterol. Cholecalciferol, Vitamin D3, 2,000 unit cap Take 2 tablets by mouth once daily. CRANBERRY EXTRACT (CRANBERRY CONCENTRATE ORAL) Take by mouth. ASPIRIN 81 MG ORAL TAB Take 81 mg by mouth. Two tablets daily for 30 days post op, surgery 09/11 No current facility-administered medications for this visit. Review of Systems Constitutional: Negative. Objective BP 137/81 Pulse 65 Resp 16 Wt 83 kg (182 lb 15.7 oz) Physical Exam Constitutional: Appearance: Normal appearance. HENT: Head: Normocephalic. Eyes: Conjunctiva/sclera: Conjunctivae normal. Neck: Thyroid: No thyromegaly. Vascular: Normal carotid pulses. No JVD. Cardiovascular: Rate and Rhythm: Normal rate and regular rhythm. Pulses: Carotid pulses are 2+ on the right side and 2+ on the left side. Radial pulses are 2+ on the right side and 2+ on the left side. Heart sounds: Normal heart sounds. Pulmonary: Effort: Pulmonary effort is normal. Breath sounds: Normal breath sounds. Abdominal: General: Bowel sounds are normal. Palpations: Abdomen is soft. Skin: General: Skin is warm and dry. Neurological: General: No focal deficit present. Mental Status: She is alert and oriented to person, place, and time. Psychiatric: Mood and Affect: Mood normal. Behavior: Behavior normal. Thought Content: Thought content normal. Judgment: Judgment normal. ASSESSMENT/PLAN: 1. Urinary retention - ICD9: 788.20, ICD10: R33.9 (primary diagnosis) She was seen at [facility] for dizziness, found to have urinary retention with a postvoid residual of 300 cc in the hospital.. Tolterodine was discontinued. She notes resolution of symptoms. Endorsed urology appointment with 1 month follow-up urinalysis for microscopic hematuria, recheck postvoid residual off medication. - URINALYSIS (WITH MICROSCOPIC) WITH CULTURE IF INDICATED - 1 mo here or [facility] - CONSULT TO UROLOGY - appointment Dr. Perez 2. Microscopic hematuria - ICD9: 599.72, ICD10: R31.29 - URINALYSIS (WITH MICROSCOPIC) WITH CULTURE IF INDICATED 3. Vertigo - ICD9: 780.4, ICD10: R42 She notes this is attributed to her tolterodine medication, no recurrence since discontinuation / discharge home - CONSULT TO UROLOGY Patient involved in shared decision making for management of medical issues. History and medications reviewed. Epic updated as needed Refills and/or prescriptions taken care of and meds adjusted as indicated after reviewed history, exam and labs. Health Maintenance reviewed. Updated record and/or ordered tests as recorded. Patricia Shah APRN.[employer]MER Medical Decision Making: Problems: Moderate: 1+ chronic illnesses with change and Acute illness with systemic symptoms Data: Unique source(s) for external note(s) reviewed: 1 Unique test result(s) reviewed: 3+ Risk: Moderate: Drug management Medical Decision Making Level: 4 - Moderate documented in this encounter [facility] 12-04-2024 Note [facility] Medical Records Department [address] [place] [address] Discharge Summary 12/04/24 1156 MR#: [id number] Acct: [id number] Name: DAISY FERNANDEZ Rep #: [id number] : 1945 79 From: Armin Georges MD PCP: Dr. Carmela Wisdom MD Status:ADM PAM Location: [place] [address] Providers Date of Admission: 12/03/24 Primary Care Physician: Dr. Carmela Wisdom MD Reason For Visit: VERTIGO Diagnosis Discharge Diagnosis (1) Vertigo: Status: Acute Code(s): R42 - Dizziness and giddiness (2) Acute urinary retention: Status: Acute Code(s): R33.8 - Other retention of urine Medications at Discharge Home Medications levothyroxine 25 mcg tablet 25 mcg PO DAILY 07/01/23 lisinopril 10 mg tablet 10 mg PO DAILY #30 tabs 07/01/23 verapamil 240 mg tablet,extended release 240 mg PO DAILY 07/01/23 aspirin 81 mg tablet,delayed release (Adult Low Dose Aspirin) 81 mg PO DAILY 07/17/23 cholecalciferol (vitamin D3) 50 mcg (2,000 unit) tablet 4,000 unit PO DAILY 07/17/23 cranberry 400 mg capsule 400 mg PO DAILY 07/17/23 atorvastatin 20 mg tablet (Lipitor) 20 mg PO .daily #90 tabs 09/14/23 Hospital Course Operations None Procedures None Summary of Care Provided Minutes Spent on Discharge: 33 Hospital Course: Per HPI: DAISY FERNANDEZ, is a 79 F who presents to the hospital with dizziness and vertigo. She has had episodes in the past of near syncope and syncope usually whenever she gets hot. Today she woke up at around 1 AM and had significant dizziness and trouble walking. She presented to the hospital and was felt to be vertigo but she had difficulty ambulating on her own and did not feel safe going home so she was admitted. MRI did not demonstrate a stroke or tumor and she denies any upper respiratory infections to indicate M???ni???re's or labyrinthitis. She does not have a visual nystagmus but she also had an episode of urinary retention that while in the ER led to abdominal pain and necessitating a Ryder being placed. She is on few medications but one of the medications she is on is tolterodine which can lead to urinary retention as well as dizziness and vertigo given its anticholinergic effects, she also has a head tremor which started around the time of this medication being prescribed therefore I discussed with family present this will be discontinued on discharge. At the time of my evaluation she feels that her dizziness is much improved and almost resolved however she did not feel comfortable going home after admission so we will evaluate overnight. Hospital Course: 1. Dizziness/vertigo with urinary retention due to medication???79-year-old female present to the hospital with episodes of dizziness and vertigo. She was found to have urinary retention in the ER and had a Ryder placed. MRI and CT of the head and neck were unremarkable, no signs of stroke or significant carotid occlusions. In 2022 she had a cardiac catheterization that was unremarkable and she denies any chest pain. During her stay her dizziness has improved, I discontinued her Ryder and she was able to urinate however she did have some retention with postvoid residuals around 300 cc, I discussed with her the possibility of needing to have the Ryder replaced she would prefer to go home without the Ryder and see if withdrawal of tolterodine would allow her to start urinating in the next 24 to 48 hours more consistently. I discussed with her the need to return to the hospital if she develops significant abdominal pain and difficulty urinating, she would not need to be admitted she would just need to have a Ryder placed, this was expressed to her and her who understand that if she does not have a Ryder placed they can go home after. I discussed with her and her the plan for discharge today they expressed understanding of the risk benefits going home and would like to go home today. I did not make any changes to her medications other than discontinuation of tolterodine. 2. Essential hypertension, hyperlipidemia, hypothyroidism are all chronic medical conditions which complicate her care. Her home medications were continued where appropriate Physical Exam Narrative General: Alert, Oriented x3, Cooperative, No apparent distress HEENT: Atraumatic, PERRLA, EOMI, Normocephalic, no nystagmus Oral: Moist Mucosa Neck: Supple, No JVD Lungs: Diminished, Normal air movement, No rhonchi, No wheeze, No rales Cardiovascular: Regular rate, Regular Rhythm, Normal S1, Normal S2, No murmurs Abdomen: Soft, Non Tender, Non-Distended, No Hepato-splenomegaly Extremities: No edema, Capillary Refill Less than 3 Seconds Skin: No rashes, No breakdown Musculoskeletal: No Tenderness to Palpation of Joints or Extremities Neurological: No focal neurological deficits, Motor Exam 5/5 strength throughout, Sensory exam intact to light to (more content not included)... [facility] 12-03-2024 Evaluation note Diagnosis Onset Date Resolution Acute urinary retention acute J anuary 2024 8:09am Essential hypertension acute Ja nuary 2024 8:09am Hypothyroidism acute December 032024 8:09am Vertigo acute December 03, 2024 8:09am [facility] Work Phone: [phone]) 672-457411-18-2024 Instructions* Patient Instructions* Carmela Wisdom MD - 10/06/2024 10:11 AM EST - Continue taking your current medications: Lipitor, Levothyroxine 25 mcg, Lisinopril, and Verapamil. - Your next appointment is scheduled for April 08. - Monitor your thyroid symptoms. If you notice any changes or feel that your thyroid is not functioning properly, contact the clinic. - If you experience any pain or significant swelling in your ankles, consider using mild compression socks. You can find various options on [employer]. [facility] NoteHNO ID: [id number] Author: CARMELA WISDOM MD Service: ? Author Type: Physician Type: Progress Notes Filed: 10/06/2024 10:12 Note Text: This note was created using Twyxtriter. Subjective Daisy Fernandez is a 79 year old female. Patient presents with: F/U 6 months: Labs prior SUBJECTIVE: Daisy Fernandez is a 79 year old year old lady here today for 6 month follow up appointment for review of medical conditions. Daisy Fernandez is an 79-year-old female, with a history of hypercholesterolemia and hypothyroidism, presenting for a regular 6-month follow-up visit. Daisy reports feeling well and denies any current health concerns. She notes mild swelling in the medial aspect of her ankle, which is not painful. She has tried wearing compression socks but found some to be too tight. Recent lab results were reviewed, including a comprehensive metabolic panel, CBC, lipid panel, and thyroid function tests. All results were within normal limits. Daisy's LDL cholesterol was 86 mg/dL, and her TSH was 4.090 microIU/mL. Vitamin D levels were also reported as normal. Daisy is currently taking multiple medications, including Lipitor, levothyroxine 25 mcg, lisinopril, and verapamil. She reports no issues with her medications and confirms that her prescriptions are filled at [facility]. She notes that her medications are dispensed in a 90-day supply but are not synchronized, leading to scattered refill dates. She has experienced issues with mail-order prescriptions in the past and prefers to apple picker her medications locally. 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 Jordan King--derm) Internal hemorrhoids without mention of complication Obesity, unspecified Osteoarthrosis, unspecified whether generalized or localized, other specified sites Osteoarthritis TSH elevation 03/08/2016 no symptoms of hypothyroidism Variants of migraine, not elsewhere classified, without mention of intractable migraine without mention of status migrainosus Current Outpatient Medications Medication Sig atorvastatin (LIPITOR) 20 mg tablet Take 1 tablet by mouth every morning. For cholesterol. verapamil SR (CALAN SR) 240 mg CR tablet Take 1 tablet by mouth once daily. tolterodine (DETROL) 2 mg tablet Take 1 tablet by mouth once daily. lisinopril (ZESTRIL) 10 mg tablet Take 1 tablet by mouth once daily. levothyroxine (SYNTHROID) 25 mcg tablet Take 1 tablet by mouth once daily. Take on empty stomach. For thyroid. Cholecalciferol, Vitamin D3, 2,000 unit cap Take 2 tablets by mouth once daily. CRANBERRY EXTRACT (CRANBERRY CONCENTRATE ORAL) Take by mouth. ASPIRIN 81 MG ORAL TAB Take 81 mg by mouth. Two tablets daily for 30 days post op, surgery 09/11 No current facility-administered medications for this visit. minute visit was spent counseling about above issues. Carmela Wisdom MD Review of Systems Objective BP 121/70 Pulse 64 Temp 36.4 ?C (97.6 ?F) Resp 16 Wt 83.7 kg (184 lb 8.4 oz) SpO2 97% Physical Exam Constitutional: Appearance: Normal appearance. HENT: Head: Normocephalic. Eyes: Conjunctiva/sclera: Conjunctivae normal. Cardiovascular: Rate and Rhythm: Normal rate and regular rhythm. Heart sounds: Normal heart sounds. Pulmonary: Effort: Pulmonary effort is normal. Breath sounds: Normal breath sounds. Musculoskeletal: Right lower leg: Edema (doughy edema; medial ankle noted) present. Left lower leg: Edema (mild) present. Skin: General: Skin is warm and dry. Neurological: General: No focal deficit present. Mental Status: She is alert and oriented to person, place, and time. Psychiatric: Mood and Affect: Mood normal. Behavior: Behavior normal. Thought Content: Thought content normal. Judgment: Judgment normal. Latest Ref Rng 09/10/2023 11/21/2023 09/30/2024 Protein, Total 6.3 - 8.0 g/dL 7.0 6.8 Albumin 3.9 - 4.9 g/dL 4.2 4.2 Calcium 8.5 - 10.2 mg/dL 9.8 9.7 Bilirubin, Total 0.2 - 1.3 mg/dL 0.4 0.5 Alkaline Phosphatase 34 - 123 U/L 68 64 AST 13 - 35 U/L 18 23 ALT 7 - 38 U/L 11 14 Glucose 74 - 99 mg/dL 87 90 BUN 7 - 21 mg/dL 17 19 Creatinine 0.58 - 0.96 mg/dL 0.88 0.83 Sodium 136 - 144 mmol/L 140 143 Potassium 3.7 - 5.1 mmol/L 4.4 4.4 Chloride 98 - 107 mmol/L 104 105 CO2 22 - 30 mmol/L 27 24 Anion Gap 8 - 15 mmol/L 9 14 eGFR >=60 mL/min/1.73m? 67 71 WBC 3.70 - 11.00 k/uL 3.89 4.31 RBC 3.90 - 5.20 m/uL 4.32 4.37 Hemoglobin 11.5 - 15.5 g/dL 13.7 13.9 Hematocrit 36.0 - 46.0 % 41.5 42.3 MCV 80.0 - 100.0 fL 96.1 96.8 MCH 26.0 - 34.0 pg 31.7 31.8 MCHC 30.5 - 36.0 g/dL 33.0 32.9 RDW-CV 11.5 - 15.0 % 13.2 13.2 Platelet Count 150 - 400 k/uL 249 239 MPV 9.0 - 12.7 fL 10.3 10.0 Absolute nRBC <0.01 k/uL <0.01 <0.01 (more content not included)...[facility] History of Present illness Narrative* Carmela Wisdom MD - 10/06/2024 9:59 AM EST This note was created using [employer]. Subjective Daisy Fernandez is a 79 year old female. Patient presents with: F/U 6 months: Labs prior SUBJECTIVE: Daisy Fernandez is a 79 year old year old lady here today for 6 month follow up appointment for review of medical conditions. Daisy Fernandez is an 79-year-old female, with a history of hypercholesterolemia and hypothyroidism, presenting for a regular 6-month follow-up visit. Daisy reports feeling well and denies any current health concerns. She notes mild swelling in the medial aspect of her ankle, which is not painful. She has tried wearing compression socks but found some to be too tight. Recent lab results were reviewed, including a comprehensive metabolic panel, CBC, lipid panel, and thyroid function tests. All results were within normal limits. Daisy's LDL cholesterol was 86 mg/dL,and her TSH was 4.090 microIU/mL. Vitamin D levels were also reported as normal. Daisy is currently taking multiple medications, including Lipitor, levothyroxine 25 mcg, lisinopril, and verapamil. She reports no issues with her medications and confirms that her prescriptions are filled at [facility]. She notes that her medications are dispensed in a 90-day supply but are not synchronized, leading to scattered refill dates. She has experienced issues with mail-order prescriptions in the past and prefers to apple picker her medications locally. 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 Jordan King--derm) Internal hemorrhoids without mention of complication Obesity, unspecified Osteoarthrosis, unspecified whether generalized or localized, other specified sites Osteoarthritis TSH elevation 03/08/2016 no symptoms of hypothyroidism Variants of migraine, not elsewhere classified, without mention of intractable migraine without mention of status migrainosus Current Outpatient Medications Medication Sig atorvastatin (LIPITOR) 20 mg tablet Take 1 tablet by mouth every morning. For cholesterol. verapamil SR (CALAN SR) 240 mg CR tablet Take 1 tablet by mouth once daily. tolterodine (DETROL) 2 mg tablet Take 1 tablet by mouth once daily. lisinopril (ZESTRIL) 10 mg tablet Take 1 tablet by mouth once daily. levothyroxine (SYNTHROID) 25 mcg tablet Take 1 tablet by mouth once daily. Take on empty stomach. For thyroid. Cholecalciferol, Vitamin D3, 2,000 unit cap Take 2 tablets by mouth once daily. CRANBERRY EXTRACT (CRANBERRY CONCENTRATE ORAL) Take by mouth. ASPIRIN 81 MG ORAL TAB Take 81 mg by mouth. Two tablets daily for 30 days post op, surgery 09/11 No current facility-administered medications for this visit. minute visit was spent counseling about above issues. Carmela Wisdom MD Review of Systems Objective BP 121/70 Pulse 64 Temp 36.4 C (97.6 F) Resp 16 Wt 83.7 kg (184 lb 8.4 oz) SpO2 97% Physical Exam Constitutional: Appearance: Normal appearance. HENT: Head: Normocephalic. Eyes: Conjunctiva/sclera: Conjunctivae normal. Cardiovascular: Rate and Rhythm: Normal rate and regular rhythm. Heart sounds: Normal heart sounds. Pulmonary: Effort: Pulmonary effort is normal. Breath sounds: Normal breath sounds. Musculoskeletal: Right lower leg: Edema (doughy edema; medial ankle noted) present. Left lower leg: Edema (mild) present. Skin: General: Skin is warm and dry. Neurological: General: No focal deficit present. Mental Status: She is alert and oriented to person, place, and time. Psychiatric: Mood and Affect: Mood normal. Behavior: Behavior normal. Thought Content: Thought content normal. Judgment: Judgment normal. Latest Ref Rng 09/10/2023 11/21/2023 09/30/2024 Protein, Total 6.3 - 8.0 g/dL 7.0 6.8 Albumin 3.9 - 4.9 g/dL 4.2 4.2 Calcium 8.5 - 10.2 mg/dL 9.8 9.7 Bilirubin, Total 0.2 - 1.3 mg/dL 0.4 0.5 Alkaline Phosphatase 34 - 123 U/L 68 64 AST 13 - 35 U/L 18 23 ALT 7 - 38 U/L 11 14 Glucose 74 - 99 mg/dL 87 90 BUN 7 - 21 mg/dL 17 19 Creatinine 0.58 - 0.96 mg/dL 0.88 0.83 Sodium 136 - 144 mmol/L 140 143 Potassium 3.7 - 5.1 mmol/L 4.4 4.4 Chloride 98 - 107 mmol/L 104 105 CO2 22 - 30 mmol/L 27 24 Anion Gap 8 - 15 mmol/L 9 14 eGFR >=60 mL/min/1.73m 67 71 WBC 3.70 - 11.00 k/uL 3.89 4.31 RBC 3.90 - 5.20 m/uL 4.32 4.37 Hemoglobin 11.5 - 15.5 g/dL 13.7 13.9 Hematocrit 36.0 - 46.0 % 41.5 42.3 MCV 80.0 - 100.0 fL 96.1 96.8 MCH 26.0 - 34.0 pg 31.7 31.8 MCHC 30.5 - 36.0 g/dL 33.0 32.9 RDW-CV 11.5 - 15.0 % 13.2 13.2 Platelet Count 150 - 400 k/uL 249 239 MPV 9.0 - 12.7 fL 10.3 10.0 Absolute nRBC <0.01 k/uL <0.01 <0.01 Cholesterol, Total <200 mg/dL 164 Triglyceride <150 mg/dL 49 HDL Cholesterol >39 mg/dL 68 Non HDL Cholesterol <130 mg/dL 96 Fasting Time hrs 13 VLDL Cholesterol <30 mg/dL 10 TC:HDL Ratio <5.10 2.41 LDL Cholesterol <100 mg/dL 86 LDL:HDL Ratio <2.54 1.26 TSH 0.270 - 4.200 mIU/L 5.640 (H) 4.110 4.090 Free T4 0.9 - 1.7 ng/dL 1.1 1.1 1.1 Free T3 2.3 - 4.1 pg/mL 3.0 2.9 2.9 Vitamin D 25 Hydroxy 31.0 - 80.0 ng/mL 75.6 76.8 Legend: (H) High Assessment and Plan # Essential hypertension (I10) - Blood pressure well-controlled. - Continue current antihypertensive regimen. # Acquired hypothyroidism (E03.9) - TSH level at 4.090, within normal range. - Patient reports feeling well; no adjustments to levothyroxine 25 mcg daily. - Ordered TSH and T4 labs to be done around mid-year or if symptoms suggestive of thyroid dysfunction arise. # Hypercholesteremia (E78.00) - LDL cholesterol reduced to 86 mg/dL, at goal. - Continue current Lipitor therapy. # Vitamin D deficiency (E55.9) - Vitamin D levels within normal range. - Continue current supplementation. # Bilateral leg edema (R60.0) - Mild, soft edema noted in medial aspect of bilateral ankles; non-painful. - Discussed use of mild compression socks to manage edema. Carmela Wisdom MD [facility] Telephone encounter Note * Telephone Encounter - Ophelia Trujillo - 07/31/2024 10:46 AM EDT Patient is out of medication and needs this expedited today. Patient has been identified by name and date of : Yes, Patient phones for refill(s): Requested Prescriptions Pending Prescriptions Disp Refills atorvastatin (LIPITOR) 20 mg tablet Sig: Take 1 tablet by mouth every morning. For cholesterol. Date of last office visit in primary care: 04/01/2024 Date of next office visit in primary care: 10/06/2024 Please advise. Thank you. Ophelia Trujillo. [facility]24 Miscellaneous Notes* Telephone Encounter - Ophelia Trujillo - 07/31/2024 10:46 AM EDT Patient is out of medication and needs this expedited today. Patient has been identified by name and date of : Yes, Patient phones for refill(s): Requested Prescriptions Pending Prescriptions Disp Refills atorvastatin (LIPITOR) 20 mg tablet Sig: Take 1 tablet by mouth every morning. For cholesterol. Date of last office visit in primary care: 04/01/2024 Date of next office visit in primary care: 10/06/2024 Please advise. Thank you. Ophelia Trujillo. documented [facility] encounter[facility] Instructions* Patient Instructions* Carmela Wisdom MD - 04/01/2024 8:38 AM EDT Screening schedule The following prevention plan is recommended: BP Controlled (<130/80) Never done Advance Directive Discussion due on 11/19/2023 Behavioral Health Screening Never done WHAT YOU CAN DO TO PREVENT FALLS Many falls can be prevented. By making some changes, you can lower your chances of falling. Four things YOU can do to prevent falls for you* and your caregiver 1. Begin a regular exercise program Exercise is one of the most important ways to lower your chances of falling. It makes you stronger and helps you feel better. Exercises that improve balance and coordination (like [place]) are the most helpful. Lack of exercise leads to weakness and increases your chances of falling. Ask your doctor or health care provider about the best type of exercise program for you. 2. Have your health care provider review your medicines Have your doctor or pharmacist review all the medicines you take, even [id number] medicines. As you get older, the way medicines work in your body can change. Some medicines, or combinations of medicines, can make you sleepy or dizzy andcan cause you to fall. 3. Have your vision checked Have your eyes checked by an eye doctor at least once a year. You may be wearing the wrong glasses or have a condition like glaucoma or cataracts that limits your vision. Poor vision can increase your chances of falling. 4. Make your home safer About half of all falls happen at home. To make your home safer: Remove things you can trip over (like papers, books, clothes, and shoes) from stairs and places where you walk. Remove small throw rugs or use double-sided tape to keep the rugs from slipping. Keep items you use often in cabinets you can reach easily without using a step stool. Have grab bars put in next to your toilet and in the tub or shower. Use non-slip mats in the bathtub and on shower floors. Improve the lighting in your home. As you get older, you need brighter lights to see well. Hang light-weight curtains or shades to reduce glare. Have handrails and lights put in on all staircases. Wear shoes both inside and outside the house. Avoid going barefoot or wearing slippers. For more information, contact: Centers for Disease Control and Prevention www.cdc.gov/injury * This information may not apply if you have certain medical conditions. documented in this encounterAccess [facility] History of Present illness Narrative* Carmela Wisdom MD - 04/01/2024 8:12 AM EDT Images from the original note were not included. Daisy Fernandez is a 78 year old female here for a Medicare wellness visit. Medicare Health Risk Assessment General Health Very good Exercise: Minutes/Day 50 min Exercise: Days/Week 4 days Alcohol: Daily Use Never Alcohol: Drinks/Day Patient does not drink Alcohol: 6 or more drinks Never Feel off balance No Concerns: Teeth/Dentures No Concerns: Sexual function No Troubled by feelings None of the above Frequency: Eating healthy diet More than half the days ADLs requiring help None of the above Safety precautions in home/vehicle Yes Smoke, vape, chews tobacco No Difficulty hearing No Difficulty seeing No Current Providers Specialists: I have reviewed specialist-related care of the patient in the medical record. Outside specialists seen: Dr. Thapa --cardiology Medical/Family history review Reviewed and updated problem list, medical/surgical/family/social history, medications, and allergies. Opioid use review Opioid Medications (last 90 days) No data to display Depression screening Depression Screening PHQ-2 Score 04/01/2024 0 Depression screening tool completed and reviewed. Based on score and interview, patient is not at risk for depression. Screening tool discussed with patient, and I recommended no further interventionat this time. Cognitive screening Cognitive screening reviewed and No further action needed (score 3-5). Functional Observation Was the patient's Timed Up & Go test unsteady or ? 12 seconds? No Advance Care Planning Surrogate decision maker documented and/or advance directives scanned in chart Measurements BP 118/68 Pulse 70 Temp 96 Resp 18 Wt 180 lb (81.6kg) SpO2 97% Vision Screening: Follows with optometry/ophthalmology Assessment/Plan Medicare annual wellness visit, subsequent (Z00.00) - Counseled on healthy diet and regular exercise - Fall avoidance information provided - Personalized prevention plan provided Additional Concerns The following concerns were also discussed with the patient: This note was created using NoteWriter. Subjective Daisy Fernandez is a 78 year old female. Patient presents with: F/U 6 months SUBJECTIVE: Daisy Fernandez is a 78 year old year old lady here today for Medicare Wellness and 6 month follow up appointment for review of medical conditions. Doing well on current meds. Reviewed had been seen in [facility] for acute illness 03/22/24. Viral illness noted. Sore throat resolved. Cough is pretty much gone. Clinically euthyroid. Blood pressure controlled without adverse effects from medications. Detrol effective. See assessment and plan for other issues addressed. 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 Jordan King--derm) Internal hemorrhoids without mention of complication Obesity, unspecified Osteoarthrosis, unspecified whether generalized or localized, other specified sites Osteoarthritis TSH elevation 03/08/2016 no symptoms of hypothyroidism Variants of migraine, not elsewhere classified, without mention of intractable migraine without mention of status migrainosus Current Outpatient Medications Medication Sig levothyroxine (SYNTHROID) 25 mcg tablet TAKE 1 TABLET BY MOUTH ONCE DAILY. TAKE ON EMPTY STOMACH. FOR THYROID. atorvastatin (LIPITOR) 20 mg tablet Take 1 tablet by mouth every morning. For cholesterol. lisinopril (ZESTRIL) 10 mg tablet Take 1 tablet by mouth once daily. verapamil SR (CALAN SR) 240 mg CR tablet Take 1 tablet by mouth once daily. tolterodine (DETROL) 2 mg tablet Take 1 tablet by mouth once daily. Cholecalciferol, Vitamin D3, 2,000 unit cap Take 2 tablets by mouth once daily. CRANBERRY EXTRACT (CRANBERRY CONCENTRATE ORAL) Take by mouth. ASPIRIN 81 MG ORAL TAB Take 81 mg by mouth. Two tablets daily for 30 days post op, surgery 09/11 Current Facility-Administered Medications Medication Dose Route Frequency perflutren lipid microspheres 1.3 mL in NaCl (PF) 0.9% 10 mL injection (DEFINITY) INTRAVENOUS DIRECTED PRN sodium chloride 0.9 % (flush) 10 mL (BD POSIFLUSH) 10 mL INTRAVENOUS DIRECTED PRN Review of Systems Objective BP 118/68 Pulse 70 Temp (!) 35.6 C (96 F) Resp 18 Wt 81.6 kg (180 lb) SpO2 97% Last 5 Encounter Wt Readings: Date: Wt: 04/01/2024 81.6 kg (180 lb) 03/22/2024 83.7 kg (184 lb 8.4 oz) 09/21/2023 83.5 kg (184 lb) 07/10/2023 82.1 kg (181 lb) 07/03/2023 82.1 kg (181 lb) No waist measurement recorded Estimated body mass index is 32.61 kg/m as calculated from the following: Height as of 11/22/12: 162.6 cm (5' 4). Weight as of 09/20/22: 86.2 kg (190 lb). Last 5 Encounter BP Readings: Date: BP: 04/01/2024 118/68 03/22/2024 150/72 09/21/2023 124/68 07/10/2023 122/72 07/03/2023 115/71 Physical Exam Constitutional: Appearance: Normal appearance. HENT: Head: Normocephalic. Eyes: Conjunctiva/sclera: Conjunctivae normal. Cardiovascular: Rate and Rhythm: Normal rate and regular rhythm. Heart sounds: Normal heart sounds. Pulmonary: Effort: Pulmonary effort is normal. Breath sounds: Normal breath sounds. Musculoskeletal: Right lower leg: Edema (trace pretibial) present. Left lower leg: Edema (trace pretibial) present. Skin: General: Skin is warm and dry. Neurological: General: No focal deficit present. Mental Status: She is alert and oriented to person, place, and time. Psychiatric: Mood and Affect: Mood normal. Behavior: Behavior normal. Thought Content: Thought content normal. Judgment: Judgment normal. Latest Ref Rng 09/10/2023 11/21/2023 Protein, Total 6.3 - 8.0 g/dL 7.0 Albumin 3.9 - 4.9 g/dL 4.2 Calcium 8.5 - 10.2 mg/dL 9.8 Bilirubin, Total 0.2 - 1.3 mg/dL 0.4 Alkaline Phosphatase 34 - 123 U/L 68 AST 13 - 35 U/L 18 ALT 7 - 38 U/L 11 Glucose 74 - 99 mg/dL 87 BUN 7 - 21 mg/dL 17 Creatinine 0.58 - 0.96 mg/dL 0.88 Sodium 136 - 144 mmol/L 140 Potassium 3.7 - 5.1 mmol/L 4.4 Chloride 97 - 105 mmol/L 104 CO2 22 - 30 mmol/L 27 Anion Gap 9 - 18 mmol/L 9 eGFR >=60 mL/min/1.73m 67 WBC 3.70 - 11.00 k/uL 3.89 RBC 3.90 - 5.20 m/uL 4.32 Hemoglobin 11.5 - 15.5 g/dL 13.7 Hematocrit 36.0 - 46.0 % 41.5 MCV 80.0 - 100.0 fL 96.1 MCH 26.0 - 34.0 pg 31.7 MCHC 30.5 - 36.0 g/dL 33.0 RDW-CV 11.5 - 15.0 % 13.2 Platelet Count 150 - 400 k/uL 249 MPV 9.0 - 12.7 fL 10.3 Absolute nRBC <0.01 k/uL <0.01 TSH 0.270 - 4.200 mIU/L 5.640 (H) 4.110 Free T4 0.9 - 1.7 ng/dL 1.1 1.1 Free T3 2.3 - 4.1 pg/mL 3.0 2.9 Vitamin D 25 Hydroxy 31.0 - 80.0 ng/mL 75.6 Legend: (H) High No further intervention at this time Assessment and Plan Encounter Diagnosis ICD-10-CM 1. Medicare annual wellness visit, subsequent Z00.00 2. Essential hypertension I10 verapamil SR (CALAN SR) 240 mg CR tablet COMPREHENSIVE METABOLIC PANEL COMPLETE BLOOD COUNT Well controlled. Stay on same meds 3. Vitamin D deficiency E55.9 VITAMIN D 25 HYDROXY Doing fine on current dose. No change 4. Acquired hypothyroidism E03.9 THYROID STIMULATING HORMONE T4 FREE/FREE THYROXINE T3, FREE Clinically euthyroid. Stay on same dose 5. Hypercholesteremia E78.00 LIPID PANEL BASIC Doing fine on Lipitor. No changes 6. Syncope, unspecified syncope type R55 lisinopril (ZESTRIL) 10 mg tablet No recurrences. Continue present management with staying hydrated and same meds 7. Encounter for long-term current use of medication Z79.899 COMPREHENSIVE METABOLIC PANEL THYROID STIMULATING HORMONE T4 FREE/FREE THYROXINE T3, FREE LIPID PANEL BASIC COMPLETE BLOOD COUNT VITAMIN D 25 HYDROXY Patient here for yearly exam and follow up. Above issues addressed with patient. Patient involved in shared decision making for management of medical issues. History and medications reviewed. Epic updated as needed Refills taken care of and meds adjusted as indicated after reviewed history, exam and labs. Health Maintenance reviewed. Updated record and/or ordered tests as recorded. Encouraged on efforts at healthy diet and regular exercise and adequate sleep. Carmela Wisdom MD documented in this encounterAccess [facility]05-[facility] History of Present illness Narrative* Jeremiah Jones, PIO.PASSENGER ELEVATOR OPERATOR - 03/22/2024 8:36 AM EDT This note was created using [employer]. Subjective Daisy Fernandez is a 78 year old female. HPI Pt noted sore throat and cough that started about 3 days ago.She is now also hoarse. Review of Systems Constitutional: Negative for fatigue. HENT: Positive for sore throat and voice change. Respiratory: Positive for cough. Objective BP 150/72 Pulse 74 Temp 36.4 C (97.6 F) Resp 18 Wt 83.7 kg (184 lb 8.4 oz) SpO2 96% Physical Exam Vitals and nursing note reviewed. Constitutional: General: She is not in acute distress. Appearance: Normal appearance. She is not ill-appearing. HENT: Head: Normocephalic. Mouth/Throat: Mouth: Mucous membranes are moist. Pharynx: No oropharyngeal exudate or posterior oropharyngeal erythema. Eyes: Conjunctiva/sclera: Conjunctivae normal. Cardiovascular: Rate and Rhythm: Normal rate and regular rhythm. Pulmonary: Effort: Pulmonary effort is normal. Breath sounds: Normal breath sounds. Musculoskeletal: General: Normal range of motion. Cervical back: Normal range of motion. Skin: General: Skin is warm and dry. Neurological: General: No focal deficit present. Mental Status: She is alert. Psychiatric: Mood and Affect: Mood normal. Behavior: Behavior normal. Assessment and Plan ASSESSMENT/PLAN: 1. Sore throat - ICD9: 462, ICD10: J02.9 - suspect viral - Rapid Strep negative in the office today - Discussed supportive care treatment with fluids, rest and analgesia. - The patient may also use OTC decongestants prn, OTC cough and cold meds as needed, and warm salt water gargles, throat lozenges and/or OTC throat spray as needed. - Contagious dz precautions discussed- including considered contagious until on antibiotics for 24 hours - The patient should follow up in 3-5 days if symptoms persist or worsen - Call back if drooling, increased temperature, symptoms of dehydration and/or still sick in one week - RAPID STREP TEST B/O Jeremiah Jones APRN.NICHOLE documented in this encounterAccess Hospital [place]11-15-2023 Miscellaneous Notes* Telephone Encounter - Carmela Wisdom MD - 10/03/2023 2:39 PM EST Okayed * Telephone Encounter - Radha Allen LPN - 10/03/2023 9:32 AM EST Patient has been identified by name and date of : Yes, Provider Dr. Wisdom Date 10/03/23 Time 9:36 am Pharmacy phones for refill(s): Requested Prescriptions Pending Prescriptions Disp Refills levothyroxine (SYNTHROID) 25 mcg tablet [Pharmacy Med Name: LEVOTHYROXINE 25 MCG TABLET] 90 tablet 3 Sig: TAKE 1 TABLET BY MOUTH ONCE DAILY. TAKE ON EMPTY STOMACH. FOR THYROID. Date of last office visit in primary care: Visit date not found Date of next office visit in primary care: Visit date not found Last 2 Encounter Wt Readings: Date: Wt: 07/10/2023 82.1 kg (181 lb) 07/03/2023 82.1 kg (181 lb) Previous labs/tests for medication: Thyroid: TSH Date Value 09/10/2023 5.640 mIU/L 08/11/2021 2.870 uU/mL Thank you. Radha Allen LPN. documented in this encounterAccess Hospital [place]10-24-2023 History and physical note Author Rich Thapa [facility] September 11, 2023 11:23am Note Date/Time September 11, 2023 9 :02am [facility] Medical Records Department [address] [place] [address] History & Physical Exam 09/11/23 0856 MR#: [id number] Acct: [id number] Name: DAISY FERNANDEZ Rep #:[id number] : 1945 78 From: Rich Thapa MD PCP: Dr. Carmela Wisdom MD Status:MN E SDC Location: [facility] History and Physical Date of Admission: 09/14/23 This is a pleasant 78-year-old lady who presents for a cardiac catheterization, following an abnormal stress test. She is an active lady who presented to the office for evaluation of syncope. She did have a previous cardiac evaluation here in 2008 with an angiogram which demonstrated no obstructive coronary disease. She subsequently moved to [place] in [place]. She came back recently. Interestingly while she was in [place] in 2010 she had presented with a presyncopal episode was worked up with a stress test and there was no evidence of ischemia. Her ejection fraction was noted to be normal. She has maintained a normal sinus rhythm with an incomplete left bundle branch block. During her recent visit to the emergency room in June of this year blood work was noted to be normal EKG was unremarkable and blood pressure was elevated. Anechocardiogram was performed post admission which demonstrated preserved left ventricular systolic function with an estimated ejection fraction of 56%. No wall motion abnormalities were noted. She tells me that she is doing quite well. Her physical exam here today is unremarkable. Intake Vital Signs See EMR Allergies See EMR Medications See EMR PFSH Medical History Diverticulosis Essential hypertension Hypothyroidism Migraine Obesity Osteoarthritis Overactive bladder SCC (squamous cell carcinoma) Syncope Surgical History H/O shoulder replacement History of colonoscopy History of left heart catheterization (04/05/09) History of tubal ligation Hx of tonsillectomy Family History Sister CAD (coronary artery disease) Diabetes Brain tumorBrother Diabetes Heart diseaseMother Diabetes Heart diseaseFather Heart disease Social History Smoking Status: Never smoker alcohol intake: never substance use type: does not use caffeine: Yes Type: carbonated beverages ROS Const Const: Negative for fatigue, weakness, headache(s), daytime sleepiness or difficulty sleeping Eyes Eyes: Negative for change in vision ENT ENT: Negative for headache(s), dizziness or Nosebleed/epistaxis Cardio Chest Pain: No Palpitations: No Edema: Bilateral (trace) Resp Respiratory: Negative for SOB with activity, SOB at rest, SOB orthopnea\SOB lying down or Cough GI GI: Negative nausea, vomiting or heartburn Neuro Neuro: Negative for dizziness, lightheadedness, near syncope, headache(s) or weakness Endo Endo: Negative for fatigue Cardiology Exam Const Appearance: cooperative, healthy appearing, no acute distress, well developed and well groomed Nutritional Appearance: average body habitus and well nourished Orientation: alert, awake and oriented x3 Head Head: normal to inspection, normocephalic and atraumatic Ears: hearing grossly normal bilaterally and external ears normal Nose: external nose normal, nares normal, nasal mucous membranes and turbinates normal, septum normal and no nasal discharge Face and Sinus: face symmetric Mouth: oral mucosae normal, tongue normal, oropharynx normal and moist mucous membranes Teeth and gingiva: dentition normal Throat: posterior oropharynx normal, tonsils normal and uvula midline Eyes General: appearance normal, both eyes and all related structures Eyelids: eyelids normal Conjunctivae: conjunctivae normal Pupils: PERRL, normal by confrontation and accommodation normal EOM: EOM intact bilaterally Neck Neck: normal visual inspection, trachea midline and no JVD JVD: +5 Carotids: normal carotid upstroke and bounding pulses Chest Chest inspection: normal inspection of the chest, symmetric chest movement and normal respiratory effort Auscultation: Bilateral: Clear to Auscultation Cardio Palpation: normal PMI Rate: regular rate Rhythm: regular rhythm Heart sounds: S1 normal, S2 normal and normal, physiologic split S2; Negative rub, gallop or murmur GI GI: normal to inspection, soft, no hepatosplenomegaly and bowel sounds present Neuro General: patient alert, patient awake, patient oriented x3, gait normal, moves all extremities and no focal sensory deficit Skin Skin: no rashes or lesions noted Extremities Pulses: Normal: Right Femoral Pulse, Left Femoral Pulse, Right Dorsalis Pedis Pulse, Left Dorsalis Pedis Pulse, Right Posterior Tibial Pulse, Left Posterior Tibial Pulse, Right Radial Pulse and Left Radial Pulse Lower Extremity Edema: None: Bilateral Musculoskel Musculoskeletal: No joint tenderness Psych Psychological: normal affect Supplemental Info Supplemental Information Echocardiogram 07/06/2023 CONCLUSIONS: - Technically difficult exam due to body habitus. - Exam indication: Syncope - The left ventricle is normal in size. There is mild concentric left ventricular hypertrophy. Left ventricular systolic function is normal. EF = 56 ? 5% (2D 4- ch.) ?Indeterminate left ventricular diastolic dysfunction. - The right ventricle is normal in size. Right ventricular systolic function is normal. - The patient has not had a prior CC echocardiographic exam for comparison. Stress Test 08/13/2011 Interpretation Summary Normal nuclear stress test 1. No evidence for infarct or ischemia. 2. Normal systolic function, EF 73%. Stress test 09/05/2023: Exercise myocardial perfusion stress test. 78-year-old lady with a history of syncope Stress protocol: Resting EKG demonstrates normal sinus rhythm with a rate of 66 bpm resting bloodpressure is 162/80 mmHg. The patient exercised according to the regular Gilmer protocol for a total duration of 4 minutes attaining a maximum heart rate of 148bpm which was 105% of maximum predicted heart rate; the maximum workload was 7 metabolic equivalents. At rest there were no ST or T wave changes noted to suggest ischemia and at peak exercise upsloping ST changes only were noted whichdid not meet the criteria for ischemia. During recovery there were ST changes noted in lead V1 and V2 only without any reciprocal changes. No clinical anginawas noted the test was terminated due to the target heart rate being achieved/fatigue. The patient became mildly presyncopal post exercise. The peak blood pressure was 218/82 mmHg. Rate- pressure product was 28,100. Myocardial perfusion protocol. 12.0 mCi of technetium 99m sestamibi was injected at rest. The patient exercised according to regular Gilmer protocol for total duration of 4 minutes and at peak exercise 34.7 mCi of technetium 99m sestamibi was injected stress images were obtained stress and rest images were reconstructed in comparing the short axis vertical long and horizontal long axis. Gated images were also obtained. Perfusion SPECT analysis: Review of the stress images demonstrate normal uptake of tracer noted in all areas of the myocardium. The resting images similarly demonstrate normal uptakeof tracer noted in all areas of the myocardium. No areas of reversibility are noted to suggest ischemia no previous infarct was noted. Gated SPECT analysis: The gated ejection fraction is 60%. Conclusion: Normal exercise myocardial perfusion stress test at a moderate workload EKG changes noted in lead V1 and V2 concerning for ischemia Preserved ejection fraction. Assessment and Plan Assessment and Plan (1) Syncope: Status: Acute Qualifiers: Syncope type: unspecified Qualified Code(s): R55 - Syncope and collapse Plan: Resented to the emergency room with a near syncopal episode. The etiology was not apparent. Her stress test from 09/05/2023 demonstrated a normal exercise myocardial perfusion stress test at a moderate workload with EKG changes noted in lead V1 and V2 concerning for ischemia. Will proceed with a cardiac catheterization to further assess this. Depending on results, further recommendations will be made. (2) Abnormal Stress Test Patients stress test from 09/05/2023 demonstrated a normal exercise myocardial perfusion stress test at a moderate workload with EKG changes noted in lead V1 and V2 concerning for ischemia. Will proceed with a cardiac catheterization to further assess this. Depending on results, further recommendations will be made. 09/11/23 1123 <Electronically signed by Rich Thapa MD> Cosigner Signature (if applicable): 09/11/23 0902 <Electronically signed by Patience GUTIÉRREZ> CC: MARLA Ribeiro; Dr. Rich Thapa MD; Dr. Carmela Wisdom MD~ Signed [facility] Work Phone: [phone]) 899-961108-22-2023 Nurse Note* Tiny Jackson LPN - 07/10/2023 7:25 AM EDT EVENT MONITOR DISPOSABLE PATCH INSTRUCTIONS Patient Name: Daisy Fernandez [facility] Number: [id number] Skin prepped and cleansed with alcohol Patch secured to prepped area Monitor Activated Serial #: [id number] Patient Instructed: Prescribed order timeframe Bathing guidelines Usage of event button and diary documentation Return of monitor at the end of prescribed order Call with problems [phone] or [phone]. [phone] Patient expresses a good understanding of instructions Tiny Jackson LPN documented in this encounterAccess Hospital [facility]08-22-2023 History of Present illness Narrative* Patricia Shah, PIO.STEM LEAD FORMER - 07/10/2023 7:06 AM EDT Subjective Patient presents with: Follow Up: zio monitor placement SUBJECTIVE: Daisy Fernandez is a 77 year old year old. PMH significant for ACTIVE PROBLEM LIST OVERWEIGHT Diverticulosis of Large Intestine Internal Hemorrhoids Without Mention of Complication Essential Hypertension Family History of Ischemic Heart Disease Generalized Osteoarthrosis, Unspecified Site Irritated//Inflamed Seborrheic Keratoses Skin tags//Skin tag Papillomas Melanocytic nevus of trunk: mid back Solar lentigines Actinic Damage//Sun-damaged skin Acquired Hypothyroidism Obesity, Class I, Bmi 30-34.9 Tsh Elevation History of Scc (Squamous Cell Carcinoma) of Skin History of Hypothyroidism Vitamin D Deficiency HPI excerpted from previous visit: Seen at [facility] 07/01/2023 for near syncope. Presents for ER follow up visit. She presented with report of near syncopal episode at home. She reported that she felt lightheaded while washing dishes. She reported sitting down did help but still felt somewhat lightheaded. She did not lose consciousness. Stated nothing made her worse or better. No chest pain shortness of breath nausea vomiting diaphoresis. Blood pressure elevated in the ER at 197/73 and 227/77 with a heart rate of 64-69. Lab work was unremarkable. Normal troponin. Nonspecific ST and T wave changes on EKG. Chronic changes only on CT brain. She was treated with labetalol in the ER. She was discharged on lisinopril. Impression was she may need heart rhythm monitor at discharge. She is advised to follow-up with PCP in 3 to 5 days. She reports home blood pressures since starting lisinopril been 115/68 151/79. She reports tolerating the medication without noted side effects. She reports no recurrence of symptoms. She reports no chest pain shortness of breath palpitations. No lightheadedness or dizziness since seen in ER. Without report of palpitations. Chronic mild lower extremity edema x 1 year, unchanged. No change in ability to walk a flat surface or take stairs. She reports 2 similar episodes. She reports intolerance of being overheated and then passing out. She reports 6 weeks ago she was walking around for prolonged period in [place]. She reports sensation of being overheated and witnessed syncope by her daughter. She does not have how long she waspassed out for a period she reports awakening sitting on a chair. She reports no loss of bowel or bladder control. Prodrome of feeling overheated or flushed otherwise no prodrome. She reports she wasadvised to go to the emergency department for further evaluation but declined. She does not know ifblood pressure was elevated or low or other findings at that time. She reports prior to most recent incident she was at buddhist standing for prolonged period and became overheated and felt presyncopal so she sat down with improvement of symptoms. No other associated symptoms with either episode. She reports telling emergency department personnel of both episodes when she was in the ER. She reports prior cardiac evaluation in [facility] approximately 10 years ago. She does notrecall what testing was completed at that time. Today reports feeling in her usual state of health. No further presyncope or syncopal episodes. Shereports she has used compression socks a couple of times since last here. Tolerating lisinopril, noadverse effects noted. Currently without report of headache, chest pain, palpitations, dyspnea, peripheral edema, orthopnea, fatigue, or PND. She completed echocardiogram since last seen. Presents in office today for [employer] application to assess for rhythm disturbance. She reports having an appointment with [facility] in July, Dr Thapa. Last 14 Encounter BP Readings: Date: BP: 07/10/2023 122/72 07/03/2023 115/71 03/21/2023 138/64 09/20/2022 128/74 03/01/2022 128/72 08/15/2021 120/70 01/28/2021 122/68 07/07/2020 118/62 12/29/2019 122/68 06/17/2019 124/68 03/06/2019 146/72 12/09/2018 128/70[checked 3 times and BP came down[ 06/03/2018 122/68 01/14/2018 128/66 Hypothyroidism. She is doing well on her current dose of Synthroid. TSH Date Value 08/03/2022 2.670 mIU/L 08/11/2021 2.870 uU/mL 05/17/2020 3.340 uU/mL ) PAST MEDICAL HISTORY Diagnosis Date Diverticulosis of colon (without mention of hemorrhage) Essential hypertension, benign GERD (gastroesophageal reflux disease) 12/08/2011 History of SCC (squamous cell carcinoma) of skin 2019 left forearm (Dr. Jordan King--derm) Internal hemorrhoids without mention of complication Obesity, unspecified Osteoarthrosis, unspecified whether generalized or localized, other specified sites Osteoarthritis TSH elevation 03/08/2016 no symptoms of hypothyroidism Variants of migraine, not elsewhere classified, without mention of intractable migraine without mention of status migrainosus Current Outpatient Medications Medication Sig lisinopril (ZESTRIL) 10 mg tablet Take 1 tablet by mouth once daily. tolterodine (DETROL) 2 mg tablet Take 1 tablet by mouth once daily. levothyroxine (SYNTHROID) 25 mcg tablet Take 1 tablet by mouth once daily. Take on empty stomach. For thyroid. Cholecalciferol, Vitamin D3, 2,000 unit cap Take 2 tablets by mouth once daily. CRANBERRY EXTRACT (CRANBERRY CONCENTRATE ORAL) Take by mouth. ASPIRIN 81 MG ORAL TAB Take 81 mg by mouth. Two tablets daily for 30 days post op, surgery 09/11 verapamil SR (CALAN SR) 240 mg CR tablet Take 1 tablet by mouth once daily. Current Facility-Administered Medications Medication Dose Route Frequency perflutren lipid microspheres 1.3 mL in NaCl (PF) 0.9% 10 mL injection (DEFINITY) INTRAVENOUS DIRECTED PRN sodium chloride 0.9 % (flush) 10 mL (BD POSIFLUSH) 10 mL INTRAVENOUS DIRECTED PRN Review of Systems Objective BP 122/72 Pulse 65 Resp 16 Wt 82.1 kg (181 lb) SpO2 95% Physical Exam Constitutional: Appearance: Normal appearance. HENT: Head: Normocephalic. Eyes: Conjunctiva/sclera: Conjunctivae normal. Cardiovascular: Rate and Rhythm: Normal rate and regular rhythm. Heart sounds: Normal heart sounds. Pulmonary: Effort: Pulmonary effort is normal. Breath sounds: Normal breath sounds. Skin: General: Skin is warm and dry. Neurological: General: No focal deficit present. Mental Status: She is alert and oriented to person, place, and time. Psychiatric: Mood and Affect: Mood normal. Behavior: Behavior normal. Thought Content: Thought content normal. Judgment: Judgment normal. Assessment and Plan ASSESSMENT/PLAN: 1. Uncontrolled hypertension - ICD9: 401.9, ICD10: I10 (primary diagnosis) Blood pressure was uncontrolled in the emergency department Now well controlled on lisinopril. - ECHO - PERFLUTREN LIPID MICROSPHERES 1.1 MG/ML INJECTION IN NS 10 ML - SODIUM CHLORIDE 0.9 % (FLUSH) INJECTION SYRINGE - OUTSIDE VENDOR CARDIAC OUTPATIENT EXTENDED RHYTHM RECORDING (WITHOUT TELEMETRY) - CONSULT TO CARDIOLOGY 2. Near syncope - ICD9: 780.2, ICD10: R55 She reports near syncope prior to ER visit. No recurrence since last seen 3. Syncope, unspecified syncope type - ICD9: 780.2, ICD10: R55 She reports syncopal episode 6 weeks ago, declined further evaluation at that time that it occurred. No recurrence since last seen. - ECHO - PERFLUTREN LIPID MICROSPHERES 1.1 MG/ML INJECTION IN NS 10 ML - SODIUM CHLORIDE 0.9 % (FLUSH) INJECTION SYRINGE - OUTSIDE VENDOR CARDIAC OUTPATIENT EXTENDED RHYTHM RECORDING (WITHOUT TELEMETRY) - CONSULT TO CARDIOLOGY - LISINOPRIL 10 MG TABLET 4. Essential hypertension - ICD9: 401.9, ICD10: I10 Currently well controlled blood pressure. Continue with medication unchanged for now. She reports history of intolerance of heat. She reports a syncopal episode 6 weeks ago and presyncope on July 01. She reports a prodrome of flushing or feeling overheated. No other complaints. Bothoccurred prior to prolonged standing. Will complete testing to rule out rhythm disturbance and change of structure and function of heart muscle as causes. Refer to cardiology, prefers to go to [facility]. For now recommend drinking sufficient fluid and wearing compression socks when sitting or standing for prolonged periods. Echocardiogram completed and showed normal systolic function and size, mild LVH, no significant valvular abnormalities. Application of ZIO today. We will fax office visit note and echocardiogram report to [facility]. We will send Zio results once received. Above issues addressed with patient. Patient involved in shared decision making for management of medical issues. History and medications reviewed. Epic updated as needed Refills and/or prescriptions taken care of and meds adjusted as indicated after reviewed history, exam and labs. Health Maintenance reviewed. Updated record and/or ordered tests as recorded. Patricia Shah APRN.[employer] FORMER Medical Decision Making: Problems: Moderate: New problem with uncertain prognosis Data: Unique test(s) ordered: 1 Risk: Low: Low risk from testing/treatment Medical Decision Making Level: 3 - Low documented [facility] Miscellaneous Notes* Result Encounter Note - Patricia Shah APRN.CNS - 07/06/2023 4:15 PM EDT Normal LV size and function, mild LVH, LVEF 56% mild MR and TR (1+). documented in this encounterAccess [facility]08-15-2023 Instructions* Patient Instructions* Patricia Shah APRN.CNS - 07/03/2023 8:24 AM EDT Drink plenty of fluids during the day. Aim for 64 ounces per day or eight 8 ounce glasses of fluid. Try wearing [id number] compression socks when sitting or standing for prolonged periods (8-15mmHg strength or similar). These are available at most pharmacies. Sit down and rest if you are feeling flushed or overheated documented in this encounterAccess [facility]08-15-[facility]23 History of Present illness Narrative* Patricia Shah APRN.CNS - 07/03/2023 8:00 AM EDT Subjective Patient presents with: Hospital F/U SUBJECTIVE: Daisy Fernandez is a 77 year old year old. PMH significant for ACTIVE PROBLEM LIST OVERWEIGHT Diverticulosis of Large Intestine Internal Hemorrhoids Without Mention of Complication Essential Hypertension Family History of Ischemic Heart Disease Generalized Osteoarthrosis, Unspecified Site Irritated//Inflamed Seborrheic Keratoses Skin tags//Skin tag Papillomas Melanocytic nevus of trunk: mid back Solar lentigines Actinic Damage//Sun-damaged skin Acquired Hypothyroidism Obesity, Class I, Bmi 30-34.9 Tsh Elevation History of Scc (Squamous Cell Carcinoma) of Skin History of Hypothyroidism Vitamin D Deficiency Seen at [facility] 07/01/2023 for near syncope. Presents for ER follow up visit. She presented with report of near syncopal episode at home. She reported that she felt lightheaded while washing dishes. She reported sitting down did help but still felt somewhat lightheaded. She did not lose consciousness. Stated nothing made her worse or better. No chest pain shortness of breath nausea vomiting diaphoresis. Blood pressure elevated in the ER at 197/73 and 227/77 with a heart rate of 64-69. Lab work was unremarkable. Normal troponin. Nonspecific ST and T wave changes on EKG. Chronic changes only on CT brain. She was treated with labetalol in the ER. She was discharged on lisinopril. Impression was she may need heart rhythm monitor at discharge. She is advised to follow-up with PCP in 3 to 5 days. She reports home blood pressures since starting lisinopril been 115/68 151/79. She reports tolerating the medication without noted side effects. She reports no recurrence of symptoms. She reports no chest pain shortness of breath palpitations. No lightheadedness or dizziness since seen in ER. Without report of palpitations. Chronic mild lower extremity edema x 1 year, unchanged. No change in ability to walk a flat surface or take stairs. She reports 2 similar episodes. She reports intolerance of being overheated and then passing out. She reports 6 weeks ago she was walking around for prolonged period in [place]. She reports sensation of being overheated and witnessed syncope by her daughter. She does not have how long she waspassed out for a period she reports awakening sitting on a chair. She reports no loss of bowel or bladder control. Prodrome of feeling overheated or flushed otherwise no prodrome. She reports she wasadvised to go to the emergency department for further evaluation but declined. She does not know ifblood pressure was elevated or low or other findings at that time. She reports prior to most recent incident she was at [employer] standing for prolonged period and became overheated and felt presyncopal so she sat down with improvement of symptoms. No other associated symptoms with either episode. She reports telling emergency department personnel of both episodes when she was in the ER. She reports prior cardiac evaluation in [facility] approximately 10 years ago. She does notrecall what testing was completed at that time. Last 14 Encounter BP Readings: Date: BP: 03/21/2023 138/64 09/20/2022 128/74 03/01/2022 128/72 08/15/2021 120/70 01/28/2021 122/68 07/07/2020 118/62 12/29/2019 122/68 06/17/2019 124/68 03/06/2019 146/72 12/09/2018 128/70[checked 3 times and BP came down[ 06/03/2018 122/68 01/14/2018 128/66 11/23/2017 130/72 11/08/2017 130/72 Hypothyroidism. She is doing well on her current dose of Synthroid. TSH Date Value 08/03/2022 2.670 mIU/L 08/11/2021 2.870 uU/mL 05/17/2020 3.340 uU/mL ) PAST MEDICAL HISTORY Diagnosis Date Diverticulosis of colon (without mention of hemorrhage) Essential hypertension, benign GERD (gastroesophageal reflux disease) 12/08/2011 History of SCC (squamous cell carcinoma) of skin 2019 left forearm (Dr. Jordan King--derm) Internal hemorrhoids without mention of complication Obesity, unspecified Osteoarthrosis, unspecified whether generalized or localized, other specified sites Osteoarthritis TSH elevation 03/08/2016 no symptoms of hypothyroidism Variants of migraine, not elsewhere classified, without mention of intractable migraine without mention of status migrainosus Current Outpatient Medications Medication Sig lisinopril (ZESTRIL) 10 mg tablet Take by mouth. verapamil SR (CALAN SR) 240 mg CR tablet Take 1 tablet by mouth once daily. tolterodine (DETROL) 2 mg tablet Take 1 tablet by mouth once daily. levothyroxine (SYNTHROID) 25 mcg tablet Take 1 tablet by mouth once daily. Take on empty stomach. For thyroid. Cholecalciferol, Vitamin D3, 2,000 unit cap Take 2 tablets by mouth once daily. CRANBERRY EXTRACT (CRANBERRY CONCENTRATE ORAL) Take by mouth. ASPIRIN 81 MG ORAL TAB Take 81 mg by mouth. Two tablets daily for 30 days post op, surgery 09/11 No current facility-administered medications for this visit. Review of Systems Objective BP 115/71 Pulse 60 Resp 16 Wt 82.1 kg (181 lb) PHYSICAL EXAMINATION: General appearance: Well appearing, alert, in no acute distress, well-hydrated, well nourished. Skin: Skin color, texture, turgor normal, no suspicious rashes or lesions Head: Normocephalic,Neck: Supple, no adenopathy; thyroid symmetric, normal size, no bruits Lungs: Lungs clear to auscultation. No wheezing, rhonchi, rales. Heart: RRR without murmur, gallop, or rubs. Abdomen: Abdomen soft, non-tender. Bowel sounds normal. No masses, organomegaly Extremities: No edema, skin discoloration, clubbing or cyanosis. Good capillary refill. Peripheral pulses: Normal Neuro: Gait normal. Reflexes normal and symmetric. Sensation grossly intact. Physical Exam Constitutional: Appearance: Normal appearance. HENT: Head: Normocephalic. Eyes: Conjunctiva/sclera: Conjunctivae normal. Cardiovascular: Rate and Rhythm: Normal rate and regular rhythm. Heart sounds: Normal heart sounds. Pulmonary: Effort: Pulmonary effort is normal. Breath sounds: Normal breath sounds. Skin: General: Skin is warm and dry. Neurological: General: No focal deficit present. Mental Status: She is alert and oriented to person, place, and time. Psychiatric: Mood and Affect: Mood normal. Behavior: Behavior normal. Thought Content: Thought content normal. Judgment: Judgment normal. Assessment and Plan ASSESSMENT/PLAN: 1. Uncontrolled hypertension - ICD9: 401.9, ICD10: I10 (primary diagnosis) Blood pressure was uncontrolled in the emergency department, now well controlled with addition of lisinopril. - ECHO - PERFLUTREN LIPID MICROSPHERES 1.1 MG/ML INJECTION IN NS 10 ML - SODIUM CHLORIDE 0.9 % (FLUSH) INJECTION SYRINGE - OUTSIDE VENDOR CARDIAC OUTPATIENT EXTENDED RHYTHM RECORDING (WITHOUT TELEMETRY) - CONSULT TO CARDIOLOGY 2. Near syncope - ICD9: 780.2, ICD10: R55 She reports near syncope prior to ER visit. 3. Syncope, unspecified syncope type - ICD9: 780.2, ICD10: R55 She reports syncopal episode 6 weeks ago, declined further evaluation at that time that it occurred. - ECHO - PERFLUTREN LIPID MICROSPHERES 1.1 MG/ML INJECTION IN NS 10 ML - SODIUM CHLORIDE 0.9 % (FLUSH) INJECTION SYRINGE - OUTSIDE VENDOR CARDIAC OUTPATIENT EXTENDED RHYTHM RECORDING (WITHOUT TELEMETRY) - CONSULT TO CARDIOLOGY - LISINOPRIL 10 MG TABLET 4. Essential hypertension - ICD9: 401.9, ICD10: I10 Currently well controlled blood pressure. Continue with medication unchanged for now. She reports history of intolerance of heat. She reports a syncopal episode 6 weeks ago and presyncope on July 01. She reports a prodrome of flushing or feeling overheated. No other complaints. Bothoccurred prior to prolonged standing. Will complete testing to rule out rhythm disturbance and change of structure and function of heart muscle as causes. Refer to cardiology, prefers to go to [facility]. For now recommend drinking sufficient fluid and wearing compression socks when sitting or standing for prolonged periods. Above issues addressed with patient. Patient involved in shared decision making for management of medical issues. History and medications reviewed. Epic updated as needed Refills and/or prescriptions taken care of and meds adjusted as indicated after reviewed history, exam and labs. Health Maintenance reviewed. Updated record and/or ordered tests as recorded. Patricia Shah APRN.JAMES Medical Decision Making: Problems: Moderate: New problem with uncertain prognosis Data: Unique source(s) for external note(s) reviewed: 1 Unique test(s) ordered: 2 Risk: Moderate: Drug management Medical Decision Making Level: 4 - Moderate documented in this encounterAccess [facility] [place]05-03-2023 History of Present illness Narrative* Carmela Wisdom MD - 03/21/2023 9:58 AM EDT This note was created using Twyxtriter. Subjective Daisy Fernandez is a 77 year old female. Patient presents with: F/U 6 months SUBJECTIVE: Daisy Fernandez is a 77 year old year old lady here today for 6 month follow up appointment for review of medical conditions. Has LW; will check on HCDPOA. HCDPOA is PAST MEDICAL HISTORY Diagnosis Date Diverticulosis of colon (without mention of hemorrhage) Essential hypertension, benign GERD (gastroesophageal reflux disease) 12/08/2011 History of SCC (squamous cell carcinoma) of skin 2019 left forearm (Dr. Jordan King--derm) Internal hemorrhoids without mention of complication Obesity, unspecified Osteoarthrosis, unspecified whether generalized or localized, other specified sites Osteoarthritis TSH elevation 03/08/2016 no symptoms of hypothyroidism Variants of migraine, not elsewhere classified, without mention of intractable migraine without mention of status migrainosus Current Outpatient Medications Medication Sig levothyroxine (SYNTHROID) 25 mcg tablet Take 1 tablet by mouth once daily. Take on empty stomach. For thyroid. tolterodine (DETROL) 2 mg tablet Take 1 tablet by mouth once daily. verapamil SR (CALAN SR, ISOPTIN SR) 240 mg CR tablet Take 1 tablet by mouth once daily. Cholecalciferol, Vitamin D3, 2,000 unit cap Take 2 tablets by mouth once daily. ASPIRIN 81 MG ORAL TAB Take 81 mg by mouth. Two tablets daily for 30 days post op, surgery 09/11 CRANBERRY EXTRACT (CRANBERRY CONCENTRATE ORAL) Take by mouth. No current facility-administered medications for this visit. Review of Systems Objective BP (P) 142/78 Pulse (P) 70 Temp (!) (P) 35.8 C (96.4 F) Resp (P) 18 Wt (P) 83 kg (183 lb) SpO2 (P) 97% Last 5 Encounter Wt Readings: Date: Wt: 09/20/2022 86.2 kg (190 lb) 03/01/2022 85.7 kg (189 lb) 08/15/2021 83.9 kg (185 lb) 01/28/2021 84.8 kg (187 lb) 12/29/2019 84.8 kg (187 lb) No waist measurement recorded Estimated body mass index is 32.61 kg/m as calculated from the following: Height as of 11/22/12: 162.6 cm (5' 4). Weight as of 09/20/22: 86.2 kg (190 lb). Last 5 Encounter BP Readings: Date: BP: 09/20/2022 128/74 03/01/2022 128/72 08/15/2021 120/70 01/28/2021 122/68 07/07/2020 118/62 03/21/23 0917 03/21/23 1003 BP: (P) 142/78 138/64 Pulse: (P) 70 Resp: (P) 18 Temp: (!) (P) 35.8 C (96.4 F) SpO2: (P) 97% Weight: (P) 83 kg (183 lb) Physical Exam Constitutional: Appearance: Normal appearance. HENT: Head: Normocephalic. Eyes: Conjunctiva/sclera: Conjunctivae normal. Cardiovascular: Rate and Rhythm: Normal rate and regular rhythm. Heart sounds: Normal heart sounds. Pulmonary: Effort: Pulmonary effort is normal. Breath sounds: Normal breath sounds. Skin: General: Skin is warm and dry. Neurological: General: No focal deficit present. Mental Status: She is alert and oriented to person, place, and time. Psychiatric: Mood and Affect: Mood normal. Behavior: Behavior normal. Thought Content: Thought content normal. Judgment: Judgment normal. Last labs reviewed. Assessment and Plan ASSESSMENT/PLAN: 1. Essential hypertension - ICD9: 401.9, ICD10: I10 (primary diagnosis) - good control - Continue current medication(s) - Recommended regular aerobic exercise. - Goal of BP <140/90 fine - Goal of BP <130/80 ideally - VERAPAMIL ER (SR) 240 MG TABLET,EXTENDED RELEASE - COMP METABOLIC PANEL - CBC 2. Vitamin D deficiency - ICD9: 268.9, ICD10: E55.9 Has been fine - VITAMIN D 25 HYDROXY--adjust replacement as needed 3. Acquired hypothyroidism - ICD9: 244.9, ICD10: E03.9 - Instructed patient on importance of taking on an empty stomach either first thing in the morning or at bedtime. - continue current dose of Synthroid 0.025 mg Clinically euthyroid. TSH fine. Continue to adjust dose of replacement as indicated based on symptoms and labs. - TSH BLD - T4 FREE/FREE THYROX - T3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 Complaint and Reason for Visit Chief Complaint TOTAL LEFT SHOULDER/ DR TO FAX Chief Complaint Syncope Chief Complaint Syncope HTN / SYNCOPE (KEYLA) Amb Documentation Reason for Visit Essential hypertensi on Syncope Chief Complaint Syncope HTN / SYNCOPE (KEYLA) Amb Documentation ABN STRESS TEST ABN STRESS TEST Reason for Visit Essential hypertensi on Syncope Chief Complaint Admit Date VERTIGO December 03, 2024 8 :09am Vertigo December 03, 2024 7 :20pm Vertigo December 04, 2024 1 1:56am IMPAIRED AMBULATION,DECREASED BAL/RX HER E December 10, 2024 8:50am Reason for Visit Admit Date Acute urinary retention December 03 8:09am Essential hypertension December 03 8:09am Hypothyroidism December 03, 2024 8 :09am Vertigo December 03, 2024 8 :09am Reason for Referral Specialty Diagnoses / Procedures Referred By Marlene nolasco Referred To Contact Cardiology Diagnoses Uncontrolled hypertension Syncope, unspecified syncope type Procedures CONSULT TO CARDIOLOGY OFFICE/OUTPATIENT [facility] 60-74 MINUTES Patricia Shah, DEDENTER.STEM LEAD FORMER [address] [place] [address] Referral ID Status Reason Start Date Expiration Date Visits Requested Visits Authorized [id number] Authorized PCP Requested Referral 07/03/2023 07/02/2024 1 1 Specialty Diagnoses / Procedures Referred By Marlene nolasco [facility] Diagnoses Uncontrolled hypertension Syncope, unspecified syncope type Procedures ECHO ECHO TTHRC R-T 2D W/WOM-MODE COMPL SPEC&COLR D Patricia Shah, DEDENTER.STEM LEAD FORMER [address] [place] [address] Heart [facility] V[facility] Check [address] [place] [address] Referral ID Status Reason Start Date Expiration Date Visits Requested Visits Authorized [id number] Authorized Auto-Generat ed Referral 07/03/2023 07/02/2024 1 1 Summary Purpose Additional Source Comments Reason for Visit (unrecogniz ed section and content) Reason For Visit Description New - 1st visit with practice Preliminary reason f or visit data, not yet signed by the author as of left shoulder pain Reason Comments F/U 6 months Reason Comments Surgery shoulder replacement Reason Comments Results Reason Comments Refill Request Reason Comments Hospital F/U Reason Comments Follow Up zio monitor placemen t Reason Comments Sore Throat Cough x2 days Reason Onset Date Comments Refill Request 07/31/2024 Medication Problem 07/31/2024 Patient is ou t of medication Reason Comments F/U 6 months Labs prior Reason Comments Hospital F/U Reason Comments Nasal Congestion drainage, cough x 2 weeks Reason Comments Medicare Wellness Exam wants a referral to ortho for right knee and needs to see urology at [facility] for urinary issues Source Comments (unrecognize d section and content) In the event this informatio n is protected by the Federal Confidentiality of Alcohol and Drug Abuse Patient Records regulations: The Federal rules restrict any use of the information to criminally investigate or prosecute any alcohol or drug abuse patient.[facility] the event this information is protected by the Federal Confidentiality of Alcohol and Drug Abuse Patient Records regulations: The Federal rules restrict any use of the information to criminally investigate or prosecute any alcohol or drug abuse patient.[facility]In the event this information is protected by the Federal Confidentiality of Alcohol and Drug Abuse Patient Records regulations: The Federal rules restrict any use of the information to criminally investigate or prosecute any alcohol or drug abuse patient.[facility] DaytonIn the event this information is protected by the Federal Confidentiality of Alcohol and Drug Abuse Patient Records regulations: The Federal rules restrict any use of the information to criminally investigate or prosecute any alcohol or drug abuse patient.[facility] DaytonIn the event this information is protected by the Federal Confidentiality of Alcohol and Drug Abuse Patient Records regulations: The Federal rules restrict any use of the information to criminally investigate or prosecute any alcohol or drug abuse patient.[facility] DaytonIn the event this information is protected by the Federal Confidentiality of Alcohol and Drug Abuse Patient Records regulations: The Federal rules restrict any use of the information to criminally investigate or prosecute any alcohol or drug abuse patient.[facility] DaytonIn the event this information is protected by the Federal Confidentiality of Alcohol and Drug Abuse Patient Records regulations: The Federal rules restrict any use of the information to criminally investigate or prosecute any alcohol or drug abuse patient.[facility] DaytonIn the event this information is protected by the Federal Confidentiality of Alcohol and Drug Abuse Patient Records regulations: The Federal rules restrict any use of the information to criminally investigate or prosecute any alcohol or drug abuse patient.[facility] DaytonIn the event this information is protected by the Federal Confidentiality of Alcohol and Drug Abuse Patient Records regulations: The Federal rules restrict any use of the information to criminally investigate or prosecute any alcohol or drug abuse patient.[facility] DaytonIn the event this information is protected by the Federal Confidentiality of Alcohol and Drug Abuse Patient Records regulations: The Federal rules restrict any use of the information to criminally investigate or prosecute any alcohol or drug abuse patient.[facility] the event this information is protected by the Federal Confidentiality of Alcohol and Drug Abuse Patient Records regulations: The Federal rules restrict any use of the information to criminally investigate or prosecute any alcohol or drug abuse patient.[facility] the event this information is protected by the Federal Confidentiality of Alcohol and Drug Abuse Patient Records regulations: The Federal rules restrict any use of the information to criminally investigate or prosecute any alcohol or drug abuse patient.[facility] the event this information is protected by the Federal Confidentiality of Alcohol and Drug Abuse Patient Records regulations: The Federal rules restrict any use of the information to criminally investigate or prosecute any alcohol or drug abuse patient.[facility] the event this information is protected by the Federal Confidentiality of Alcohol and Drug Abuse Patient Records regulations: The Federal rules restrict any use of the information to criminally investigate or prosecute any alcohol or drug abuse patient.[facility] the event this information is protected by the Federal Confidentiality of Alcohol and Drug Abuse Patient Records regulations: The Federal rules restrict any use of the information to criminally investigate or prosecute any alcohol or drug abuse patient.[facility] the event this information is protected by the Federal Confidentiality of Alcohol and Drug Abuse Patient Records regulations: The Federal rules restrict any use of the information to criminally investigate or prosecute any alcohol or drug abuse patient.[facility] the event this information is protected by the Federal Confidentiality of Alcohol and Drug Abuse Patient Records regulations: The Federal rules restrict any use of the information to criminally investigate or prosecute any alcohol or drug abuse patient.[facility] Care Teams (unrecognized sec tion and content) Band Tacker Relationship Specialty Start Date End Date Carmela Wisdom MD [address] [place] [address] PCP - General Internal Medicine 09/21/11 Band Tacker Relationship Specialty Start Date End Date Carmela Wisdom MD [address] [place] [address] PCP - General Internal Medicine 09/21/11 Band Tacker Relationship Specialty Start Date End Date Carmela Wisdom MD [address] [place] [address] PCP - General Internal Medicine 09/21/11 Band Tacker Relationship Specialty Start Date End Date Carmela Wisdom MD [address] [place], [place] [id number] PCP - General Internal Medicine 09/21/11 Team Status: Active Member Role Status Dates Bonilla Pedraza Family Provider Active Dr. Carmela Wisdom MD Primary Care Provider Active Team Status: Inactive Member Role Status Dates Dr. Reggie Vela MD Attending Provider, Aravind gutierrez Active Dr. Carmela Wisdom MD Primary Care Provider Active Band Tacker Relationship Specialty Start Date End Date Carmela Wisdom MD [address] [place], [place] [id number] PCP - General Internal Medicine 09/21/11 Team Status: Inactive Member Role Status Dates Dr. Carmela Wisdom MD Primary Care Provider Active Dr. Enrique Bedolla DO Emergency Provider Active Band Tacker Relationship Specialty Start Date End Date Carmela Wisdom MD [address] [place] [address] PCP - General Internal Medicine 09/21/11 Band Tacker Relationship Specialty Start Date End Date Carmela Wisdom MD [address] [place] [address] PCP - General Internal Medicine 09/21/11 Band Tacker Relationship Specialty Start Date End Date Carmela Wisdom MD [address] [place] [address] PCP - General Internal Medicine 09/21/11 Team Status: Inactive Member Role Status Dates Dr. Carmela Wisdom MD Primary Care Provider, Referr ing Provider Active Dr. Rich Thapa MD Attending Provider Active Team Status: Active Member Role Status Dates Dr. Carmela Wisdom MD Primary Care Provider Active Dr. Rich Thapa MD Attending Provider, Referring Provider, Other Provider Active Team Status: Active Member Role Status Dates Dr. Carmela Wisdom MD Primary Care Provider Active Marino Camara OXYGEN EQUIPMENT PREPARER, OXYGEN EQUIPMENT PREPARER-C Attending Provider Active Team Status: Inactive Member Role Status Dates Dr. Carmela Wisdom MD Primary Care Provider Active Dr. Rich Thapa MD Attending Provider, Referring Pro vider Active Team Status: Inactive Member Role Status Dates Dr. Carmela Wisdom MD Primary Care Provider Active Dr. Enrique Bedolla DO Attending Provider, Bladimir gutierrez Active Team Status: Active Member Role Status Dates Dr. Carmela Wisdom MD Primary Care Provider Active Dr. Rich Thapa MD Attending Provider, Referring Provider, Other Provider Active Marino Camara OXYGEN EQUIPMENT PREPARER, OXYGEN EQUIPMENT PREPARER-C Other Provider Active Team Status: Inactive Member Role Status Dates Dr. Carmela Wisdom MD Primary Care Provider Active Dr. Rich Thapa MD Attending Provider, Referring Pro vider Active Marino Camara OXYGEN EQUIPMENT PREPARER, OXYGEN EQUIPMENT PREPARER-C Other Provider Active Band Tacker Relationship Specialty Start Date End Date Carmela Wisdom MD [address] [place], [place] [id number] PCP - General Internal Medicine 09/21/11 Band Tacker Relationship Specialty Start Date End Date Carmela Wisdom MD [address] [place], [place] [id number] PCP - General Internal Medicine 09/21/11 Band Tacker Relationship Specialty Start Date End Date Carmela Wisdom MD [address] [place] [address] PCP - General Internal Medicine 09/21/11 Band Tacker Relationship Specialty Start Date End Date Carmela Wisdom MD [address] [place] [address] PCP - General Internal Medicine 09/21/11 Band Tacker Relationship Specialty Start Date End Date Carmela Wisdom MD [address] [place] [address] PCP - General Internal Medicine 09/21/11 Band Tacker Relationship Specialty Start Date End Date Carmela Wisdom MD [address] [place] [address] PCP - General Internal Medicine 09/21/11 Patricia Shah, DEDENTER.STEM LEAD FORMER [address] [place] [address] Vacuum Metalizer Operator Internal Medicine 10/27/24 Ginger Juarez, DEDENTER.PASSENGER ELEVATOR OPERATOR [address] [place] [address] Vacuum Metalizer Operator Internal Medicine 10/27/24 Band Tacker Relationship Specialty Start Date End Date Carmela Wisdom MD [address] [place] [address] PCP - General Internal Medicine 09/21/11 Patricia Shah, DEDENTER.STEM LEAD FORMER [address] [place] [address] Vacuum Metalizer Operator Internal Medicine 10/27/24 Ginger Juarez APRN.PASSENGER ELEVATOR OPERATOR [address] [facility] [place] [address] [facility] Internal Medicine 02/10/25 Team Status: Inactive Member Role Status Dates Dr. Carmela Wisdom MD Primary Care Provider Active Start: December 03, 2024 End: December 04, 2024 Dr. Irvin Frank DO Emergency Provider Active Start: December 03, 2024 End: December 04, 2024 Dr. Armin Georges MD Admit Provider Active Start: December 03, 2024 End: December 04, 2024 Dr. Armin Georges MD Attending Provider Active Start: December 03, 2024 End: December 04, 2024 Team Status: Active Member Role Status Dates Dr. Carmela Wisdom MD Primary Care Provider Active Start: December 03, 2024 Dr. Irvin Frank DO Emergency Provider Active Start: December 03, 2024 Dr. Armin Georges MD Admit Provider Active Start: December 03, 2024 Dr. Armin Georges MD Attending Provider Active Start: December 03, 2024 Dr. Armin Georges MD Other Provider Active Start: December 03, 2024 Team Status: Active Member Role Status Dates Dr. Carmela Wisdom MD Primary Care Provider Active Start: December 04, 2024 Dr. Irvin Frank DO Emergency Provider Active Start: December 04, 2024 Dr. Armin Georges MD Admit Provider Active Start: December 04, 2024 Dr. Armin Georges MD Attending Provider Active Start: December 04, 2024 Dr. Armin Georges MD Other Provider Active Start: December 04, 2024 Team Status: Inactive Member Role Status Dates Dr. Carmela Wisdom MD Primary Care Provider Active Start: December 10, 2024 End: December 10, 2024 Dr. Armin Georges MD Attending Provider Active Start: December 10, 2024 End: December 10, 2024 Dr. Armin Georges MD Referring Provider Active Start: December 10, 2024 End: December 10, 2024 Band Tacker Relationship Specialty Start Date End Date Carmela Wisdom MD [address] [place] [address] PCP - General Internal Medicine 09/21/11 Ginger Juarez DEDENTER.PASSENGER ELEVATOR OPERATOR [address] [place], [place] [address] Vacuum Metalizer Operator Internal Medicine 02/10/25 Patricia Shah, DEDENTER.STEM LEAD FORMER [address] [place] [address] Vacuum Metalizer Operator Internal Medicine 04/08/25 Goals (unrecognized section and content) Goals may be documented in a n alternate sectionGoals may be documented in an alternate sectionGoals may be documented in an alternate sectionGoals may be documented in an alternate section INFORMATION SOURCE (unrecogn ized section and content) DATE CREATED AUTHOR 04/01/2025 [facility] DATE CREATED AUTHOR AUTHOR'S DEVIN FUNK 04/27/2025 [facility] FOR RECORDS PERTAINING TO PATIENTS WHO ARE OR HAVE BEEN ENROLLED IN A CHEMICAL DEPENDENCY/SUBSTANCEABUSE PROGRAM, SOME INFORMATION MAY BE OMITTED. This clinical summary was aggregated from multiple sources. Caution should be exercised in using it in the provision of clinical care. This summary normalizes information from multiple sources, and as a consequence, information in this document may materially change the coding, format and clinical context of patient data. In addition, data may be omitted in some cases. CLINICAL DECISIONS SHOULD BE BASED ON THE PRIMARY CLINICAL RECORDS. [employer] provides no warranty or guarantee of the accuracy or completeness of information in this document.
--- NOTE | 2025-10-15 18:33 | ED.VIS.FALL ---
HPI HPI - Fall History of Present Illness Chief Complaint: Fall Narrative Narrative: Chief complaint and HPI: 80-year-old female with past medical history of HTN, HLD, hypothyroidism presents for evaluation of closed head injury after mechanical fall. Patient states she was walking up steps when she fell forward and hit her forehead on a step. Denies LOC. Not on blood thinners. Denies any headache, chest pain, shortness of breath, nausea, vomiting, numbness/tingling. Review of systems: See HPI Medications: As listed on the chart Allergies: As listed on the chart PFSH: Per chart Vital signs: As listed on the chart. Reviewed. Physical exam: Gen: A&O x3, NAD Head: Normocephalic, atraumatic Eyes: No sclera icterus, conjunctiva clear, PERRL, EOMI ENT: TMs clear BL, moist mucous membranes, face atraumatic Neck: Trachea midline, no midline spinal tenderness, no bony step-offs, mild tenderness to palpation of the left paraspinal cervical musculature CV: RRR, no murmurs, no chest wall TTP Resp: Lungs CTA BL, no w/r/c GI: Abd soft, non-distended, non-tender, no r/r/g Musc: Full ROM, no deformity, no spinal TTP, no lexie step-offs Skin: Warm, dry, intact Neuro: Alert, oriented, grossly intact, sensation intact, GCS 15 Psych: Cooperative, appropriate mood and affect [facility] Medical History Hypothyroidism Syncope Diverticulosis SCC (squamous cell carcinoma) Osteoarthritis Obesity Migraine Essential hypertension Overactive bladder Home Medications ?Medication ?Instructions ?Recorded ?Last Taken ?Type levothyroxine 25 mcg tablet 25 mcg PO DAILY 07/01/23 12/02/24 History lisinopril 10 mg tablet 10 mg PO DAILY #30 tabs 07/01/23 12/02/24 Rx verapamil 240 mg tablet,extended 240 mg PO DAILY 07/01/23 12/02/24 History release aspirin 81 mg tablet,delayed 81 mg PO DAILY 07/17/23 12/02/24 History release (Adult Low Dose Aspirin) cholecalciferol (vitamin D3) 50 4,000 unit PO DAILY 07/17/23 12/02/24 History mcg (2,000 unit) tablet cranberry fruit 400 mg capsule 400 mg PO DAILY 07/17/23 12/02/24 History atorvastatin 20 mg tablet (Lipitor) 20 mg PO .daily #90 tabs 09/14/23 12/02/24 Rx Allergy/AdvReac Type Severity Reaction Status Date / Time omeprazole Allergy Unknown unknown Verified 10/15/25 17:44 Sulfa (Sulfonamide Allergy Unknown PT UNSURE Verified 10/15/25 17:44 Antibiotics) OF REACTION Family History Sister CAD (coronary artery disease) Diabetes Brain tumor Brother Diabetes Heart disease Mother Diabetes Heart disease Father Heart disease Surgical History H/O shoulder replacement History of colonoscopy History of left heart catheterization (04/05/09) History of tubal ligation Hx of tonsillectomy Social History Smoking Status: Never smoker alcohol intake: never substance use type: does not use caffeine: Yes Type: carbonated beverages EXAM Physical Exam Const Vital Signs: 10/15/25 17:42 Temperature 97.6 F L Temperature Source Temporal Pulse Rate 65 Respiratory Rate 15 Blood Pressure 188/90 H Blood Pressure Mean 122 Pulse Ox 96 Oxygen Delivery Method Room Air MDM MDM MDM Narrative Medical decision making narrative: 80-year-old female with past medical history of HTN, HLD, hypothyroidism presents for evaluation of closed head injury after mechanical fall. Patient states she was walking up steps when she fell forward and hit her forehead on a step. Denies LOC. Not on blood thinners. See physical exam findings. Differential diagnosis includes but is not limited to contusion suspect less likely fracture or intracranial bleed. CT head and neck obtained. Given this was purely mechanical fall I do not think any laboratory workup is needed. CT head and neck without any acute traumatic injury. Patient has chronic/degenerative changes of the cervical spine. Patient stable to discharge home. Tylenol or Motrin if develops headache. Follow-up with primary care physician. She affirmed understand the plan. Patient will discharge home. Impression: 1. Mechanical fall 2. Head contusion Radiography Diagnostic Testing: Clinical Impression(s) from Imaging Studies Brain CT 10/15/25 18:46 IMPRESSION: No acute traumatic findings. Chronic/degenerative changes as described. Reading Location: [facility] Cervical Spine CT 10/15/25 18:46 IMPRESSION: No acute traumatic findings. Chronic/degenerative changes as described. Reading Location: [facility] Discharge Plan Triage Chief Complaint: Fall ED Provider: Nick Owen Dx/Rx/DC Orders Prescriptions: No Action aspirin [Adult Low Dose Aspirin] 81 mg tablet,delayed release (DR/EC) 81 mg PO DAILY cholecalciferol (vitamin D3) 50 mcg (2,000 unit) tablet 4,000 unit PO DAILY cranberry fruit 400 mg capsule 400 mg PO DAILY Rx Instructions: administer with a meal verapamil 240 mg tablet extended release 240 mg PO DAILY Patient Comments: TAKE 1 TABLET BY MOUTH EVERY DAY levothyroxine 25 mcg tablet 25 mcg PO DAILY Patient Comments: TAKE 1 TABLET BY MOUTH ONCE DAILY. TAKE ON EMPTY STOMACH. FOR THYROID. lisinopril 10 mg tablet 10 mg PO DAILY Qty: 30 0RF atorvastatin [Lipitor] 20 mg tablet 20 mg PO .daily Qty: 90 3RF Primary Care Provider: Heather Desouza Referrals: Heather Desouza MD [Primary Care Provider, Internal Medicine] Print Language: Nepali
--- NOTE | 2025-10-15 18:46 | CT_ITS ---
PROCEDURE: CT BRAIN/HEAD; SPINE CERVICAL WITHOUT CONTRAST 10/15/2025 REASON FOR EXAM: TRAUMA TECHNIQUE: Procedure Code: CTBR; CTSPC Modality: CT Procedure: BRAIN/HEAD WITHOUT CONTRAST; SPINE CERVICAL WITHOUT CONTRAS Coronal and Sagittal reconstruction series were provided. One or more dose reduction techniques were used (e.g., Automated exposure control, adjustment of the mA and/or kV according to patient size, use of iterative reconstruction technique. RADIATION DOSE SUMMARY: DLP: 1131.82 mGycm COMPARISON: Head CT and MRI exams 12/03/2024. FINDINGS: HEAD: No acute intracranial hemorrhage, extra-axial collection, mass effect or evidence of acute infarct. Ventricles and subarachnoid spaces are normal in size. Absent ambler ocular lenses. Atherosclerotic vascular calcifications. Intact skull base and calvarium. Clear sinuses and mastoid air cells. CERVICAL SPINE: No acute fracture or subluxation. Positional and/or degenerative straightening of the cervical lordosis. Trace degenerative grade 1 anterolisthesis of C7 on T1. Mild multilevel spondylotic changes with varying degrees of disc space narrowing, endplate sclerosis and anterior osteophytosis, uncovertebral spurring and hypertrophic facet arthropathy. No prevertebral soft tissue swelling. Atherosclerotic plaque at the bilateral carotid artery bifurcations. CT/Brain/Head without Contrast IMPRESSION: No acute traumatic findings. Chronic/degenerative changes as described. Reading Location: [id number]
--- NOTE | 2025-10-15 18:46 | CT_ITS ---
PROCEDURE: CT BRAIN/HEAD; SPINE CERVICAL WITHOUT CONTRAST 10/15/2025 REASON FOR EXAM: TRAUMA TECHNIQUE: Procedure Code: CTBR; CTSPC Modality: CT Procedure: BRAIN/HEAD WITHOUT CONTRAST; SPINE CERVICAL WITHOUT CONTRAS Coronal and Sagittal reconstruction series were provided. One or more dose reduction techniques were used (e.g., Automated exposure control, adjustment of the mA and/or kV according to patient size, use of iterative reconstruction technique. RADIATION DOSE SUMMARY: DLP: 1131.82 mGycm COMPARISON: Head CT and MRI exams 12/03/2024. FINDINGS: HEAD: No acute intracranial hemorrhage, extra-axial collection, mass effect or evidence of acute infarct. Ventricles and subarachnoid spaces are normal in size. Absent [place] ocular lenses. Atherosclerotic vascular calcifications. Intact skull base and calvarium. Clear sinuses and mastoid air cells. CERVICAL SPINE: No acute fracture or subluxation. Positional and/or degenerative straightening of the cervical lordosis. Trace degenerative grade 1 anterolisthesis of C7 on T1. Mild multilevel spondylotic changes with varying degrees of disc space narrowing, endplate sclerosis and anterior osteophytosis, uncovertebral spurring and hypertrophic facet arthropathy. No prevertebral soft tissue swelling. Atherosclerotic plaque at the bilateral carotid artery bifurcations. CT/Spine Cervical without Contras IMPRESSION: No acute traumatic findings. Chronic/degenerative changes as described. Reading Location: [id number]
[2025-10-15 20:18] VITALS: BP 142/70; PULSE 78; RESP 18; TEMP 36.6; O2SAT 97
== END 2025-10-15 20:19 | disposition home or self-care (01) ==
PROVIDERS: Emergency Provider Surgery; PCP Internal Medicine; Visit Provider Surgery
DX: S00.93XA Contusion of unspecified part of head, initial encounter (principal); M47.812 Spondylosis without myelopathy or radiculopathy, cervical region; W10.9XXA Fall (on) (from) unspecified stairs and steps, initial encounter; E78.5 Hyperlipidemia, unspecified; I10 Essential (primary) hypertension; E03.9 Hypothyroidism, unspecified; Z98.51 Tubal ligation status
CPT/HCPCS: 70450; 72125; 99282